=== PATIENT | female | born 1965 ===

== ENCOUNTER → 2020-04-28 13:29 | Outpatient (BNVA) | payer MEDICAID, SELFPAY | PROVIDERS: PCP Internal Medicine; Visit Provider Internal Medicine ==

== ENCOUNTER 2020-06-26 15:23 | Outpatient (REF) | payer OTHER, SELFPAY ==
--- NOTE | ~2020-06-26 | US_ITS ---
EXAMINATION: PELVIC ULTRASOUND CLINICAL INFORMATION: Pelvic and perineal pain. COMPARISON: None TECHNIQUE: Transabdominal and transvaginal pelvic ultrasound performed. FINDINGS: Uterus: 9.2 x 3.3 x 4.3 cm. No masses. Right ovary 1.5 x 1 x 1.8 cm with a volume 1.3 mL. Left ovary 1.8 x 1.3 x 1.7 cm with a volume of 2 mL. Nabothian cysts noted in the cervix. Cul-de-sac Fluid: None. US/US pelvic and transvaginal IMPRESSION: Normal pelvic ultrasound.
== END 2020-06-26 15:24 | disposition home or self-care (01) ==
LOC: HO.US 15:23
PROVIDERS: PCP Internal Medicine; Visit Provider Internal Medicine
DX: R10.2 Pelvic and perineal pain (principal)
CPT/HCPCS: 76830; 76856

== ENCOUNTER → 2020-10-23 13:19 | Outpatient (BNVA) | payer OTHER, SELFPAY | PROVIDERS: PCP Internal Medicine; Visit Provider Internal Medicine | DX: J45.909 Unspecified asthma, uncomplicated (principal) | CPT/HCPCS: 99212 ==

== ENCOUNTER 2020-11-13 12:30 | Outpatient (REF) | payer OTHER, SELFPAY ==
--- NOTE | ~2020-11-13 | XR_ITS ---
EXAMINATION: XR KNEE, RIGHT CLINICAL INFORMATION: Pain COMPARISON: None TECHNIQUE: Four views of the right knee. FINDINGS: Bone alignment is normal. No fracture or dislocation is seen. There may be mild arthritis at the medial femoral tibial joint seen on the sunrise view. The joint spaces are otherwise normal. There is no joint effusion. XR/XR knee RT 3V IMPRESSION: Question mild arthritis at the medial femoral tibial joint otherwise unremarkable exam.
[2020-11-13 13:12] LABS: MANUAL DIFF FLAG NO
[2020-11-13 13:17] LABS: Basophils Absolute Auto 0.1 X10*3/uL (0.0-0.2); Basophils Percent Auto 0.6 % (0-2); Eosinophils Absolute Auto 0.2 X10*3/uL (0.0-0.4); Eosinophils Percent Auto 1.6 % (0-4); Hematocrit 36.1 % (37-47); Hemoglobin 11.1 g/dl (12.0-16.0); Imm Gran Abs Auto 0.04 X10*3/uL (0.00-0.03); Imm Gran Pct Auto 0.4 % (0.0-0.4); Lymphocytes Percent Auto 20.2 % (20-40); Mean Corpuscular HGB Conc 30.7 g/dl (31.0-35.0); Mean Corpuscular Volume 87.8 fL (80-98); Monocytes Absolute Auto 0.5 X10*3/uL (0.1-1.2); Monocytes Percent Auto 4.8 % (2-11); Neutrophils Absolute Auto 7.3 X10*3/uL (2.0-8.3); Neutrophils Percent Auto 72.4 % (45-73); Platelet Count 336 X10*3/uL (160-400); Red Blood Count 4.11 X10*6/uL (4.20-5.50); Red Cell Distribution Width 14.8 % (11.0-16.0); White Blood Count 10.1 X10*3/uL (4.8-10.8)
[2020-11-13 13:46] LABS: Alanine Aminotransferase 14 U/L (0-31); Albumin Level 3.9 g/dL (3.5-5.0); Alkaline Phosphatase 131 U/L (39-117); Anion Gap 12 (12-20); Aspartate Amino Transferase 18 U/L (5-31); Bilirubin Total 0.5 mg/dL (0.0-1.0); Blood Urea Nitrogen 9 mg/dL (9-16); Carbon Dioxide 27 mmol/L (22-29); Chloride 106 mmol/L (96-108); Cholesterol 210 mg/dL; Estimated Glomerular Filt Rate > 60; Glucose Fasting 101 mg/dL (60-99); HDL Cholesterol 41 mg/dL; Iron 47 mcg/dL (30-160); LDL Cholesterol Calculated 137 mg/dl; Percent Iron Saturation 14 % (15-50); Potassium 3.6 mmol/L (3.3-5.1); Sodium 141 mmol/L (135-145); Total Iron Binding Capacity 341 mcg/dL (228-428); Total Protein 7.5 g/dL (6.5-8.0); Triglycerides 162 mg/dL; Unsaturated Iron Binding 294 ug/dL
[2020-11-13 14:06] LABS: TSH reflex Free T4 0.67 uIU/mL (0.32-4.0)
[2020-11-13 14:18] LABS: Folate 15.7 ng/mL (> or = 4.0); Vitamin B12 188 pg/mL (200-900)
[2020-11-19 12:16] LABS: Vitamin D 25-OH, D2 <4 ng/mL; Vitamin D 25-OH, D3 18 ng/mL; Vitamin D 25-OH, Total 18 ng/mL (30-100)
== END 2020-11-13 12:31 | disposition home or self-care (01) ==
LOC: HO.LAB 12:30
PROVIDERS: PCP Internal Medicine; Visit Provider Internal Medicine
DX: Z01.419 Encounter for gynecological examination (general) (routine) without abnormal findings (principal); N89.8 Other specified noninflammatory disorders of vagina; N95.2 Postmenopausal atrophic vaginitis; E55.9 Vitamin D deficiency, unspecified; M25.561 Pain in right knee; E78.5 Hyperlipidemia, unspecified; K21.9 Gastro-esophageal reflux disease without esophagitis; D64.9 Anemia, unspecified; D50.9 Iron deficiency anemia, unspecified; E66.3 Overweight
CPT/HCPCS: 36415; 73562; 80053; 80061; 82306; 82607; 82746; 83540; 84443; 85025

== ENCOUNTER 2020-12-10 15:53 | Outpatient (REF) | payer OTHER, SELFPAY ==
[2020-12-10 16:42] LABS: MANUAL DIFF FLAG NO
[2020-12-10 16:48] LABS: Basophils Absolute Auto 0.1 X10*3/uL (0.0-0.2); Basophils Percent Auto 0.6 % (0-2); Eosinophils Absolute Auto 0.2 X10*3/uL (0.0-0.4); Eosinophils Percent Auto 2.1 % (0-4); Hematocrit 35.9 % (37-47); Hemoglobin 11.2 g/dl (12.0-16.0); Imm Gran Abs Auto 0.05 X10*3/uL (0.00-0.03); Imm Gran Pct Auto 0.4 % (0.0-0.4); Lymphocytes Absolute Auto 4.3 X10*3/uL (1.2-4.9); Lymphocytes Percent Auto 36.9 % (20-40); Mean Corpuscular HGB Conc 31.2 g/dl (31.0-35.0); Mean Corpuscular Hemoglobin 27.5 pg (27.0-33.0); Mean Platelet Volume 10.6 fL (9.4-12.3); Monocytes Absolute Auto 0.4 X10*3/uL (0.1-1.2); Monocytes Percent Auto 3.5 % (2-11); Neutrophils Absolute Auto 6.5 X10*3/uL (2.0-8.3); Neutrophils Percent Auto 56.5 % (45-73); Platelet Count 348 X10*3/uL (160-400); Red Blood Count 4.08 X10*6/uL (4.20-5.50); Red Cell Distribution Width 14.4 % (11.0-16.0); White Blood Count 11.5 X10*3/uL (4.8-10.8)
[2020-12-10 17:05] LABS: Alanine Aminotransferase 18 U/L (0-31); Albumin Level 3.8 g/dL (3.5-5.0); Alkaline Phosphatase 108 U/L (39-117); Anion Gap 12 (12-20); Aspartate Amino Transferase 17 U/L (5-31); Bilirubin Total < 0.2 mg/dL (0.0-1.0); Blood Urea Nitrogen 8 mg/dL (9-16); Calcium 8.8 mg/dL (8.4-10.2); Carbon Dioxide 27 mmol/L (22-29); Chloride 104 mmol/L (96-108); Cholesterol 211 mg/dL; Estimated Glomerular Filt Rate > 60; Glucose Fasting 99 mg/dL (60-99); HDL Cholesterol 37 mg/dL; LDL Cholesterol Calculated 131 mg/dl; Potassium 3.5 mmol/L (3.3-5.1); Sodium 139 mmol/L (135-145); Total Protein 7.2 g/dL (6.5-8.0); Triglycerides 218 mg/dL
[2020-12-16 00:22] LABS: Intrinsic Factor Antibodies Negative (Negative)
[2020-12-16 11:51] LABS: Parietal Cell Antibody <=20.0 Unit (<=20.0)
[2020-12-16 16:41] LABS: Vitamin D 25-OH, D2 <4 ng/mL; Vitamin D 25-OH, D3 13 ng/mL; Vitamin D 25-OH, Total 13 ng/mL (30-100)
== END 2020-12-10 15:54 | disposition home or self-care (01) ==
LOC: HO.LAB 15:53
PROVIDERS: PCP Internal Medicine; Visit Provider Internal Medicine
DX: E66.3 Overweight (principal); E53.8 Deficiency of other specified B group vitamins; E55.9 Vitamin D deficiency, unspecified; D64.9 Anemia, unspecified; E78.5 Hyperlipidemia, unspecified
CPT/HCPCS: 36415; 80053; 80061; 82306; 83516; 85025; 86340

== ENCOUNTER → 2021-06-01 13:26 | Outpatient (BNVA) | payer OTHER, SELFPAY | PROVIDERS: PCP Internal Medicine; Visit Provider Internal Medicine | DX: J45.909 Unspecified asthma, uncomplicated (principal) | CPT/HCPCS: 99212 ==

== ENCOUNTER 2021-07-30 15:33 | Outpatient (REF) | payer OTHER, SELFPAY ==
--- NOTE | 2021-07-30 15:38 | ECG_ITS ---
Test Reason : abn ekg Blood Pressure : / mmHG Vent. Rate : 092 BPM Atrial Rate : 092 BPM P-R Int : 160 ms QRS Dur : 078 ms QT Int : 382 ms P-R-T Axes : 063 065 062 degrees QTc Int : 472 ms Normal sinus rhythm Normal ECG When compared with ECG of 26-OCT-2005 07:32, No significant change was found Referred By: Susannah Manzo Electronically Signed By:PRATEEK VELASQUEZ MD
[2021-07-30 15:49] LABS: MANUAL DIFF FLAG NO
[2021-07-30 16:04] LABS: Basophils Absolute Auto 0.1 X10*3/uL (0.0-0.2); Basophils Percent Auto 0.9 % (0-2); Eosinophils Absolute Auto 0.3 X10*3/uL (0.0-0.4); Eosinophils Percent Auto 3.2 % (0-4); Hematocrit 30.5 % (37.0-47.0); Hemoglobin 9.2 g/dl (12.0-16.0); Imm Gran Abs Auto 0.04 X10*3/uL (0.00-0.03); Imm Gran Pct Auto 0.4 % (0.0-0.4); Immature Retic Fraction 15.2 % (3.0-15.9); Lymphocytes Absolute Auto 2.6 X10*3/uL (1.2-4.9); Lymphocytes Percent Auto 26.2 % (20-40); Mean Corpuscular HGB Conc 30.2 g/dl (31.0-35.0); Mean Corpuscular Hemoglobin 26.4 pg (27.0-33.0); Mean Corpuscular Volume 87.4 fL (80.0-98.0); Mean Platelet Volume 9.7 fL (9.4-12.3); Monocytes Absolute Auto 0.5 X10*3/uL (0.1-1.2); Monocytes Percent Auto 4.8 % (2-11); Neutrophils Absolute Auto 6.3 x10*3/uL (2.0-8.3); Neutrophils Percent Auto 64.5 % (45-73); Platelet Count 684 X10*3/uL (160-400); Red Blood Count 3.49 X10*6/uL (4.20-5.50); Red Cell Distribution Width 14.7 % (11.0-16.0); Retic HGB Equivalent 26.6 pg (30.0-35.0); Reticulocyte Percent 2.2 % (0.5-1.8); Reticulocytes Absolute 0.076 X10*6/uL (0.026-0.095); White Blood Count 9.8 X10*3/uL (4.8-10.8)
[2021-07-30 16:32] LABS: Glucose Random 93 mg/dL (60-115)
[2021-07-30 16:33] LABS: Alanine Aminotransferase 10 U/L (0-31); Albumin Level 3.8 g/dL (3.5-5.0); Alkaline Phosphatase 119 U/L (39-117); Anion Gap 13 (12-20); Aspartate Amino Transferase 17 U/L (5-31); Bilirubin Total < 0.2 mg/dL (0.0-1.0); Blood Urea Nitrogen 13 mg/dL (9-16); Calcium 8.9 mg/dL (8.4-10.2); Carbon Dioxide 23 mmol/L (22-29); Chloride 106 mmol/L (96-108); Estimated Glomerular Filt Rate 54; Iron 32 mcg/dL (30-160); Percent Iron Saturation 9 % (15-50); Potassium 4.2 mmol/L (3.3-5.1); Sodium 138 mmol/L (135-145); Total Iron Binding Capacity 367 mcg/dL (228-428); Total Protein 7.8 g/dL (6.5-8.0); Unsaturated Iron Binding 335 ug/dL
[2021-07-30 16:55] LABS: Ferritin 51 ng/mL (10-250); TSH reflex Free T4 0.56 uIU/mL (0.32-4.0); Vitamin D 25-OH Total 38.4 ng/mL (>30)
[2021-07-30 17:09] LABS: Folate > 20.0 ng/mL (> or = 4.0); Vitamin B12 234 pg/mL (200-900)
== END 2021-07-30 15:34 | disposition home or self-care (01) ==
LOC: HO.LAB 15:33
PROVIDERS: Absent Provider Internal Medicine; PCP Internal Medicine; Visit Provider Nurse Practitioner Family
DX: Z13.29 Encounter for screening for other suspected endocrine disorder (principal); D50.9 Iron deficiency anemia, unspecified; E53.8 Deficiency of other specified B group vitamins; R94.31 Abnormal electrocardiogram [ECG] [EKG]; Z96.641 Presence of right artificial hip joint
CPT/HCPCS: 36415; 80053; 82306; 82607; 82728; 82746; 83540; 84443; 85025; 85045; 93005

== ENCOUNTER 2021-08-20 16:07 | Outpatient (REF) | payer OTHER, SELFPAY ==
[2021-08-20 16:28] LABS: MANUAL DIFF FLAG NO
[2021-08-20 16:35] LABS: Basophils Absolute Auto 0.1 X10*3/uL (0.0-0.2); Eosinophils Absolute Auto 0.2 X10*3/uL (0.0-0.4); Eosinophils Percent Auto 2.4 % (0-4); Hemoglobin 8.9 g/dl (12.0-16.0); Imm Gran Abs Auto 0.02 X10*3/uL (0.00-0.03); Imm Gran Pct Auto 0.2 % (0.0-0.4); Lymphocytes Absolute Auto 2.9 X10*3/uL (1.2-4.9); Lymphocytes Percent Auto 30.4 % (20-40); Mean Corpuscular HGB Conc 30.7 g/dl (31.0-35.0); Mean Corpuscular Volume 87.9 fL (80.0-98.0); Mean Platelet Volume 10.4 fL (9.4-12.3); Monocytes Absolute Auto 0.5 X10*3/uL (0.1-1.2); Neutrophils Absolute Auto 5.8 x10*3/uL (2.0-8.3); Platelet Count 334 X10*3/uL (160-400); Red Cell Distribution Width 14.5 % (11.0-16.0); White Blood Count 9.6 X10*3/uL (4.8-10.8)
[2021-08-20 16:57] LABS: Alanine Aminotransferase 12 U/L (0-31); Albumin Level 3.8 g/dL (3.5-5.0); Alkaline Phosphatase 109 U/L (39-117); Anion Gap 12 (12-20); Aspartate Amino Transferase 18 U/L (5-31); Bilirubin Total 0.2 mg/dL (0.0-1.0); Blood Urea Nitrogen 12 mg/dL (9-16); C Reactive Protein 0.59 mg/dL (< or = 0.50); Calcium 8.8 mg/dL (8.4-10.2); Carbon Dioxide 27 mmol/L (22-29); Chloride 103 mmol/L (96-108); Cholesterol 190 mg/dL; Estimated Glomerular Filt Rate 54; Glucose Fasting 93 mg/dL (60-99); HDL Cholesterol 44 mg/dL; Iron 23 mcg/dL (30-160); LDL Cholesterol Calculated 125 mg/dl; Percent Iron Saturation 7 % (15-50); Potassium 3.7 mmol/L (3.3-5.1); Sodium 138 mmol/L (135-145); Total Iron Binding Capacity 352 mcg/dL (228-428); Total Protein 7.3 g/dL (6.5-8.0); Triglycerides 109 mg/dL; Unsaturated Iron Binding 329 ug/dL
[2021-08-20 17:18] LABS: Thyroid Stimulating Hormone 0.74 uIU/mL (0.32-4.0)
[2021-08-20 17:32] LABS: Erythrocyte Sedimentation Rate 33 MM/HR (0-20)
[2021-08-20 17:37] LABS: Folate > 20.0 ng/mL (> or = 4.0); Vitamin B12 214 pg/mL (200-900)
[2021-08-25 14:32] LABS: Vitamin D 25-OH, D2 62 ng/mL; Vitamin D 25-OH, D3 6 ng/mL; Vitamin D 25-OH, Total 68 ng/mL (30-100)
== END 2021-08-20 16:08 | disposition home or self-care (01) ==
LOC: HO.LAB 16:07
PROVIDERS: PCP Internal Medicine; Visit Provider Nurse Practitioner Family
DX: D50.9 Iron deficiency anemia, unspecified (principal); E55.9 Vitamin D deficiency, unspecified; M79.7 Fibromyalgia; D64.9 Anemia, unspecified; E53.8 Deficiency of other specified B group vitamins; E78.00 Pure hypercholesterolemia, unspecified; E66.3 Overweight; E78.5 Hyperlipidemia, unspecified; Z96.641 Presence of right artificial hip joint
CPT/HCPCS: 36415; 80053; 80061; 82306; 82607; 82746; 83540; 84443; 85025; 85027; 85652; 86140

== ENCOUNTER → 2021-10-16 10:10 | Outpatient (BNVA) | payer OTHER, SELFPAY | PROVIDERS: PCP Internal Medicine; Visit Provider Nurse Practitioner Family | DX: Z12.11 Encounter for screening for malignant neoplasm of colon (principal); K21.9 Gastro-esophageal reflux disease without esophagitis | CPT/HCPCS: 99202; 99212 ==

== ENCOUNTER 2021-10-30 10:50 | Outpatient (REF) | payer OTHER, SELFPAY ==
--- NOTE | ~2021-10-30 | US_ITS ---
EXAMINATION: MM DIAGNOSTIC DIGITAL BREAST TOMOSYNTHESIS, BILATERAL US DIAGNOSTIC ULTRASOUND BREAST, LEFT CLINICAL INFORMATION: Due for yearly. Palpable concern noted by patient outer left breast for approximately 6 months. The lifetime risk of breast cancer based on the Tyrer-Cuzick Model is 11%. COMPARISON: Outside mammography: 01/16/2021, 12/07/2019, 07/08/2016 ([facility]). TECHNIQUE: Digital breast tomosynthesis is performed in both the craniocaudal and mediolateral oblique views along with computer-aided detection (CAD). Synthesized 2D images are generated from the tomosynthesis. Ultrasound left breast is targeted to the outer quadrant using grayscale imaging and color Doppler without and with harmonics. Patient is able to directly point to area of concern at time of imaging. FINDINGS: There are scattered areas of fibroglandular density (ACR BI-RADS breast composition Category b). There are no significant masses, abnormal calcifications, or other abnormalities. Parenchymal pattern is similar to prior outside studies. There is no developing density or architectural abnormality. The axilla and skin contours are unremarkable. No significant changes. Ultrasound demonstrates no cystic or solid mass or architectural abnormality. No focal duct ectasia. No skin thickening or edema tracking in soft tissue planes. Results are discussed with the patient at time of visit. US/US breast LT limited IMPRESSION: -No mammographic evidence of malignancy. No significant changes from prior outside studies. -Unremarkable left ultrasound. ASSESSMENT: BI-RADS 1: Negative RECOMMENDATION: Routine annual mammography screening. This patient's information was entered into a reminder system with a target due date for their next mammogram.
== END 2021-10-30 10:51 | disposition home or self-care (01) ==
LOC: HO.MAMMO 10:50
PROVIDERS: PCP Internal Medicine; Visit Provider Internal Medicine
DX: N63.25 Unspecified lump in the left breast, overlapping quadrants (principal)
CPT/HCPCS: 76642; 77062; 77066

== ENCOUNTER → 2021-11-30 13:15 | Outpatient (BNVA) | payer OTHER, SELFPAY | PROVIDERS: PCP Internal Medicine; Visit Provider Internal Medicine | DX: J45.909 Unspecified asthma, uncomplicated (principal) | CPT/HCPCS: 99212 ==

== ENCOUNTER 2022-01-07 15:35 | Outpatient (REF) | payer OTHER, SELFPAY ==
[2022-01-07 15:50] LABS: MANUAL DIFF FLAG NO
[2022-01-07 16:26] LABS: Basophils Absolute Auto 0.1 X10*3/uL (0.0-0.2); Basophils Percent Auto 0.9 % (0-2); Eosinophils Absolute Auto 0.3 X10*3/uL (0.0-0.4); Eosinophils Percent Auto 2.6 % (0-4); Hematocrit 38.7 % (37.0-47.0); Hemoglobin 12.1 g/dl (12.0-16.0); Imm Gran Abs Auto 0.04 X10*3/uL (0.00-0.03); Imm Gran Pct Auto 0.4 % (0.0-0.4); Lymphocytes Percent Auto 29.1 % (20-40); Mean Corpuscular HGB Conc 31.3 g/dl (31.0-35.0); Mean Corpuscular Hemoglobin 28.7 pg (27.0-33.0); Mean Corpuscular Volume 91.9 fL (80.0-98.0); Mean Platelet Volume 11.1 fL (9.4-12.3); Monocytes Absolute Auto 0.5 X10*3/uL (0.1-1.2); Monocytes Percent Auto 4.5 % (2-11); Neutrophils Absolute Auto 6.4 x10*3/uL (2.0-8.3); Neutrophils Percent Auto 62.5 % (45-73); Platelet Count 304 X10*3/uL (160-400); Red Blood Count 4.21 X10*6/uL (4.20-5.50); White Blood Count 10.2 X10*3/uL (4.8-10.8)
[2022-01-07 16:39] LABS: Iron 111 mcg/dL (30-160); Percent Iron Saturation 35 % (15-50); Total Iron Binding Capacity 320 mcg/dL (228-428); Unsaturated Iron Binding 209 ug/dL
[2022-01-07 17:00] LABS: Vitamin D 25-OH Total 23.3 ng/mL (>30)
[2022-01-07 17:25] LABS: Folate > 20.0 ng/mL (> or = 4.0); Vitamin B12 1388 pg/mL (200-900)
== END 2022-01-07 15:36 | disposition home or self-care (01) ==
LOC: HO.LAB 15:35
PROVIDERS: Internal Medicine; PCP Internal Medicine; Visit Provider Internal Medicine
DX: D50.9 Iron deficiency anemia, unspecified (principal); D64.9 Anemia, unspecified; E53.8 Deficiency of other specified B group vitamins; E55.9 Vitamin D deficiency, unspecified
CPT/HCPCS: 36415; 82306; 82607; 82746; 83540; 85025

== ENCOUNTER → 2022-05-27 13:19 | Outpatient (BNVA) | payer OTHER, SELFPAY | PROVIDERS: PCP Internal Medicine; Visit Provider Internal Medicine | DX: J45.909 Unspecified asthma, uncomplicated (principal) | CPT/HCPCS: 94010; 99212 ==

== ENCOUNTER 2022-06-11 10:55 | Day surgery (SDC) | payer OTHER, SELFPAY ==
[2022-06-04 20:03] VITALS: BMI 26.2
--- NOTE | 2022-06-10 12:52 | HO.ANESPROP2 ---
HPI - Anesthesia Eval Consult details Narrative: 57yo F for Upper Endoscopy and Colonoscopy [facility] Active Problems Active Problems: All Active Problems (Updated 05/27/22 @ 15:41 by Susannah Manzo MD) Encounter for annual routine gynecological examination (Acute) Atrophic vaginitis (Acute) Upper respiratory tract infection (Acute) Status post total hip replacement, right (Acute) Screening for hypothyroidism (Acute) Hypotension (Acute) Left breast mass (Acute) Lumbar pain (Acute) Dysphagia (Acute) Physical exam (Acute) Skin lesion (Acute) Normocytic anemia (Acute) Asthma (Acute) Mild recurrent major depression (Acute) Insomnia (Acute) Pure hypercholesterolemia (Acute) Hypovitaminosis D (Acute) Osteoarthritis of right knee (Acute) B12 deficiency (Acute) Allergic rhinitis (Acute) Right knee pain (Acute) Lumbar pain (Acute) Pelvic pain (Acute) Overweight (Acute) Microcytic anemia (Acute) Depression with anxiety (Acute) Fibromyalgia (Acute) GERD (gastroesophageal reflux disease) (Acute) Asthma (Acute) Past Medical History Medical History Allergic rhinitis Asthma Asthma B12 deficiency Depression with anxiety Fibromyalgia GERD (gastroesophageal reflux disease) Hypovitaminosis D Insomnia Lumbar pain Microcytic anemia Mild recurrent major depression Normocytic anemia Osteoarthritis of right knee Overweight Pelvic pain Pure hypercholesterolemia Right knee pain Family History Family History Mother Hypertension Breast cancer, Onset Age: 73 Father No problems noted. Surgical History Surgical History History of esophagogastroduodenoscopy (EGD) History of total right hip replacement Hx laparoscopic cholecystectomy Hx of colonoscopy Previous section Social History Social History Household Members: Spouse and Children Housing: House Alcohol intake: never Patient Tobacco Use Status: Never used Tobacco e-Cigarette/Vaping Use: Never Used Second Hand Smoke Exposure: No service: No Current occupational status: disabled Sexual orientation: Straight/Heterosexual Gender identity: Female Cognitive needs: No Hearing needs: No Vision needs: Yes (reading glasses) Meds Allergies Allergy/AdvReac Type Severity Reaction Status Date / Time No Known Allergies Allergy Verified 06/25/22 14:35 Home Medications Medication Instructions Recorded Confirmed Last Taken Type clonazepam 0.5 mg tablet 0.5 mg PO TID 04/28/20 06/04/22 06/11/22 History gabapentin 300 mg capsule 300 mg PO TID PRN Pain 04/28/20 06/04/22 06/11/22 History Exam Exam Date and Time: June 10, 2022 1253 Height,Weight and Vital Signs: Height 5 ft 1 in Weight 63.049 kg Narrative Narrative: 05/2022 SPIROMETRY : FVC 79%,? FEV1 76%,? FEF 25-75 ? ? 65% THESE NUMBERS ARE SLIGHTLY DECREASED COMPARED TO THE PFT IN 2019. INDICATED OF OF MILD OBSTRUCTIVE DISORDER. Assessment and Plan Assessment Anesthesia Assessment: Chart Reviewed
[2022-06-11 11:10] VITALS: BP 137/90; PULSE 89; RESP 18; TEMP 36.1; O2SAT 97
[2022-06-11] MEDS: Lactated Ringers 1,000 ML 100 ML IVCONT (11:28)
--- NOTE | 2022-06-11 13:24 | MHC.SHP ---
Pre-Procedural Eval Section A Date of Service: 06/11/22 The patient is an INPATIENT: No The History & Physical has been completed within 30 days and I have reviewed it.: No Section B Chief Complaint: screening,reflux Relevant Family History (Specify if Yes): No Relevant Social History: None Present Medications: see Short Stay Collaborative assessment Medical History: Significant History (Asthma B12 deficiency Depression with anxiety Fibromyalgia GERD (gastroesophageal reflux disease) Hypovitaminosis D Insomnia Lumbar pain Microcytic anemia Mild recurrent major depression Normocytic anemia Osteoarthritis of right knee Overweight Pelvic pain Pure hypercholesterolemia) History of Previous Operations: Relevant previous surgery/procedure and date(s) (History of total right hip replacement Hx laparoscopic cholecystectomy Previous section) Allergies: Allergies Allergy/AdvReac Type Severity Reaction Status Date / Time No Known Allergies Allergy Verified 05/27/22 15:21 Review of Systems Sugical H&P ROS: Negative: Constitution, Cardiovascular and Respiratory Exam Surgical H&P Exam: Normal: Heart, Normal: Lungs, Normal: Extremities and Normal: Abdomen Plan Diagnosis/Plan: Unchanged I have reviewed the history and physical and performed a pertinent physical examination on my patient. No changes have occurred unless specified. Time Spent With Patient Time: Total time managing care of this patient today ____ minutes.
--- NOTE | 2022-06-11 14:36 | P.BOP_ITS ---
Brief Operative Note Date of Service: 06/11/22 Pre-op diagnosis: GERD, LONG, dysphagia Post-op diagnosis: other (GERD, dysphagia, gastritis) Procedure: FLEXIBLE TRANSORAL UPPER GASTROINTESTINAL ENDOSCOPY WITH BIOPSIES AND ESOPHAGEAL BALLOON DILATION Surgeon: Anand Torres MD Anesthesia: MAC Was an Senior Marketing Coordinator used for this Procedure?: No Senior Marketing Coordinator: Lucía Malloy Estimated blood loss (mL): 0 Pathology: other (A. small bowel bxs, R/O celiac B. gastric antrum bxs, R/O H. pylori C. gastric body bxs D. proximal esophagus bxs, R/O EoE) Condition: stable Disposition: PACU
--- NOTE | 2022-06-11 14:39 | P.OP_ITS ---
Operative Note Operative Note Date of Service: 06/11/22 Narrative: Pre-op diagnosis: GERD, LONG, dysphagia Post-op diagnosis:?other (GERD, dysphagia, gastritis) Surgeon: Anand Torres MD Anesthesia:?MAC FLEXIBLE TRANSORAL UPPER GASTROINTESTINAL ENDOSCOPY WITH ESOPHAGEAL BRUSHINGS, BIOPSIES AND ESOPHAGEAL BALLOON DILATION Consent: Indications for the procedure and potential complications of bleeding, perforation, reaction to medications and missed diagnosis were discussed with the patient and informed consent was obtained. Instrument: Olympus GIF H 190 mid size upper endoscope Monitoring: Vital signs and clinical assessment, continuous EKG monitoring, Pulse oximetry, Carbon Dioxide monitoring and blood pressure monitoring were done throughout the procedure. Procedure: The patient was placed in the left lateral decubitis position and pre-procedure medications were administered and a bite block was placed. The endoscope was inserted into the mouth and advanced under direct vision to the third part of duodenum. A careful inspection was made as the upper endoscope was withdrawn including a retroflexed examination of the proximal stomach; Findings and interventions are described below. Findings: Larynx: Normal Esophagus: Tortuous esophagus with increased tertiary contractions without stricture or ring - Biopsies obtained from proximal esophagus to check for EOE. Scattered yellow/white exudate throughout the esophagus - brushings obtained to check for Jayna. GE junction at 36 cms. No esophagitis or Katz's. Empiric balloon dilation was performed with a 20 mm (60 F) CRE balloon x 60 seconds Stomach: Moderate diffuse gastric erythema with scattered submucosal hemorrhages in the gastric body. Biopsies were obtained from the antrum and body of the stomach. Grade 2 flap valve on retroflexed examination of the cardia. Duodenum: Normal bulb and descending duodenum. Biopsies were obtained from 3rd part of the duodenum to check for celiac sprue Intervention: Biopsies as noted above Impression and Post Procedure Diagnosis: Endoscopy Findings: ESOPHAGUS: Tortuous esophagus with increased tertiary contractions without stricture or ring - Biopsies obtained from proximal esophagus to check for EOE. Scattered yellow/white exudate throughout the esophagus - brushings obtained to check for Jayna. GE junction at 36 cms. No esophagitis or Katz's. Empiric balloon dilation was performed with a 20 mm (60 F) CRE balloon x 60 seconds STOMACH: Diffuse gastritis with submucosal hemorrhages in the gastrc body DUODENUM: Normal - biopsied to check for celiac sprue Plan: Await pathology results Patient has an appointment on 06/25/22 in the GI Clinic with Jessica Ruffin FNP- [facility] . If pt continues to have dysphagia, consider further evaluation with a barium swallow. Above findings were reviewed with the patient and GERD and Esophageal Dilation handouts were given in the discharge area
[2022-06-11 14:40] VITALS: BP 120/88; PULSE 97; RESP 18; TEMP 36.5; O2SAT 99
[2022-06-11 14:55] VITALS: BP 136/90; PULSE 100; RESP 18; O2SAT 97
[2022-06-11 15:10] VITALS: BP 138/96; PULSE 96; RESP 16; TEMP 36.4; O2SAT 96
== END 2022-06-11 15:47 | disposition home or self-care (01) ==
PROVIDERS: PCP Internal Medicine; Visit Provider Internal Medicine Gastroenterology
PROC: 0DJ08ZZ Inspection of Upper Intestinal Tract, Via Natural or Artificial Opening Endoscopic (ICD-10-PCS; CPT 43235; principal; 2022-06-11 12:00)
DX: K21.9 Gastro-esophageal reflux disease without esophagitis (principal); D50.9 Iron deficiency anemia, unspecified; K22.89 Other specified disease of esophagus; K29.51 Unspecified chronic gastritis with bleeding; A04.8 Other specified bacterial intestinal infections; R13.10 Dysphagia, unspecified; E53.8 Deficiency of other specified B group vitamins; J45.909 Unspecified asthma, uncomplicated; F41.8 Other specified anxiety disorders; M79.7 Fibromyalgia; E55.9 Vitamin D deficiency, unspecified; G47.00 Insomnia, unspecified; E66.9 Obesity, unspecified; Z68.26 Body mass index [BMI] 26.0-26.9, adult; Z79.899 Other long term (current) drug therapy
CPT/HCPCS: 43249; 43239; 87102; 87106; 88305; 88342; C1726

== ENCOUNTER 2022-06-22 12:22 | Outpatient (REF) | payer OTHER, SELFPAY ==
[2022-06-22 12:35] LABS: MANUAL DIFF FLAG NO
[2022-06-22 13:17] LABS: Basophils Absolute Auto 0.1 X10*3/uL (0.0-0.2); Basophils Percent Auto 0.9 % (0-2); Eosinophils Absolute Auto 0.2 X10*3/uL (0.0-0.4); Eosinophils Percent Auto 1.6 % (0-4); Hematocrit 37.2 % (37.0-47.0); Hemoglobin 11.7 g/dl (12.0-16.0); Imm Gran Abs Auto 0.03 X10*3/uL (0.00-0.03); Imm Gran Pct Auto 0.3 % (0.0-0.4); Lymphocytes Absolute Auto 2.2 X10*3/uL (1.2-4.9); Lymphocytes Percent Auto 24.5 % (20-40); Mean Corpuscular HGB Conc 31.5 g/dl (31.0-35.0); Mean Corpuscular Hemoglobin 28.8 pg (27.0-33.0); Mean Corpuscular Volume 91.6 fL (80.0-98.0); Mean Platelet Volume 11.1 fL (9.4-12.3); Monocytes Absolute Auto 0.5 X10*3/uL (0.1-1.2); Monocytes Percent Auto 4.9 % (2-11); Neutrophils Absolute Auto 6.2 x10*3/uL (2.0-8.3); Neutrophils Percent Auto 67.8 % (45-73); Platelet Count 317 X10*3/uL (160-400); Red Blood Count 4.06 X10*6/uL (4.20-5.50); Red Cell Distribution Width 13.8 % (11.0-16.0); White Blood Count 9.1 X10*3/uL (4.8-10.8)
[2022-06-22 13:49] LABS: Alanine Aminotransferase 14 U/L (0-31); Albumin Level 4.1 g/dL (3.5-5.0); Alkaline Phosphatase 112 U/L (39-117); Anion Gap 14 (12-20); Aspartate Amino Transferase 22 U/L (5-31); Bilirubin Total 0.4 mg/dL (0.0-1.0); Blood Urea Nitrogen 8 mg/dL (9-16); Calcium 9.1 mg/dL (8.4-10.2); Carbon Dioxide 28 mmol/L (22-29); Chloride 101 mmol/L (96-108); Cholesterol 221 mg/dL; Estimated Glomerular Filt Rate 56; Glucose Fasting 92 mg/dL (60-99); HDL Cholesterol 44 mg/dL; Iron 69 mcg/dL (30-160); LDL Cholesterol Calculated 146 mg/dl; Percent Iron Saturation 24 % (15-50); Potassium 3.8 mmol/L (3.3-5.1); Sodium 139 mmol/L (135-145); Total Iron Binding Capacity 289 mcg/dL (228-428); Total Protein 7.6 g/dL (6.5-8.0); Triglycerides 157 mg/dL; Unsaturated Iron Binding 220 ug/dL
[2022-06-22 14:25] LABS: Folate 16.7 ng/mL (> or = 4.0); Vitamin B12 > 2000 pg/mL (200-900); Vitamin D 25-OH Total 36.9 ng/mL (>30)
== END 2022-06-22 12:23 | disposition home or self-care (01) ==
LOC: HO.LAB 12:22
PROVIDERS: PCP Internal Medicine; Visit Provider Internal Medicine
DX: Z01.419 Encounter for gynecological examination (general) (routine) without abnormal findings (principal); D64.9 Anemia, unspecified; Z87.39 Personal history of other diseases of the musculoskeletal system and connective tissue; E55.9 Vitamin D deficiency, unspecified; E53.8 Deficiency of other specified B group vitamins
CPT/HCPCS: 36415; 80053; 80061; 82306; 82607; 82746; 83540; 85025

== ENCOUNTER → 2022-06-25 13:51 | Outpatient (BNVA) | payer OTHER, SELFPAY | PROVIDERS: PCP Internal Medicine; Visit Provider Nurse Practitioner Family | DX: A04.8 Other specified bacterial intestinal infections (principal) | CPT/HCPCS: 99212 ==

== ENCOUNTER → 2022-07-30 14:07 | Outpatient (BNVA) | payer OTHER, SELFPAY | PROVIDERS: PCP Internal Medicine; Visit Provider Nurse Practitioner Family | DX: K21.9 Gastro-esophageal reflux disease without esophagitis (principal); Z30.09 Encounter for other general counseling and advice on contraception; A04.8 Other specified bacterial intestinal infections | CPT/HCPCS: 99212 ==

== ENCOUNTER 2022-09-24 12:09 | Day surgery (SDC) | payer OTHER, SELFPAY ==
--- NOTE | 2022-09-23 10:10 | HO.ANESPROP2 ---
HPI - Anesthesia Eval Consult details Narrative: 57yo F for Colonoscopy [facility] Active Problems Active Problems: All Active Problems (Updated 06/16/22 @ 13:37 by Anand Torres MD) Esophageal candidiasis (Acute) Encounter for annual routine gynecological examination (Acute) Atrophic vaginitis (Acute) Upper respiratory tract infection (Acute) Status post total hip replacement, right (Acute) Screening for hypothyroidism (Acute) Hypotension (Acute) Left breast mass (Acute) Lumbar pain (Acute) Dysphagia (Acute) Physical exam (Acute) Skin lesion (Acute) Normocytic anemia (Acute) Asthma (Acute) Mild recurrent major depression (Acute) Insomnia (Acute) Pure hypercholesterolemia (Acute) Hypovitaminosis D (Acute) Osteoarthritis of right knee (Acute) B12 deficiency (Acute) Allergic rhinitis (Acute) Right knee pain (Acute) Lumbar pain (Acute) Pelvic pain (Acute) Overweight (Acute) Microcytic anemia (Acute) Depression with anxiety (Acute) Fibromyalgia (Acute) GERD (gastroesophageal reflux disease) (Acute) Asthma (Acute) Past Medical History Medical History Allergic rhinitis Asthma Asthma B12 deficiency Depression with anxiety Fibromyalgia GERD (gastroesophageal reflux disease) Hypovitaminosis D Insomnia Lumbar pain Microcytic anemia Mild recurrent major depression Normocytic anemia Osteoarthritis of right knee Overweight Pelvic pain Pure hypercholesterolemia Right knee pain Family History Family History Mother Hypertension Breast cancer, Onset Age: 73 Father No problems noted. Surgical History Surgical History History of esophagogastroduodenoscopy (EGD) History of total right hip replacement Hx laparoscopic cholecystectomy Hx of colonoscopy Previous section Social History Social History Household Members: Spouse and Children Housing: House Alcohol intake: never Patient Tobacco Use Status: Never used Tobacco e-Cigarette/Vaping Use: Never Used Second Hand Smoke Exposure: No service: No Current occupational status: disabled Sexual orientation: Straight/Heterosexual Gender identity: Female Cognitive needs: No Hearing needs: No Vision needs: Yes (reading glasses) Meds Allergies Allergy/AdvReac Type Severity Reaction Status Date / Time No Known Allergies Allergy Verified 07/30/22 14:14 Home Medications Medication Instructions Recorded Confirmed Last Taken Type clonazepam 0.5 mg tablet 0.5 mg PO TID 04/28/20 09/22/22 06/11/22 History gabapentin 300 mg capsule 300 mg PO TID PRN Pain 04/28/20 09/22/22 06/11/22 History trazodone 150 mg tablet 150 mg PO BEDTIME insomnia 09/22/22 09/22/22 Unknown History Exam Exam Date and Time: September 23, 2022 1010 Pertinent Lab Results Pertinent Lab Results: Laboratory Tests 06/22/22 06/22/22 12:33 12:33 WBC 9.1 Hgb 11.7 L Hct 37.2 Plt Count 317 Sodium 139 Potassium 3.8 Chloride 101 Carbon Dioxide 28 BUN 8 L Creatinine 1.02
[2022-09-24 12:24] VITALS: BMI 26.4
[2022-09-24 12:27] VITALS: BP 134/86; PULSE 95; RESP 18; TEMP 36.1; O2SAT 99
--- NOTE | 2022-09-24 12:37 | MHC.SHP ---
Pre-Procedural Eval Section A Date of Service: 09/24/22 The patient is an INPATIENT: No The History & Physical has been completed within 30 days and I have reviewed it.: No Section B Chief Complaint: Screening Relevant Family History (Specify if Yes): No Relevant Social History: None Present Medications: see Short Stay Collaborative assessment Medical History: Significant History (Asthma B12 deficiency Depression with anxiety Fibromyalgia GERD (gastroesophageal reflux disease) Hypovitaminosis D Insomnia Lumbar pain Microcytic anemia Mild recurrent major depression Normocytic anemia Osteoarthritis of right knee Overweight Pelvic pain Pure hypercholesterolemia Right knee pain) History of Previous Operations: Relevant previous surgery/procedure and date(s) (History of esophagogastroduodenoscopy (EGD) History of total right hip replacement Hx laparoscopic cholecystectomy Hx of colonoscopy Previous section) Allergies: Allergies Allergy/AdvReac Type Severity Reaction Status Date / Time No Known Allergies Allergy Verified 07/30/22 14:14 Review of Systems Sugical H&P ROS: Negative: Constitution, Cardiovascular, Respiratory and Gastrointestinal Exam Surgical H&P Exam: Normal: Heart, Normal: Lungs, Normal: Extremities and Normal: Abdomen Plan Diagnosis/Plan: Unchanged I have reviewed the history and physical and performed a pertinent physical examination on my patient. No changes have occurred unless specified. Time Spent With Patient Time: Total time managing care of this patient today ____ minutes.
--- NOTE | 2022-09-24 12:41 | HO.ANESPROP2 ---
[facility] Active Problems Active Problems: All Active Problems (Updated 06/16/22 @ 13:37 by Anand Torres MD) Esophageal candidiasis (Acute) Encounter for annual routine gynecological examination (Acute) Atrophic vaginitis (Acute) Upper respiratory tract infection (Acute) Status post total hip replacement, right (Acute) Screening for hypothyroidism (Acute) Hypotension (Acute) Left breast mass (Acute) Lumbar pain (Acute) Dysphagia (Acute) Physical exam (Acute) Skin lesion (Acute) Normocytic anemia (Acute) Asthma (Acute) Mild recurrent major depression (Acute) Insomnia (Acute) Pure hypercholesterolemia (Acute) Hypovitaminosis D (Acute) Osteoarthritis of right knee (Acute) B12 deficiency (Acute) Allergic rhinitis (Acute) Right knee pain (Acute) Lumbar pain (Acute) Pelvic pain (Acute) Overweight (Acute) Microcytic anemia (Acute) Depression with anxiety (Acute) Fibromyalgia (Acute) GERD (gastroesophageal reflux disease) (Acute) Asthma (Acute) Past Medical History Medical History Allergic rhinitis Asthma Asthma B12 deficiency Depression with anxiety Fibromyalgia GERD (gastroesophageal reflux disease) Hypovitaminosis D Insomnia Lumbar pain Microcytic anemia Mild recurrent major depression Normocytic anemia Osteoarthritis of right knee Overweight Pelvic pain Pure hypercholesterolemia Right knee pain Family History Family History Mother Hypertension Breast cancer, Onset Age: 73 Father No problems noted. Family history of problems with anesthesia: No Surgical History Surgical History History of esophagogastroduodenoscopy (EGD) History of total right hip replacement Hx laparoscopic cholecystectomy Hx of colonoscopy Previous section History of Problems with Anesthesia: No Social History Social History Household Members: Spouse and Children Housing: House Alcohol intake: never Patient Tobacco Use Status: Never used Tobacco e-Cigarette/Vaping Use: Never Used Second Hand Smoke Exposure: No Use of substances other than those prescribed or required for medical reasons: No Are you DNR?: No Advance Directives: No Advance Directives Information Provided: Yes service: No Current occupational status: disabled Sexual orientation: Straight/Heterosexual Gender identity: Female Cognitive needs: No Hearing needs: No Vision needs: Yes (reading glasses) Meds Allergies Allergy/AdvReac Type Severity Reaction Status Date / Time No Known Allergies Allergy Verified 07/30/22 14:14 Active Medications: Current Medications Albuterol Sulfate (Albuterol Sulfate (0.083%) 2.5 Mg/3 Ml Vial.Neb) 2.5 mg INHALE ONCE PRN PRN Reason: Shortness of Breath/Wheezing Lactated Ringer's (Lr) 1,000 mls @ 100 mls/hr IVCONT .Q10H [facility] Home Medications Medication Instructions Recorded Confirmed Last Taken Type clonazepam 0.5 mg tablet 0.5 mg PO TID 04/28/20 09/22/22 06/11/22 History gabapentin 300 mg capsule 300 mg PO TID PRN Pain 04/28/20 09/22/22 06/11/22 History trazodone 150 mg tablet 150 mg PO BEDTIME insomnia 09/22/22 09/22/22 Unknown History Exam Exam Date and Time: September 24, 2022 1241 Height,Weight and Vital Signs: Height 5 ft 1 in Weight 63.503 kg Last Vital Signs Temp 97.0 F 09/24/22 12:27 Pulse 95 09/24/22 12:27 Resp 18 09/24/22 12:27 BP 134/86 09/24/22 12:27 Pulse Ox 99 09/24/22 12:27 O2 Del Method Room Air 09/24/22 12:27 Airway Mallampati Class: I TM Dist: >3cm Neck ROM: Full Denture: Upper and Lower Heart: rrr Lungs: clear Assessment and Plan Final Anesthetic Review Family History of Problems with Anesthesia: No History of Problems with Anesthesia: No NPO: Yes ASA Class: III Final Preanesthetic Review: No Changes in Pt Med Stat, Meds/Allgs Chart Reviewed, Consent Obtained/Reviewed and Anes Risks/Benef Reviewed Patient Risk: Intermediate Procedure Risk: Low Anesthetic Plan Anesthetic Plan: MAC: Disposition: Standard PACU
--- NOTE | 2022-09-24 12:43 | W.PM.OPN ---
Operative Note Operative Note Date of Service: 09/24/22 Narrative: COLONOSCOPY TILL CECUM WITH SNARE POLYPECTOMY AND HEMOCLIP PLACEMENT Pre-op diagnosis: colon cancer screening, positive cologuard test Post-op diagnosis:? colon polyps, diverticulosis, hemorrhoids Endoscopist:? Anand Torres MD Anesthesia:?MAC Consent: Indications for the procedure and potential complications of bleeding, perforation, reaction to medications and missed diagnosis were discussed with the patient and informed consent was obtained. Instrument: Olympus PCF H 190 L variable stiffness pediatric colonoscope Monitoring: Vital signs and clinical assessment, intermittent blood pressure monitoring, continuous EKG monitoring, Pulse oximetry and Carbon Dioxide monitoring were done throughout the procedure. Please see anesthesia flowsheet. Colon withdrawl time was 36 minutes. Procedure: The patient was placed in the left lateral decubitis position and pre-procedure medications were administered. After a digital rectal examination of the ano-rectum, the video colonoscope was inserted into the rectum and advanced through the colon to the cecum. The colonoscope was slowly withdrawn in a retrograde panoramic fashion and the colon mucosa was carefully examined including a retroflexed view of the rectum. Findings and interventions are described below. Procedure Difficulty: Without difficulty Findings: Terminal Ileum: Not evaluated Cecum: A 10-12 mm sessile polyp - removed with a hot snare Ascending Colon: A 2 cms sessile polyp removed with a hot snare and polypectomy site was closed with a hemoclip. Polyp was retrieved with a Hernandez Net. A 2nd 10-12 mm sessile polyp removed with a hot snare Transverse Colon: Two 12 - 15 mm sessile polyps - removed with a hot snare Descending Colon: Normal Sigmoid Colon: Two 12- 15 mm sessile polyp - removed with a hot snare. A 2 cms sessile polyp - removed with hot snare and retrieved with a Hernandez Net Moderate diverticulosis Rectum: Normal Ano-rectum: Moderate internal hemorrhoids Colon preparation: Good after some irrigation Impression and Post Procedure Diagnosis: Colonoscopy Findings: Eight medium to large sized polyps removed Moderate diverticulosis seen in the sigmoid colon Moderate hemorrhoids on retroflexed exam. Plan: Await pathology results Patient has an appointment on 10/08/22 in the GI Clinic with Jessica Ruffin FNP-BC. Repeat Colonoscopy interval based on path results - in 1 year if polyps are adenomatous and 10 years if polyps are hyperplastic. Above findings were reviewed with the patient and colon polyps and diverticulosis handouts were given in the discharge area
[2022-09-24 13:53] VITALS: BP 132/83; PULSE 94; RESP 16; TEMP 36.2; O2SAT 97
[2022-09-24 14:08] VITALS: BP 131/87; PULSE 92; RESP 20; TEMP 36.3; O2SAT 97
== END 2022-09-24 14:50 | disposition home or self-care (01) ==
PROVIDERS: PCP Internal Medicine; Visit Provider Internal Medicine Gastroenterology
PROC: 0DJD8ZZ Inspection of Lower Intestinal Tract, Via Natural or Artificial Opening Endoscopic (ICD-10-PCS; CPT 45378; principal; 2022-09-24 13:40)
DX: R19.5 Other fecal abnormalities (principal); D12.0 Benign neoplasm of cecum; D12.2 Benign neoplasm of ascending colon; D12.3 Benign neoplasm of transverse colon; D12.5 Benign neoplasm of sigmoid colon; K64.8 Other hemorrhoids; K57.30 Diverticulosis of large intestine without perforation or abscess without bleeding; I95.9 Hypotension, unspecified; R13.10 Dysphagia, unspecified; D50.9 Iron deficiency anemia, unspecified; J45.909 Unspecified asthma, uncomplicated; E78.00 Pure hypercholesterolemia, unspecified; E55.9 Vitamin D deficiency, unspecified; E53.8 Deficiency of other specified B group vitamins; F33.9 Major depressive disorder, recurrent, unspecified; K21.9 Gastro-esophageal reflux disease without esophagitis; M79.7 Fibromyalgia; Z90.49 Acquired absence of other specified parts of digestive tract; Z79.899 Other long term (current) drug therapy
CPT/HCPCS: 45385; 88305

== ENCOUNTER 2022-10-05 13:17 | Outpatient (AMB) | payer OTHER, SELFPAY ==
[2022-10-05 13:19] VITALS: BP 132/80; BMI 27.4
--- NOTE | 2022-10-05 13:19 | A.OFFPC_ITS ---
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: No Accompanied by: Self / Same As Patient Allergies No Known Allergies Allergy (Verified 10/05/22 13:30) Medication List - Last Reconciled 10/05/22 by Susannah Manzo MD albuterol sulfate 90 mcg/actuation (Ventolin HFA) 2 puffs PO Q4-6H PRN amitriptyline 150 mg (1.5 x 100 mg) PO BEDTIME 90 days blood pressure monitor As directed cholecalciferol (vitamin D3) 25 mcg PO DAILY 90 days clonazepam 0.5 mg PO TID cyanocobalamin (vitamin B-12) (Vitamin B-12) 1,000 mcg PO DAILY folic acid 1 mg PO DAILY 90 days gabapentin 300 mg PO TID PRN omeprazole 20 mg PO DAILY 90 days trazodone 150 mg PO BEDTIME Tobacco use date assessed: 05/27/22 Dental Screening Dental Screen Date: 10/05/22 Did you have a dental visit in the last 12 months?: No Did you have a dental problem in the last 6 months where you did not have access to dental care?: No Was dental information given to patient?: No (patient has dentures) HPI HPI Comments History of Present Illness Details This is a 57-year-old female with mild recurrent major depression, GERD, asthma and fibromyalgia that comes today complaining of palpitations that started few weeks ago and happens at rest or on exertion. I will order Holter monitor. Depression stable with amitriptyline. GERD stable with PPIs. She has rescue inhaler once a month. Fibromyalgia well controlled with gabapentin. Had colonoscopy this month showing few tubular adenoma and tubulovillous adenoma and colonoscopy will be repeated in a year. [facility] Medical History (Updated 10/05/22 @ 13:39 by Susannah Manzo MD) Allergic rhinitis Asthma Asthma B12 deficiency Depression with anxiety Fibromyalgia GERD (gastroesophageal reflux disease) Hypovitaminosis D Insomnia Lumbar pain Microcytic anemia Mild recurrent major depression Normocytic anemia Osteoarthritis of right knee Overweight Pelvic pain Pure hypercholesterolemia Right knee pain Surgical History History of esophagogastroduodenoscopy (EGD) History of total right hip replacement Hx laparoscopic cholecystectomy Hx of colonoscopy Previous section Family History Mother Hypertension Breast cancer, Onset Age: 73 Father No problems noted. Social History Household Members: Spouse and Children Housing: House Alcohol intake: never Patient Tobacco Use Status: Never used Tobacco e-Cigarette/Vaping Use: Never Used Second Hand Smoke Exposure: No service: No Current occupational status: disabled Sexual orientation: Straight/Heterosexual Gender identity: Female Cognitive needs: No Hearing needs: No Vision needs: Yes (reading glasses) Female Reproductive History Menstrual Age of Menarche: 15 Questionnaire Thrive Questionnaire Date Thrive assessed: 05/27/22 JOSE-7 AMB Questionnaire JOSE-7 Date JOSE - 7 assessed: 05/27/22 Source: Developed by Drs. Abiodun Yates, Adri Schmitt, Ethan Medina and colleagues, with an educational javier from [employer]. Review of Systems Const All systems reviewed & are unremarkable except as noted in HPI and below Eyes Reports no additional complaints, Denies change in vision and Denies other visual disturbances Card Denies chest pain at rest, Denies chest pain with activity, Reports rapid heart rate, Denies edema, Denies irregular heart rhythm, Denies claudication, Denies dyspnea, Denies dyspnea on exertion, Denies orthopnea, Denies paroxysmal noctu rnal dyspnea and Denies slow heart rate Resp Denies cough, Denies dyspnea and Denies dyspnea on exertion GI Denies abdominal pain, Denies change in bowel habits, Denies excessive flatus, Denies nausea and Denies vomiting Denies urinary incontinence, Denies urinary hesitancy and Denies urinary urgency Musc Denies abnormal gait, Reports back pain, Denies atrophy, Denies deformity, Reports arthralgias and Denies limited range of motion Skin/Breast Denies bleeding lesions, Denies changing lesions and Denies rash Neuro Denies abnormal gait and Denies lack of coordination Physical exam (Primary Care) Vital Signs: Last Vital Signs BP 132/80 10/05/22 13:19 BMI result Body Mass Index 27.4 Tobacco/Smoking Status: Tobacco use Status Tobacco use date assessed 05/27/22 10/05/22 13:26 Patient Tobacco Use Status Never used Tobacco 10/05/22 13:26 e-Cigarette/Vaping Use Never Used 10/05/22 13:26 Thrive Assessment: Date of Thrive Assessment Date Thrive assessed 05/27/22 10/05/22 13:26 Eyes General: appearance normal, both eyes and all related structures Eyelids: Yes eyelids normal Conjunctivae: conjunctivae normal Neck Neck: Yes normal visual inspection and Yes supple Resp Effort & Inspection: normal respiratory effort Auscultation: clear to auscultation bilaterally Cardio Jugular venous distension: no JVD Rate: regular rate Rhythm: regular rhythm Heart sounds: S1 normal heart sound present and S2 normal heart sound present Extrem General: Yes full ROM Assessment and Plan Assessment & Plan (1) Mild recurrent major depression: Code(s): F33.0 - Major depressive disorder, recurrent, mild Plan: Continue amitriptyline. (2) GERD (gastroesophageal reflux disease): Code(s): K21.9 - Gastro-esophageal reflux disease without esophagitis Qualifiers: Esophagitis presence: esophagitis presence not specified Qualified Code(s): K21.9 - Gastro-esophageal reflux disease without esophagitis Plan: Continue PPIs. (3) Fibromyalgia: Code(s): M79.7 - Fibromyalgia Plan: Continue gabapentin. (4) Asthma: Comment: BRONCHIAL ASTHMA, MILD, INTERMITTENT. CONTROLLED WITH CURRENT REGIMEN. Code(s): J45.909 - Unspecified asthma, uncomplicated Plan: Use rescue inhaler as needed (5) Palpitation: Code(s): R00.2 - Palpitations Plan: Holter monitor ordered Orders: Orders Vitamin B12 and Folate 5 Months E53.8 - Deficiency of other specified B group vitamins Comprehensive [place]. Panel Fast 5 Months M54.50 - Low back pain, unspecified IRON PROFILE 5 Months D64.9 - Anemia, unspecified Lipid Panel 5 Months E78.5 - Hyperlipidemia, unspecified Vitamin D 25-OH Total 5 Months E55.9 - Vitamin D deficiency, unspecified Complete Blood Count Auto Diff 5 Months D64.9 - Anemia, unspecified ECG holter monitor 48 hour Today R00.2 - Palpitations Coding Level of Care Code Est Pt Level 4 (69585) Diagnoses Mild recurrent major depression F33.0 GERD (gastroesophageal reflux disease) K21.9 Esophagitis presence: esophagitis presence not specified Fibromyalgia M79.7 Asthma J45.909 Palpitation R00.2 Time Spent (min) 22
== END 2022-10-05 13:40 | disposition home or self-care (01) ==
PROVIDERS: PCP Internal Medicine; Visit Provider Internal Medicine
DX: F33.0 Major depressive disorder, recurrent, mild (principal); K21.9 Gastro-esophageal reflux disease without esophagitis; M79.7 Fibromyalgia; J45.909 Unspecified asthma, uncomplicated; R00.2 Palpitations
CPT/HCPCS: 99214

== ENCOUNTER 2022-10-08 13:49 | Outpatient (AMB) | payer OTHER, SELFPAY ==
--- NOTE | 2022-10-08 13:55 | A.OFFVIS_ITS ---
Intake Vital Signs 10/08/22 13:57 Height 5 ft 1 in Weight 146 lb BMI 27.6 BP 124/74 Blood Pressure Location Lt brachial Position Sitting Pulse 72 Intake Visit Reasons: S/p colon-venessa Intake Note: Patient follow up for Colonoscopy results. Patient cc: acid reflex and some dysphagia. Denies any other GI issues. 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 Discussed with patient avoiding dietary triggers in late night snacking. Staying upright for minimal 3 hours after meals discussed with patient Helicobacter pylori (H. pylori) Will repeat H pylori testing. Screening and evaluation for female sterilization Discussed with patient what to expect before during and after the procedure. Patient just had upper endoscopy done and did well with anesthesia. Clear liquid diet and bowel prep discussed with patient. Patient will call the office if she will have any questions. I will see her after the procedure. Patient is agreeable to this plan and verbalizes understanding of instructions. She was given the opportunity to ask questions all questions answered. ? Thank you for allowing me to participate in her care Plan Orders Orders H pylori Ag Stool 07/30/22 K21.9 Medications New bisacodyl (Dulcolax (bisacodyl)) take 2 tabs at noon the day before your colonoscopy 10 mg (2 x 5 mg) PO ONCE 2 tabs 0RF 1 day Z12.11 polyethylene glycol 3350 (Miralax) As directed by gastroenterology department at [facility] 238 grams PO ONCE 238 grams 0RF Z12.11 bisacodyl (Dulcolax (bisacodyl)) take 2 tabs at noon the day before your colonoscopy 10 mg (2 x 5 mg) PO ONCE 2 tabs 0RF 1 day Z12.11 polyethylene glycol 3350 (Miralax) As directed by gastroenterology department at [facility] 238 grams PO ONCE 238 grams 0RF Z12.11 Changed From omeprazole 20 mg PO BID 90 days 180 caps 3RF To omeprazole 20 mg PO DAILY 90 caps 3RF 90 days Discontinued bismuth subsalicylate Discontinued Reason: Patient Completed Course 2 tabs PO QID 14 days 112 tabs 0RF A04.8 COLONOSCY Findings: Terminal Ileum: Not evaluated Cecum:? A 10-12 mm sessile polyp - removed with a hot snare Ascending Colon:? A 2 cms sessile polyp removed with a hot snare and polypectomy site was closed with a hemoclip.? Polyp was? retrieved with a Hernandez Net. ?A 2nd 10-12 mm sessile polyp removed with a hot snare Transverse Colon:? Two 12 - 15 mm sessile polyps -? removed with a hot snare Descending Colon:? Normal Sigmoid Colon:? Two 12- 15 mm sessile polyp - removed with a hot snare. A 2 cms sessile polyp -? removed with hot snare and retrieved with a Hernandez Net Moderate diverticulosis Rectum:? Normal Ano-rectum:? Moderate internal hemorrhoids Colon preparation:? Good? after some irrigation Impression and Post Procedure Diagnosis: Colonoscopy Findings: Eight medium to large sized polyps removed Moderate diverticulosis seen in the sigmoid colon Moderate hemorrhoids on retroflexed exam. Plan: Repeat Colonoscopy interval based on path results - in 1 year if polyps are adenomatous and 10 years if polyps are hyperplastic. PATOLOGY RESULTS: Diagnosis A.? Colon, ascending, polyps:? Tubular adenoma (one), completely excised; negative for high-grade dysplasia and carcinoma (endoscopic correlation necessary). B.? Colon, cecal polyp:? Tubular adenoma; negative for high-grade dysplasia and carcinoma.? C.? Colon, transverse, polyp:? Tubular adenoma (multiple pieces involved); negative for high-grade dysplasia and carcinoma.? D.? Colon, sigmoid, polyp:? Tubulovillous adenoma (one), completely excised, and tubular adenoma (one); negative for high-grade dysplasia and carcinoma (endoscopic correlation necessary). TODAY'S VISIT Patient is here today for follow-up and discussed colonoscopy results. Patient denies any ill effects from the prep, anesthesia or procedure itself. Above findings discussed with patient in detail. Patient is aware that she will need to repeat colonoscopy in 1 year, sooner if clinically necessary. Patient reports to have occasional reflux and some times trouble swallowing solid food without dyspepsia or odynophagia. Patient is able to swallow liquids. Patient had esophageal Jayna and was treated in May [facility] Medical History (Updated 10/28/22 @ 21:21 by Jessica Ruffin, [facility]) Allergic rhinitis Asthma Asthma B12 deficiency Depression with anxiety Diverticulosis Fibromyalgia GERD (gastroesophageal reflux disease) Hypovitaminosis D Insomnia Lumbar pain Microcytic anemia Mild recurrent major depression Normocytic anemia Osteoarthritis of right knee Overweight Pelvic pain Pure hypercholesterolemia Right knee pain Tubular adenoma Tubulovillous adenoma Surgical History History of esophagogastroduodenoscopy (EGD) History of total right hip replacement Hx laparoscopic cholecystectomy Hx of colonoscopy Previous section Family History Mother Hypertension Breast cancer, Onset Age: 73 Father No problems noted. Social History Household Members: Spouse and Children Housing: House Alcohol intake: never Patient Tobacco Use Status: Never used Tobacco e-Cigarette/Vaping Use: Never Used Second Hand Smoke Exposure: No service: No Current occupational status: disabled Sexual orientation: Straight/Heterosexual Gender identity: Female Cognitive needs: No Hearing needs: No Vision needs: Yes (reading glasses) Female Reproductive History Menstrual Age of Menarche: 15 Review of Systems Const Denies weight gain and Denies weight loss ENT Reports no additional complaints, Reports dysphagia (Occasional) and Denies odynophagia Card Reports no additional complaints Resp Reports no additional complaints GI Denies abdominal pain, Denies belching, Denies melena, Denies bloating, Denies change in bowel habits, Reports dysphagia (Occasional), Denies excessive flatus, Denies dyspepsia, Reports heartburn, Denies diarrhea, Denies loose stools, Denies nausea, Denies odynophagia and Denies vomiting Reports no additional complaints Musc Reports no additional complaints Neuro Reports no additional complaints Psych Reports no additional complaints Endo Reports no additional complaints Physical Exam Vital Signs: Last Vital Signs Pulse 72 10/08/22 13:57 BP 124/74 10/08/22 13:57 BMI result Body Mass Index 27.6 Const General: healthy appearing, no acute distress and well developed Nutritional Appearance: well nourished Orientation/consciousness: patient oriented x3 HEENT Head: Yes normal to inspection, Yes normocephalic and Yes atraumatic Face and sinus: Yes normal facial exam Mouth: Normal oral and palatal mucosa present Throat: Yes posterior oropharynx normal, Yes tonsils normal and Yes uvula midline Eyes General: appearance normal, both eyes and all related structures Neck Neck: Yes normal visual inspection, Yes full ROM and Yes trachea midline Thyroid: Thyroid normal Resp Effort & Inspection: normal respiratory effort, able to speak in complete sentences, no tracheal deviation and symmetric chest movement Auscultation: clear to auscultation bilaterally Cardio Rate: regular rate Heart sounds: S1 normal heart sound present and S2 normal heart sound present GI Inspection: Yes normal to inspection and No distended Palpation (GI): Soft to palpation, not firm, nontender and No hepatosplenomegaly present Auscultation: normal bowel sounds General: Yes no CVA tenderness Back/Spine/Pelvis Back: no CVA tenderness Skin General skin exam: elasticity normal, turgor normal and dry skin Neuro General: patient oriented x3 Psych Appearance: grossly normal Mental Status: mental status grossly normal Speech and movement: Normal speech and movement present Affect: normal affect Assessment & Plan Assessment & Plan (1) GERD (gastroesophageal reflux disease): Code(s): K21.9 - Gastro-esophageal reflux disease without esophagitis Qualifiers: Esophagitis presence: esophagitis presence not specified Qualified Code(s): K21.9 - Gastro-esophageal reflux disease without esophagitis Plan: Patient continued to have acid reflux and occasional dysphagia. Patient was encouraged to avoid dietary triggers. Continue taking omeprazole every morning. Will evaluate treatment and next time patient will return to the office if she continues to have dysphagia she will go for barium swallow. (2) Diverticulosis: Code(s): K57.90 - Diverticulosis of intestine, part unspecified, without perforation or abscess without bleeding Plan: High-fiber diet discussed with patient list of food high in fiber given to patient. (3) Tubular adenoma: Code(s): D36.9 - Benign neoplasm, unspecified site (4) Tubulovillous adenoma: Code(s): D36.9 - Benign neoplasm, unspecified site Plan: Tubulovillous and tubular adenoma found on colonoscopy without high-grade dysplasia or carcinoma. Patient will return for colorectal screening in 1 year, sooner if clinically necessary. Patient will follow-up with us in 4 months, rosales ner on as needed basis. She is agreeable to this plan and verbalizes understanding of instructions. She was given the opportunity to ask questions and all questions answered Coding Level of Care Code Est Pt Level 4 (10216) Diagnoses GERD (gastroesophageal reflux disease) K21.9 Esophagitis presence: esophagitis presence not specified Diverticulosis K57.90 Tubular adenoma D36.9 Tubulovillous adenoma D36.9 Time Spent (min) 35 Comment 20 minutes spent with patient and additional 15 minutes spent reviewing her records
[2022-10-08 13:57] VITALS: BP 124/74; PULSE 72; BMI 27.6
== END 2022-10-08 14:40 | disposition home or self-care (01) ==
PROVIDERS: PCP Internal Medicine; Visit Provider Nurse Practitioner Family
DX: K21.9 Gastro-esophageal reflux disease without esophagitis (principal); K57.90 Diverticulosis of intestine, part unspecified, without perforation or abscess without bleeding; D36.9 Benign neoplasm, unspecified site
CPT/HCPCS: 99214

== ENCOUNTER → 2022-10-08 13:49 | Outpatient (BNVA) | payer OTHER, SELFPAY | PROVIDERS: PCP Internal Medicine; Visit Provider Nurse Practitioner Family | DX: K21.9 Gastro-esophageal reflux disease without esophagitis (principal); K57.90 Diverticulosis of intestine, part unspecified, without perforation or abscess without bleeding; Z86.010 Personal history of colon polyps; Z79.899 Other long term (current) drug therapy | CPT/HCPCS: 99212 ==

== ENCOUNTER → 2022-11-01 13:25 | Outpatient (REF) | payer OTHER, SELFPAY ==
--- NOTE | 2022-11-01 13:29 | HM_ITS ---
Conclusion: 1. Patient was monitored for total period of 1 day and 23 hours 2. Baseline was normal sinus rhythm with average heart of 90 beats per minute 3. No significant pauses noted 4. Occasional PVCs noted 5. No patient reported events MTDD
== END ==
LOC: HO.CARD 13:25
PROVIDERS: PCP Internal Medicine; Visit Provider Internal Medicine
DX: R00.2 Palpitations (principal)
CPT/HCPCS: 93225

== ENCOUNTER → 2022-11-01 13:29 | Outpatient (BNV) | payer OTHER, SELFPAY | PROVIDERS: PCP Internal Medicine; Visit Provider Internal Medicine Cardiovascular Disease | DX: I49.3 Ventricular premature depolarization (principal) | CPT/HCPCS: 93227 ==

== ENCOUNTER 2022-12-03 15:12 | Outpatient (REF) | payer OTHER, SELFPAY | END 2022-12-03 15:13 | disposition home or self-care (01) | LOC: HO.MAMMO 15:12 | PROVIDERS: PCP Internal Medicine; Visit Provider Internal Medicine | DX: Z12.31 Encounter for screening mammogram for malignant neoplasm of breast (principal) | CPT/HCPCS: 77063; 77067 ==

== ENCOUNTER → 2022-12-03 16:30 | Outpatient (BNV) | payer OTHER, SELFPAY | PROVIDERS: PCP Internal Medicine; Visit Provider Radiology Diagnostic Radiology | DX: Z12.31 Encounter for screening mammogram for malignant neoplasm of breast (principal) | CPT/HCPCS: 77063; 77067 ==

== ENCOUNTER 2022-12-23 13:26 | Outpatient (AMB) | payer OTHER, SELFPAY ==
--- NOTE | 2022-12-23 13:28 | MHC.OFFVIS ---
Intake Vital Signs 12/23/22 13:29 Height 5 ft 1 in Weight 147 lb BMI 27.8 BP 110/72 Blood Pressure Location Lt brachial Position Sitting Pulse 95 Pulse Source Pulse Oximeter Pulse Oximetry (%) 97 Oxygen Delivery Method Room Air Intake Visit Reasons: Asthma Intake Note: pt is here for follow up and states she feels good. Detonator Maker Required: No Allergies No Known Allergies Allergy (Verified 12/23/22 13:44) Medication List - Last Reconciled 12/23/22 by Ender Bae MD albuterol sulfate 90 mcg/actuation (Ventolin HFA) 2 puffs PO Q4-6H PRN amitriptyline 150 mg (1.5 x 100 mg) PO BEDTIME 90 days blood pressure monitor As directed cholecalciferol (vitamin D3) 25 mcg PO DAILY 90 days clonazepam 0.5 mg PO TID cyanocobalamin (vitamin B-12) (Vitamin B-12) 1,000 mcg PO DAILY famotidine (Pepcid) 20 mg PO BEDTIME PRN folic acid 1 mg PO DAILY 90 days gabapentin 300 mg PO TID PRN omeprazole 20 mg PO DAILY 90 days trazodone 150 mg PO BEDTIME 90 days Do you need a note to return to daycare/school/sports/work: No HPI Asthma HPI Details Stephanie comes after 6 months for follow-up for bronchial asthma. She has been doing well except for some cough and congestion in the morning hours. She uses albuterol 1 or 2 puffs in the morning and then for rest of the day her lungs are okay. Has stop using QVAR because each time she used it it was causing more cough. She can go around at. her normal pace without getting short of breath She has not had any serious respiratory infections. She already got flu vaccine and COVID vaccine this morning. She is nonsmoker. [facility] Medical History Tubulovillous adenoma Tubular adenoma Diverticulosis Normocytic anemia Asthma Mild recurrent major depression Insomnia Pure hypercholesterolemia Hypovitaminosis D Osteoarthritis of right knee B12 deficiency Allergic rhinitis Right knee pain Lumbar pain Pelvic pain Overweight Microcytic anemia Depression with anxiety Fibromyalgia GERD (gastroesophageal reflux disease) Asthma Surgical History History of esophagogastroduodenoscopy (EGD) Hx of colonoscopy History of total right hip replacement Hx laparoscopic cholecystectomy Previous section Family History Mother Hypertension Breast cancer, Onset Age: 73 Father No problems noted. Social History Household Members: Spouse and Children Housing: House Alcohol intake: never Patient Tobacco Use Status: Never used Tobacco e-Cigarette/Vaping Use: Never Used Second Hand Smoke Exposure: No service: No Current occupational status: disabled Sexual orientation: Straight/Heterosexual Gender identity: Female Cognitive needs: No Hearing needs: No Vision needs: Yes (reading glasses) Female Reproductive History Menstrual Age of Menarche: 15 Review of Systems Const All systems reviewed & are unremarkable except as noted in HPI and below Reports headache(s) (MILD OCCASIONAL ) Eyes Reports no additional complaints ENT Reports headache(s) (MILD OCCASIONAL ) and Reports nasal congestion (MILD OFF AND ON ) Card Denies chest pain, Denies irregular heart rhythm and Denies leg edema Resp Reports as per HPI GI Denies abdominal pain and Reports heartburn (CONTROLLED WITH MED ) Musc Reports back pain and Reports arthralgias (FIBROMYALGIA ) Skin/Breast Reports system reviewed and no additional complaints, except as documented Neuro Reports headache(s) (MILD OCCASIONAL ) Psych Reports depression (CONTROLLED ) Physical Exam Vital Signs: Last Vital Signs Pulse 95 12/23/22 13:29 BP 110/72 12/23/22 13:29 Pulse Ox 97 12/23/22 13:29 Oxygen Delivery Method Room Air 12/23/22 13:29 BMI result Body Mass Index 27.8 Const General: healthy appearing, comfortable, no acute distress, alert and awake Orientation/consciousness: patient oriented x3 HEENT Head: Yes normal to inspection General nose exam: No nasal polyps present and No nasal discharge present Face and sinus: Yes sinuses nontender Mouth: oropharynx normal Throat: Yes posterior oropharynx normal Eyes General: appearance normal, both eyes and all related structures Neck Neck: Yes normal visual inspection, Yes no lymphadenopathy, Yes trachea midline and Yes no JVD Thyroid: Thyroid normal Chest Chest palpation & inspection: normal inspection of the chest, normal palpation of entire chest wall and no tenderness Resp Other: Percussion note resonant, both lungs are very clear, no wheezes rhonchi or crepitations are heard. Cardio Palpation: normal PMI Rate: regular rate Rhythm: regular rhythm Heart sounds: no gallops and no murmurs Peripheral pulses: Peripheral pulses 2+ throughout GI Palpation (GI): Soft to palpation, nontender, No hepatosplenomegaly present and no masses Auscultation: normal bowel sounds Back/Spine/Pelvis Thoracic/Lumbar Spine: thoracic and lumbar spine normal to inspection Skin General skin exam: no rashes or lesions noted Neuro General: patient oriented x3 and no focal motor deficits Cranial nerves: Yes CN's II-XII intact bilaterally Extrem General: Yes normal to inspection, Yes no clubbing, cyanosis or edema and Yes no calf tenderness Psych Appearance: grossly normal and well kempt Speech and movement: Normal speech and movement present Assessment & Plan Assessment & Plan (1) Asthma: Comment: Chronic bronchial asthma, remains well controlled. [place] : Use ProAir 2 puffs Q 4-6 hours only p.r.n. No need to use QVAR. REVISIT ONCE A YEAR AND NEEDED Code(s): J45.909 - Unspecified asthma, uncomplicated (2) Allergic rhinitis: Comment: She has chronic allergic rhinitis, it is mild, Advised to use Flonase 2 spray in each nostril but only p.r.n. Code(s): J30.9 - Allergic rhinitis, unspecified Coding Level of Care Code Est Pt Level 3 (02948) Diagnoses Asthma J45.909 Allergic rhinitis J30.9
[2022-12-23 13:29] VITALS: BP 110/72; PULSE 95; O2SAT 97; BMI 27.8
== END 2022-12-23 13:44 | disposition home or self-care (01) ==
PROVIDERS: PCP Internal Medicine; Visit Provider Internal Medicine
DX: J45.909 Unspecified asthma, uncomplicated (principal); J30.9 Allergic rhinitis, unspecified
CPT/HCPCS: 99213

== ENCOUNTER → 2022-12-23 13:26 | Outpatient (BNVA) | payer OTHER, SELFPAY | PROVIDERS: PCP Internal Medicine; Visit Provider Internal Medicine | DX: J45.909 Unspecified asthma, uncomplicated (principal) | CPT/HCPCS: 99212 ==

== ENCOUNTER 2023-05-25 13:05 | Outpatient (REF) | payer OTHER, SELFPAY ==
--- NOTE | ~2023-05-25 | XR_ITS ---
EXAMINATION: XR SOFT TISSUE NECK CLINICAL INDICATION: Enlarged lymph nodes, unspecified COMPARISON: None available. TECHNIQUE: 2 views of the soft tissue neck were obtained. FINDINGS: The patient is edentulous. Soft tissue films of the neck demonstrate a normal larynx, pharynx and upper trachea. No soft tissue swelling or opaque foreign body is demonstrated. There is straightening of the usual cervical lordosis which can be seen with muscle spasm or be due to patient positioning. XR/XR soft tissue neck IMPRESSION: Straightening of the usual cervical lordosis which can be seen with muscle spasm or be due to patient positioning. If there is clinical concern regarding enlarged lymph nodes, CT scan of the neck should be considered for further evaluation.
== END 2023-05-25 13:06 | disposition home or self-care (01) ==
LOC: HO.XRAY 13:05
PROVIDERS: PCP Internal Medicine; Visit Provider Nurse Practitioner Family
DX: R59.9 Enlarged lymph nodes, unspecified (principal); K21.9 Gastro-esophageal reflux disease without esophagitis; K57.90 Diverticulosis of intestine, part unspecified, without perforation or abscess without bleeding; R13.12 Dysphagia, oropharyngeal phase
CPT/HCPCS: 70360; 99212

== ENCOUNTER 2023-05-25 13:05 | Outpatient (AMB) | payer OTHER, SELFPAY ==
--- NOTE | 2023-05-25 13:25 | A.OFFVIS_ITS ---
Intake Vital Signs 05/25/23 13:27 Height 5 ft 1 in Weight 148 lb 9.465 oz BMI 28.1 BP 140/79 H Blood Pressure Location Lt brachial Position Sitting Pulse 87 Intake Visit Reasons: follow up r/s from 02/14 Intake Note: Patient presents in follow up of epigastric pain. CC: Pt c/o epigastric pain, and mild heartburn but states medications helps with symptoms. Denies other GI symptom today. Allergies No Known Allergies Allergy (Verified 05/25/23 13:30) HPI follow up r/s from 02/14 HPI Details LAST VISIT GERD (gastroesophageal reflux disease) Patient continued to have acid reflux and occasional dysphagia. Patient was encouraged to avoid dietary triggers. Continue taking omeprazole every morning. Will evaluate treatment and next time patient will return to the office if she continues to have dysphagia she will go for barium swallow. Diverticulosis High-fiber diet discussed with patient list of food high in fiber given to patient. Tubular adenoma Tubulovillous adenoma Tubulovillous and tubular adenoma found on colonoscopy without high-grade dysplasia or carcinoma. Patient will return for colorectal screening in 1 year, sooner if clinically necessary. Patient will follow-up with us in 4 months, sooner on as needed basis. She is agreeable to this plan and verbalizes understanding of instructions. She was given the opportunity to ask questions and all questions answered TODAY'S VISIT: Patient is here today for follow-up. Patient reports that she has been feeling ill in the last few days. Patient reports postnasal drip sore throat. Patient states that her was sick with flu. Patient tested herself and she was negative for both flu and COVID. Patient reports right sided lymph node swelling and pain when she touches. Patient also reports trouble swallowing due to sore throat. Patient however reports that she takes omeprazole in the morning and famotidine at bedtime and for the most part she has been feeling well. Patient denies any nausea or vomiting. Reports occasional cramping in the left lower abdomen. Patient reports that she is moving her bowels without any issues. Occasional epigastric discomfort depending on what she eats. Patient denies melena, hematochezia, unintentional weight loss or ribbon like stools. Patient denies any fever or chills. Denies any other GI concerning symptoms [facility] Medical History Tubulovillous adenoma Tubular adenoma Diverticulosis Normocytic anemia Asthma Mild recurrent major depression Insomnia Pure hypercholesterolemia Hypovitaminosis D Osteoarthritis of right knee B12 deficiency Allergic rhinitis Right knee pain Lumbar pain Pelvic pain Overweight Microcytic anemia Depression with anxiety Fibromyalgia GERD (gastroesophageal reflux disease) Asthma Surgical History History of esophagogastroduodenoscopy (EGD) Hx of colonoscopy History of total right hip replacement Hx laparoscopic cholecystectomy Previous section Family History Mother Hypertension Breast cancer, Onset Age: 73 Father No problems noted. Social History Household Members: Spouse and Children Housing: House Alcohol intake: never Patient Tobacco Use Status: Never used Tobacco e-Cigarette/Vaping Use: Never Used Second Hand Smoke Exposure: No service: No Current occupational status: disabled Sexual orientation: Straight/Heterosexual Gender identity: Female Cognitive needs: No Hearing needs: No Vision needs: Yes (reading glasses) Female Reproductive History Menstrual Age of Menarche: 15 Review of Systems Const Denies weight gain and Denies weight loss ENT Reports no additional complaints, Reports dysphagia (occasional) and Denies odynophagia Card Reports no additional complaints Resp Reports no additional complaints GI Denies abdominal pain, Denies belching, Denies melena, Denies bloating, Denies change in bowel habits, Reports dysphagia (occasional), Denies excessive flatus, Denies dyspepsia, Denies heartburn, Denies diarrhea, Denies loose stools, Denies nausea, Denies odynophagia and Denies vomiting Reports no additional complaints Musc Reports no additional complaints Neuro Reports no additional complaints Psych Reports no additional complaints Endo Reports no additional complaints Physical Exam Vital Signs: Last Vital Signs Pulse 87 05/25/23 13:27 BP 140/79 H 05/25/23 13:27 BMI result Body Mass Index 28.1 Const General: healthy appearing, no acute distress and well developed Nutritional Appearance: well nourished Orientation/consciousness: patient oriented x3 HEENT Head: Yes normal to inspection Throat: Yes uvula midline, Yes abnormal tonsil, Yes postnasal drainage and No cobblestoning Neck Neck: Yes no lymphadenopathy (Right cervical) and No tracheal deviation Resp Effort & Inspection: normal respiratory effort, able to speak in complete sentences, no tracheal deviation and symmetric chest movement Auscultation: clear to auscultation bilaterally Cardio Rate: regular rate GI Inspection: Yes normal to inspection and No distended Palpation (GI): Soft to palpation, not firm, nontender and No hepatosplenomegaly present Auscultation: normal bowel sounds General: Yes no CVA tenderness Back/Spine/Pelvis Back: no CVA tenderness Skin General skin exam: elasticity normal, turgor normal and dry skin Neuro General: patient oriented x3 Psych Appearance: grossly normal Mental Status: mental status grossly normal Assessment & Plan Assessment & Plan (1) Lymph node enlargement: Code(s): R59.9 - Enlarged lymph nodes, unspecified (2) GERD (gastroesophageal reflux disease): Code(s): K21.9 - Gastro-esophageal reflux disease without esophagitis Qualifiers: Esophagitis presence: esophagitis presence not specified Qualified Code(s): K21.9 - Gastro-esophageal reflux disease without esophagitis (3) Diverticulosis: Code(s): K57.90 - Diverticulosis of intestine, part unspecified, without perforation or abscess without bleeding (4) Dysphagia: Code(s): R13.10 - Dysphagia, unspecified Qualifiers: Dysphagia type: oropharyngeal phase Qualified Code(s): R13.12 - Dysphagia, oropharyngeal phase Plan Right cervical lymph node enlargement. Patient will be sent for x-ray of her neck. Patient was encouraged to follow-up with PCP regarding strep test. Normal pharynx except for slightly in large tonsils. Patient was encouraged to eat small meals and more often. Patient will stay up for minimum 3 hours after meals. Avoid dietary triggers. Continue omeprazole in the morning and famotidine at bedtime. Patient will call the office if she will continue to have symptoms. Patient will return in 3 months we can discuss her going for colonoscopy. I will send patient for upper endoscopy as well. Patient is agreeable to this plan and verbalizes understanding of instructions. She was given the opportunity to ask questions and all questions answered thank you for allowing me to participate in her care Orders: Orders XR soft tissue neck 05/25/23 R59.9 - Enlarged lymph nodes, unspecified Medications: Refilled famotidine (Pepcid) 20 mg PO BEDTIME PRN 30 tabs 3RF acid reflux K21.9 - Gastro-esophageal reflux disease without esophagitis omeprazole 20 mg PO DAILY 90 days 90 caps 3RF Coding Level of Care Code Est Pt Level 3 (18072) Diagnoses Lymph node enlargement R59.9 Gastroesophageal reflux disease, unspecified whether esophagitis present K21.9 Esophagitis presence: esophagitis presence not specified Diverticulosis K57.90 Oropharyngeal dysphagia R13.12 Dysphagia type: oropharyngeal phase Time Spent (min) 30 Comment 20 minutes spent with patient and additional 10 minutes spent reviewing her records
[2023-05-25 13:27] VITALS: BP 140/79; PULSE 87; BMI 28.1
== END 2023-05-25 13:48 | disposition home or self-care (01) ==
PROVIDERS: PCP Internal Medicine; Visit Provider Nurse Practitioner Family
DX: R59.9 Enlarged lymph nodes, unspecified (principal); K21.9 Gastro-esophageal reflux disease without esophagitis; K57.90 Diverticulosis of intestine, part unspecified, without perforation or abscess without bleeding; R13.12 Dysphagia, oropharyngeal phase
CPT/HCPCS: 99213

== ENCOUNTER 2023-05-30 12:30 | Outpatient (AMB) | payer OTHER, SELFPAY ==
--- NOTE | 2023-05-30 12:40 | A.OFFPC_ITS ---
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 Accompanied by: Self / Same As Patient Allergies No Known Allergies Allergy (Verified 05/30/23 12:57) Medication List - Last Reconciled 05/30/23 by Susannah Manzo MD albuterol sulfate 90 mcg/actuation (Ventolin HFA) 2 puffs PO Q4-6H PRN amitriptyline 150 mg (1.5 x 100 mg) PO BEDTIME 90 days blood pressure monitor As directed clonazepam 0.5 mg PO TID famotidine (Pepcid) 20 mg PO BEDTIME PRN gabapentin 300 mg PO TID PRN omeprazole 20 mg PO DAILY 90 days trazodone 150 mg PO BEDTIME 90 days Tobacco use date assessed: 05/30/23 Dental Screening Dental Screen Date: 05/30/23 Did you have a dental visit in the last 12 months?: Yes Did you have a dental problem in the last 6 months where you did not have access to dental care?: No Was dental information given to patient?: Patient has dentist HPI HPI Comments History of Present Illness Details This is a 58-year-old female with moderate major depression that comes for her physical exam. Has no suicidal thoughts and depression has worsened to family issues. Will work on it with same meds. Mammogram done 2022. Colonoscopy done 2022 showing tubulovillous adenoma. Pap smear done 2019 and has an appointment next month with OBGYN. No chest pain or shortness of breath.. [facility] Medical History (Updated 05/30/23 @ 13:14 by Susannah Manzo MD) Esophageal candidiasis Tubulovillous adenoma Tubular adenoma Diverticulosis Normocytic anemia Asthma Mild recurrent major depression Insomnia Pure hypercholesterolemia Hypovitaminosis D Osteoarthritis of right knee B12 deficiency Allergic rhinitis Right knee pain Lumbar pain Pelvic pain Overweight Microcytic anemia Depression with anxiety Fibromyalgia GERD (gastroesophageal reflux disease) Asthma Surgical History History of esophagogastroduodenoscopy (EGD) Hx of colonoscopy History of total right hip replacement Hx laparoscopic cholecystectomy Previous section Family History Mother Hypertension Breast cancer, Onset Age: 73 Father No problems noted. Social History Household Members: Spouse and Children Housing: House Alcohol intake: never Patient Tobacco Use Status: Never used Tobacco e-Cigarette/Vaping Use: Never Used Second Hand Smoke Exposure: No service: No Current occupational status: disabled Sexual orientation: Straight/Heterosexual Gender identity: Female Cognitive needs: No Hearing needs: No Vision needs: Yes (reading glasses) Female Reproductive History Menstrual Age of Menarche: 15 Questionnaire PHQ-9 Over the last 2 weeks, how often have you been bothered by any of the following problems? 1. Little interest or pleasure in doing things: nearly every day 2. Feeling down, depressed, or hopeless: more than half the days 3. Trouble falling or staying asleep, or sleeping too much: more than half the days 4. Feeling tired or having little energy: nearly every day 5. Poor appetite or overeating: more than half the days 6. Feeling bad about yourself - or that you are a failure or have let yourself or your family down: more than half the days 7. Trouble concentrating on things, such as reading the newspaper or watching television: several days 8. Moving or speaking so slowly that other people could have noticed. Or the opposite - being so fidgety or restless that you have been moving around a lot more than usual: not at all 9. Thoughts that you would be better off or of hurting yourself in some way: not at all Total score: 15 Depression Screening Interpretation: Positive (no suicidal thoughts) Depression Screening Follow-up: Existing condition and In treatment Depression Screening Done: Yes 32534 - PHQ-9 Billing: Yes Source: Developed by Drs. Abiodun Yates, Adri Schmitt, Ethan Medina and colleagues, with an educational javier from [employer]. Thrive Questionnaire Date Thrive assessed: 05/30/23 I am a: Patient What is your living situation today?: I have a steady place to live Within the past 12 months, did the food you bought not last and you didn't have the money to get more?: Never true Within the past 12 months, did you worry whether your food would run out before you got money to buy more?: Never true Do you have trouble paying for medicines?: No Do you have trouble getting transportation to medical appointments?: No Do you have trouble paying your heating and electricity bill?: No Do you have trouble taking care of your child, family member or friend?: No Do you have trouble with day-to-day activities such as bathing, preparing meals, shopping, managing finances, etc.?: No Are you currently unemployed and looking for a job?: No Are you interested in more education?: No Please select the resources that you would like help with: None Currently or been in a relationship where the following occur: no concerns reported THRIVE Score: 0 AUDIT C Alcohol Use Questionnaire (AUDIT-C) 1. How often do you have a drink containing alcohol?: Never Total Score: 0 JOSE-7 AMB Questionnaire JOSE-7 Date JOSE - 7 assessed: 05/30/23 Feeling nervous, anxious, or on edge: 2 = More than half the days Not being able to stop or control worryin = Several days Worrying too much about different things: 2 = More than half the days Trouble relaxin = More than half the days Being so restless that it is hard to sit still: 0 = Not at all Becoming easily annoyed or irritable: 1 = Several days Feeling afraid as if something awful might happen: 0 = Not at all Total JOSE-7 score (0-4 normal; 5-9 mild; 10-14 moderate; 15-21 severe): 8 Source: Developed by Drs. Abiodun Yates, Adri Schmitt, Ethan Medina and colleagues, with an educational javier from [employer]. JOSE-7 Assessment Billing JOSE-7 Assessment Tool: JOSE-7 Assessment 98027 Review of Systems Const All systems reviewed & are unremarkable except as noted in HPI and below Eyes Reports no additional complaints, Denies change in vision and Denies other visual disturbances Card Denies chest pain at rest, Denies chest pain with activity, Denies edema, Denies irregular heart rhythm, Denies claudication, Denies dyspnea, Denies dyspnea on exertion, Denies orthopnea, Denies paroxysmal nocturnal dyspnea and Denies slow heart rate Resp Denies cough, Denies dyspnea and Denies dyspnea on exertion GI Denies abdominal pain, Denies change in bowel habits, Denies excessive flatus, Denies nausea and Denies vomiting Denies urinary incontinence, Denies urinary hesitancy and Denies urinary urgency Musc Denies abnormal gait, Denies atrophy, Denies deformity and Denies limited range of motion Skin/Breast Denies bleeding lesions, Denies changing lesions and Denies rash Neuro Denies abnormal gait, Denies behavioral changes, Denies confusion and Denies lack of coordination Psych Denies behavioral changes and Denies confusion Physical exam (Primary Care) Vital Signs: Last Vital Signs BP 130/80 05/30/23 12:41 BMI result Body Mass Index 28.5 Tobacco/Smoking Status: Tobacco use Status Tobacco use date assessed 05/30/23 05/30/23 12:50 Patient Tobacco Use Status Never used Tobacco 05/30/23 12:50 e-Cigarette/Vaping Use Never Used 05/30/23 12:50 PHQ-9: PHQ-9 Score PHQ-9: Total score 15 05/30/23 12:50 Depression Screening Interpretation: Positive (no suicidal thoughts) Depression Screening Follow-up: Existing condition and In treatment Thrive Assessment: Date of Thrive Assessment Date Thrive assessed 05/30/23 05/30/23 12:50 Currently or been in a relationship where the following occur: no concerns reported Const General: No confusion Orientation/consciousness: patient oriented x3 and No confusion HENMT Head: Yes normal to inspection, Yes normocephalic and Yes atraumatic Ears: external ears normal Eyes General: appearance normal, both eyes and all related structures Eyelids: Yes eyelids normal Conjunctivae: conjunctivae normal Neck Neck: Yes normal visual inspection and Yes supple Resp Effort & Inspection: normal respiratory effort Auscultation: clear to auscultation bilaterally Cardio Jugular venous distension: no JVD Rate: regular rate Rhythm: regular rhythm Heart sounds: S1 normal heart sound present and S2 normal heart sound present GI Inspection: Yes normal to inspection Palpation (GI): Soft to palpation and nontender Auscultation: normal bowel sounds Skin General skin exam: no rashes or lesions noted Neuro General: patient oriented x3, no focal motor deficits and No confusion Extrem General: Yes full ROM Psych Appearance: grossly normal Assessment and Plan Assessment & Plan (1) Physical exam: Code(s): Z00.00 - Encounter for general adult medical examination without abnormal findings Plan: Repeat in a year. (2) Moderate major depression: Code(s): F32.1 - Major depressive disorder, single episode, moderate Plan: Continue amitriptyline. Orders: Orders Vitamin B12 and Folate Today E53.8 - Deficiency of other specified B group vitamins Complete Blood Count Auto Diff Today D64.9 - Anemia, unspecified Vitamin D 25-OH Total Today E55.9 - Vitamin D deficiency, unspecified IRON PROFILE Today D64.9 - Anemia, unspecified Lipid Panel Today Z00.00 - Encounter for general adult medical examination without abnormal findings Comprehensive [place]. Panel Fast Today Z00.00 - Encounter for general adult medical examination without abnormal findings ECG 12 lead EKG Today R00.2 - Palpitations Medications: New cephalexin 500 mg PO Q12H 14 tabs 0RF 7 days Coding Level of Care Code Est Pt Prev Care 40-64y(76480) Diagnoses Physical exam Z00.00 Moderate major depression F32.1 Additional Codes JOSE-7 Assessment Billing - JOSE-7 Assessment Tool: JOSE-7 Assessment 04652 ([id number]) Time Spent (min) 33
[2023-05-30 12:41] VITALS: BP 130/80; BMI 28.5
== END 2023-05-30 13:14 | disposition home or self-care (01) ==
PROVIDERS: PCP Internal Medicine; Visit Provider Internal Medicine
DX: Z00.00 Encounter for general adult medical examination without abnormal findings (principal); F32.1 Major depressive disorder, single episode, moderate
CPT/HCPCS: 99396

== ENCOUNTER 2023-07-08 08:33 | Outpatient (REF) | payer OTHER, SELFPAY ==
--- NOTE | 2023-07-08 08:38 | ECG_ITS ---
Test Reason : R00.2 PALPS Blood Pressure : / mmHG Vent. Rate : 085 BPM Atrial Rate : 085 BPM P-R Int : 166 ms QRS Dur : 090 ms QT Int : 386 ms P-R-T Axes : 074 043 063 degrees QTc Int : 459 ms Normal sinus rhythm Normal ECG When compared with ECG of 30-JUL-2021 15:38, No significant change was found Referred By: Susannah Manzo Electronically Signed By:LILI HULL
[2023-07-08 08:45] LABS: MANUAL DIFF FLAG NO
[2023-07-08 09:20] LABS: Basophils Absolute Auto 0.1 X10*3/uL (0.0-0.2); Basophils Percent Auto 0.8 % (0-2); Eosinophils Absolute Auto 0.2 X10*3/uL (0.0-0.4); Hemoglobin 11.8 g/dl (12.0-16.0); Imm Gran Abs Auto 0.03 X10*3/uL (0.00-0.03); Imm Gran Pct Auto 0.4 % (0.0-0.4); Lymphocytes Absolute Auto 2.7 X10*3/uL (1.2-4.9); Lymphocytes Percent Auto 32.1 % (20-40); Mean Corpuscular HGB Conc 31.1 g/dl (31.0-35.0); Mean Corpuscular Volume 90.3 fL (80.0-98.0); Mean Platelet Volume 10.6 fL (9.4-12.3); Monocytes Absolute Auto 0.6 X10*3/uL (0.1-1.2); Monocytes Percent Auto 6.4 % (2-11); Neutrophils Percent Auto 58.3 % (45-73); Platelet Count 326 X10*3/uL (160-400); Red Blood Count 4.21 X10*6/uL (4.20-5.50); Red Cell Distribution Width 14.5 % (11.0-16.0); White Blood Count 8.5 X10*3/uL (4.8-10.8)
[2023-07-08 10:10] LABS: Alanine Aminotransferase 16 U/L (0-31); Albumin Level 3.9 g/dL (3.5-5.0); Alkaline Phosphatase 124 U/L (39-117); Anion Gap 10 (12-20); Aspartate Amino Transferase 18 U/L (5-31); Bilirubin Total 0.3 mg/dL (0.0-1.0); Blood Urea Nitrogen 10 mg/dL (9-16); Carbon Dioxide 28 mmol/L (22-29); Chloride 106 mmol/L (96-108); Cholesterol 230 mg/dL (<200); Estimated Glomerular Filt Rate 55; Glucose Fasting 97 mg/dL (60-99); HDL Cholesterol 40 mg/dL (>40); Iron 48 mcg/dL (30-160); LDL Cholesterol Calculated 153 mg/dL (<100); Percent Iron Saturation 17 % (15-50); Potassium 3.4 mmol/L (3.3-5.1); Sodium 141 mmol/L (135-145); Total Iron Binding Capacity 290 mcg/dL (228-428); Total Protein 7.7 g/dL (6.5-8.0); Triglycerides 187 mg/dL (<150); Unsaturated Iron Binding 242 ug/dL
[2023-07-08 10:26] LABS: Vitamin D 25-OH Total 21.5 ng/mL (>30)
[2023-07-08 10:50] LABS: Folate 11.2 ng/mL (> or = 4.0); Vitamin B12 569 pg/mL (200-900)
== END 2023-07-08 08:34 | disposition home or self-care (01) ==
LOC: HO.LAB 08:33
PROVIDERS: PCP Internal Medicine; Visit Provider Internal Medicine
DX: Z00.00 Encounter for general adult medical examination without abnormal findings (principal); D64.9 Anemia, unspecified; E55.9 Vitamin D deficiency, unspecified; E53.8 Deficiency of other specified B group vitamins; M54.50 Low back pain, unspecified; R00.2 Palpitations; E78.5 Hyperlipidemia, unspecified
CPT/HCPCS: 36415; 80053; 80061; 82306; 82607; 82746; 83540; 85025; 93005

== ENCOUNTER → 2023-07-08 08:38 | Outpatient (BNV) | payer OTHER, SELFPAY | PROVIDERS: PCP Internal Medicine; Visit Provider Internal Medicine | DX: R00.2 Palpitations (principal) | CPT/HCPCS: 93010 ==

== ENCOUNTER 2023-08-30 11:32 | Outpatient (AMB) | payer OTHER, SELFPAY ==
--- NOTE | 2023-08-30 11:47 | A.OFFVIS_ITS ---
Vital Signs 08/30/23 11:54 Height 5 ft 1 in Weight 145 lb 8.081 oz BMI 27.5 BP 130/82 Blood Pressure Location Lt brachial Position Sitting Pulse 90 Pulse Source Pulse Oximeter Pulse Oximetry (%) 96 Oxygen Delivery Method Room Air Intake Visit Reasons: 6 month follow up Intake Note: Stephanie presents in office today for a scheduled 6 mos. FUV. CC; Pt reports that they are still experiencing the epigastic pain and GERD sx. Pt states that it has gotten slightly worse since their last visit. Pt is still taking all Rx'd medications as directed. Pt would also like to inquire regarding a possible egd s/p given their continued sx. 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 Patient will be sent for x-ray of her neck. Patient was encouraged to follow-up with PCP regarding strep test. Normal pharynx except for slightly in large tonsils. Patient was encouraged to eat small meals and more often. Patient will stay up for minimum 3 hours after meals. Avoid dietary triggers. Continue omeprazole in the morning and famotidine at bedtime. Patient will call the office if she will continue to have symptoms. Patient will return in 3 months we can discuss her going for colonoscopy. I will send patient for upper endoscopy as well. Patient is agreeable to this plan and verbalizes understanding of instructions. She was given the opportunity to ask questions and all questions answered ? thank you for allowing me to participate in her care Orders Orders XR soft tissue neck 05/25/23 R59.9 Medications Refilled famotidine (Pepcid) 20 mg PO BEDTIME PRN 30 tabs 3RF acid reflux K21.9 omeprazole 20 mg PO DAILY 90 days 90 caps 3RF TODAY'S VISIT: Patient is here today for follow-up. Patient has been taking famotidine at bedtime and omeprazole in the morning and she continues to have epigastric pain, acid reflux and dyspepsia. Patient denies any dysphagia or odynophagia, however patient does feel globus sensation like something is stuck in her throat. X-ray of soft tissue and neck done and no acute processes seen. Patient also reports that she has been going under lot of stress. Patient denies any nausea or vomiting. Denies any melena, hematochezia. Patient admits to postprandial ab dominal bloating. Patient is not following any particular diet, however she is avoiding lactose. [facility] Medical History Esophageal candidiasis Tubulovillous adenoma Tubular adenoma Diverticulosis Normocytic anemia Asthma Mild recurrent major depression Insomnia Pure hypercholesterolemia Hypovitaminosis D Osteoarthritis of right knee B12 deficiency Allergic rhinitis Right knee pain Lumbar pain Pelvic pain Overweight Microcytic anemia Depression with anxiety Fibromyalgia GERD (gastroesophageal reflux disease) Asthma Surgical History History of esophagogastroduodenoscopy (EGD) Hx of colonoscopy History of total right hip replacement Hx laparoscopic cholecystectomy Previous section Family History Mother Hypertension Breast cancer, Onset Age: 73 Father No problems noted. Social History Household Members: Spouse and Children Housing: House Alcohol intake: never Patient Tobacco Use Status: Never used Tobacco e-Cigarette/Vaping Use: Never Used Second Hand Smoke Exposure: No service: No Current occupational status: disabled Sexual orientation: Straight/Heterosexual Gender identity: Female Cognitive needs: No Hearing needs: No Vision needs: Yes (reading glasses) Female Reproductive History Menstrual Age of Menarche: 15 Review of Systems Const Denies weight gain and Denies weight loss ENT Reports no additional complaints, Denies dysphagia and Denies odynophagia Card Reports no additional complaints Resp Reports no additional complaints GI Reports abdominal pain, Denies belching, Denies melena, Reports bloating, Denies change in bowel habits, Reports constipation, Denies dysphagia, Denies excessive flatus, Reports dyspepsia, Reports heartburn, Denies diarrhea, Denies loose stools, Denies nausea, Denies odynophagia and Denies vomiting Reports no additional complaints Musc Reports no additional complaints Neuro Reports no additional complaints Psych Reports no additional complaints Endo Reports no additional complaints Physical Exam Vital Signs: Last Vital Signs Pulse 90 08/30/23 11:54 BP 130/82 08/30/23 11:54 Pulse Ox 96 08/30/23 11:54 Oxygen Delivery Method Room Air 08/30/23 11:54 BMI result Body Mass Index 27.5 Const General: healthy appearing, no acute distress and well developed Nutritional Appearance: well nourished Orientation/consciousness: patient oriented x3 Resp Effort & Inspection: normal respiratory effort, able to speak in complete sentences, no tracheal deviation and symmetric chest movement Auscultation: clear to auscultation bilaterally Cardio Rate: regular rate GI Inspection: Yes normal to inspection and No distended Palpation (GI): Soft to palpation, not firm, nontender and No hepatosplenomegaly present Auscultation: normal bowel sounds General: Yes no CVA tenderness Back/Spine/Pelvis Back: no CVA tenderness Skin General skin exam: elasticity normal, turgor normal and dry skin Neuro General: patient oriented x3 Psych Appearance: grossly normal Mental Status: mental status grossly normal Results Reviewed Results Reviewed: SOFT TISSUE AND NECK X-RAY FINDINGS: The patient is edentulous. Soft tissue films of the neck demonstrate a normal larynx, pharynx and upper trachea. No soft tissue swelling or opaque foreign body is demonstrated. There is straightening of the usual cervical lordosis which can be seen with muscle spasm or be due to patient positioning. XR/XR soft tissue neck IMPRESSION: Straightening of the usual cervical lordosis which can be seen with muscle spasm or be due to patient positioning. Assessment & Plan Assessment & Plan (1) Diverticulosis: Code(s): K57.90 - Diverticulosis of intestine, part unspecified, without perforation or abscess without bleeding Category: Medical (2) GERD (gastroesophageal reflux disease): Code(s): K21.9 - Gastro-esophageal reflux disease without esophagitis Category: Medical Qualifiers: Esophagitis presence: esophagitis presence not specified Qualified Code(s): K21.9 - Gastro-esophageal reflux disease without esophagitis (3) Dysphagia: Code(s): R13.10 - Dysphagia, unspecified Category: Medical Qualifiers: Dysphagia type: oropharyngeal phase Qualified Code(s): R13.12 - Dysphagia, oropharyngeal phase (4) Constipation: Code(s): K59.00 - Constipation, unspecified Qualifiers: Constipation type: slow transit constipation Qualified Code(s): K59.01 - Slow transit constipation Plan Patient continues to have epigastric pain postprandially some acid reflux and feeling like things are getting stuck in her throat. Patient feels like omeprazole or famotidine are not helpful. Will change to pantoprazole in the morning and sucralfate at bedtime. Patient was encouraged to avoid dietary triggers and late night snacking. Staying upright for minimum 3 hours after meals discussed with patient. Patient also admits to having trouble moving her bowels not always feeling like she is able to empty them completely. Patient will start taking senna daily. Increase fluid intake and activity to promote better bowel motility. Patient will return in 2-3 months, sooner on as needed basis. She is agreeable to this plan and verbalizes understanding of instructions. She was given the opportunity to ask questions and all questions answered. Thank you for allowing me to participate in her care Will discuss colonoscopy next visit. Patient will stop taking pantoprazole 2 weeks before next appointment so we can do H pylori breath test. Stop famotidine 24 hours before testing. NPO 1 hour before appointment Medications: New sennosides (Natural Senna Laxative) 17.2 mg (2 x 8.6 mg) PO BEDTIME 60 tabs 3RF constipation K59.00 - Constipation, unspecified sucralfate 1 g PO BEDTIME 30 tabs 4RF R19.7 - Diarrhea, unspecified pantoprazole take one tablet half an hour before breakfast 40 mg PO DAILY 30 tabs 2RF K21.9 - Gastro-esophageal reflux disease without esophagitis Discontinued famotidine Discontinued Reason: Doctor's Order 20 mg PO BEDTIME PRN 30 tabs 3RF acid reflux K21.9 - Gastro-esophageal reflux disease without esophagitis omeprazole Discontinued Reason: Doctor's Order 20 mg PO DAILY 90 days 90 caps 3RF Coding Level of Care Code Est Pt Level 4 (34247) Diagnoses Diverticulosis K57.90 Gastroesophageal reflux disease, unspecified whether esophagitis present K21.9 Esophagitis presence: esophagitis presence not specified Oropharyngeal dysphagia R13.12 Dysphagia type: oropharyngeal phase Slow transit constipation K59.01 Constipation type: slow transit constipation Time Spent (min) 35 Comment 20 minutes spent with patient and additional 15 minutes spent reviewing her records
[2023-08-30 11:54] VITALS: BP 130/82; PULSE 90; O2SAT 96; BMI 27.5
== END 2023-08-30 12:25 | disposition home or self-care (01) ==
PROVIDERS: PCP Internal Medicine; Visit Provider Nurse Practitioner Family
DX: K57.90 Diverticulosis of intestine, part unspecified, without perforation or abscess without bleeding (principal); K21.9 Gastro-esophageal reflux disease without esophagitis; R13.12 Dysphagia, oropharyngeal phase; K59.01 Slow transit constipation
CPT/HCPCS: 99214

== ENCOUNTER → 2023-08-30 11:32 | Outpatient (BNVA) | payer OTHER, SELFPAY | PROVIDERS: PCP Internal Medicine; Visit Provider Nurse Practitioner Family | DX: K57.90 Diverticulosis of intestine, part unspecified, without perforation or abscess without bleeding (principal); K21.9 Gastro-esophageal reflux disease without esophagitis; R13.12 Dysphagia, oropharyngeal phase; K59.01 Slow transit constipation | CPT/HCPCS: 99212 ==

== ENCOUNTER 2023-09-21 11:13 | Outpatient (AMB) | payer OTHER, SELFPAY ==
--- NOTE | 2023-09-21 11:18 | MHC.OFFWIV ---
Intake Vital Signs 09/21/23 11:19 Height 5 ft 1 in BP 118/72 Blood Pressure Location Rt brachial Position Sitting Pulse 67 Pulse Source Pulse Oximeter Temp 98.5 F Temp Source Oral Pulse Oximetry (%) 98 Intake Visit Reasons: EP chest congestion, mucus, headache Intake Note: pt is here for chest congestio, mucus and headache Patient Tobacco Use Status: Never used Tobacco Allergies No Known Allergies Allergy (Verified 09/21/23 11:19) Do you need a note to return to daycare/school/sports/work: No HPI HPI Comments History of Present Illness Details 58 y/o male patient who presents to walk in clinic with c/o URI symptoms ~ a week now. Denies fevers, chills, nausea or vomiting. [facility] Medical History Esophageal candidiasis Tubulovillous adenoma Tubular adenoma Diverticulosis Normocytic anemia Asthma Mild recurrent major depression Insomnia Pure hypercholesterolemia Hypovitaminosis D Osteoarthritis of right knee B12 deficiency Allergic rhinitis Right knee pain Lumbar pain Pelvic pain Overweight Microcytic anemia Depression with anxiety Fibromyalgia GERD (gastroesophageal reflux disease) Asthma Surgical History History of esophagogastroduodenoscopy (EGD) Hx of colonoscopy History of total right hip replacement Hx laparoscopic cholecystectomy Previous section Family History Mother Hypertension Breast cancer, Onset Age: 73 Father No problems noted. Social History Household Members: Spouse and Children Housing: House Alcohol intake: never Patient Tobacco Use Status: Never used Tobacco e-Cigarette/Vaping Use: Never Used Second Hand Smoke Exposure: No service: No Current occupational status: disabled Sexual orientation: Straight/Heterosexual Gender identity: Female Cognitive needs: No Hearing needs: No Vision needs: Yes (reading glasses) Female Reproductive History Menstrual Age of Menarche: 15 Review of Systems Const All systems reviewed & are unremarkable except as noted in HPI and below Physical Exam Vital Signs: Last Vital Signs Temp 98.5 F 09/21/23 11:19 Pulse 67 09/21/23 11:19 BP 118/72 09/21/23 11:19 Pulse Ox 98 09/21/23 11:19 Const General: comfortable and no acute distress Nutritional Appearance: obese Orientation/consciousness: patient oriented x3 HEENT Head: Yes normocephalic Ears: external ears normal and TM abnormal bulging, erythematous and with fluid behind the TM General nose exam: Abnormal mucous membranes and turbinates present boggy and erythematous Face and sinus: Yes sinus tenderness Mouth: moist mucous membranes Throat: Yes posterior oropharynx normal Resp Effort & Inspection: normal respiratory effort and able to speak in complete sentences Auscultation: clear to auscultation bilaterally, no crackles, no rales, no rhonchi and wheezes right lower and right upper Cardio Rate: regular rate Rhythm: regular rhythm Neuro General: patient oriented x3, gait normal and moves all extremities Psych Speech and movement: Normal speech and movement present Assessment & Plan Assessment & Plan (1) Acute rhinosinusitis: Code(s): J01.90 - Acute sinusitis, unspecified Plan: Take medicines as directed Take Zyrtec BID (AM & PM) Rest and hydrate well Acetaminophen for pain relief. Medications: New oxymetazoline 0.05% (Afrin (oxymetazoline)) 2 sprays intranasal Q12H 3 days PRN 22 mL 0RF nasal congestion J01.90 - Acute sinusitis, unspecified amoxicillin 500 mg PO BID 7 days 14 caps 0RF J01.90 - Acute sinusitis, unspecified cetirizine (Zyrtec) 10 mg PO DAILY PRN 30 tabs 0RF allergy symptoms J01.90 - Acute sinusitis, unspecified Coding Level of Care Code Est Pt Level 3 (65392) Diagnoses Acute rhinosinusitis J01.90 Time Spent (min) 15
[2023-09-21 11:19] VITALS: BP 118/72; PULSE 67; TEMP 36.9; O2SAT 98
== END 2023-09-21 11:39 | disposition home or self-care (01) ==
PROVIDERS: PCP Internal Medicine; Visit Provider Nurse Practitioner Family
DX: J01.90 Acute sinusitis, unspecified (principal)
CPT/HCPCS: 99213

== ENCOUNTER 2023-12-02 11:56 | Day surgery (SDC) | payer OTHER, SELFPAY ==
--- NOTE | 2023-11-30 15:28 | HO.ANESPROP2 ---
Documented by User: Dinah Hare NP 11/30/23 15:29 HPI - Anesthesia Eval Consult details Narrative: 58yo F for Upper Endoscopy and Colonoscopy PMFSH Active Problems Active Problems: All Active Problems Moderate major depression (Acute) Tubulovillous adenoma (Acute) Tubular adenoma (Acute) Diverticulosis (Acute) Palpitation (Acute) Encounter for annual routine gynecological examination (Acute) Atrophic vaginitis (Acute) Upper respiratory tract infection (Acute) Status post total hip replacement, right (Acute) Screening for hypothyroidism (Acute) Hypotension (Acute) Left breast mass (Acute) Lumbar pain (Acute) Dysphagia (Acute) Physical exam (Acute) Skin lesion (Acute) Normocytic anemia (Acute) Asthma (Acute) Mild recurrent major depression (Acute) Insomnia (Acute) Pure hypercholesterolemia (Acute) Hypovitaminosis D (Acute) Osteoarthritis of right knee (Acute) B12 deficiency (Acute) Allergic rhinitis (Acute) Right knee pain (Acute) Lumbar pain (Acute) Pelvic pain (Acute) Overweight (Acute) Microcytic anemia (Acute) Depression with anxiety (Acute) Fibromyalgia (Acute) GERD (gastroesophageal reflux disease) (Acute) Asthma (Acute) Past Medical History Medical History Esophageal candidiasis Tubulovillous adenoma Tubular adenoma Diverticulosis Normocytic anemia Asthma Mild recurrent major depression Insomnia Pure hypercholesterolemia Hypovitaminosis D Osteoarthritis of right knee B12 deficiency Allergic rhinitis Right knee pain Lumbar pain Pelvic pain Overweight Microcytic anemia Depression with anxiety Fibromyalgia GERD (gastroesophageal reflux disease) Asthma Family History Family History Mother Hypertension Breast cancer, Onset Age: 73 Father No problems noted. Family history of problems with anesthesia: No Surgical History Surgical History History of esophagogastroduodenoscopy (EGD) Hx of colonoscopy History of total right hip replacement Hx laparoscopic cholecystectomy Previous section History of Problems with Anesthesia: No Social History Social History Household Members: Spouse and Children Housing: House Alcohol intake: never Patient Tobacco Use Status: Never used Tobacco e-Cigarette/Vaping Use: Never Used Second Hand Smoke Exposure: No Use of substances other than those prescribed or required for medical reasons: No Are you DNR?: No Advance Directives: No Advance Directives Information Provided: Yes service: No Current occupational status: disabled Sexual orientation: Straight/Heterosexual Gender identity: Female Cognitive needs: No Hearing needs: No Vision needs: Yes (reading glasses) Meds Allergies Allergy/AdvReac Type Severity Reaction Status Date / Time No Known Allergies Allergy Verified 12/02/23 12:37 Home Medications ?Medication ?Instructions ?Recorded ?Confirmed ?Last Taken ?Type clonazepam 0.5 mg tablet 0.5 mg PO TID 04/28/20 05/30/23 06/11/22 History gabapentin 300 mg capsule 300 mg PO TID PRN Pain 04/28/20 05/30/23 06/11/22 History tretinoin 0.05 % topical cream appl topical 08/30/23 Unknown History Exam Pertinent Lab Results Pertinent Lab Results: Laboratory Tests 07/08/23 08:40 WBC 8.5 Hgb 11.8 L Hct 38.0 Plt Count 326 Sodium 141 Potassium 3.4 Chloride 106 Carbon Dioxide 28 BUN 10 Creatinine 1.03 Narrative Narrative: EKG 06/2023 Assessment and Plan Assessment Anesthesia Assessment: Chart Reviewed Final Anesthetic Review Family History of Problems with Anesthesia: No History of Problems with Anesthesia: No Documented by User: Cheyanne Starks MD 12/02/23 14:46 PMFSH Active Problems Active Problems: All Active Problems Moderate major depression (Acute) Tubulovillous adenoma (Acute) Tubular adenoma (Acute) Diverticulosis (Acute) H/o Palpitations - better Encounter for annual routine gynecological examination (Acute) Atrophic vaginitis (Acute) Status post total hip replacement, right (Acute) Screening for hypothyroidism (Acute) H/o Hypotension (Acute) Left breast mass (Acute) Lumbar pain (Acute) Dysphagia (Acute) Physical exam (Acute) Skin lesion (Acute) H/o anemia Asthma (Acute) Mild recurrent major depression (Acute) Insomnia (Acute) Pure hypercholesterolemia (Acute) Hypovitaminosis D (Acute) Osteoarthritis of right knee (Acute) B12 deficiency (Acute) Allergic rhinitis (Acute) Right knee pain (Acute) Pelvic pain (Acute) Overweight (Acute) Depression with anxiety (Acute) Fibromyalgia (Acute) GERD (gastroesophageal reflux disease) (Acute) Past Medical History Medical History Esophageal candidiasis Tubulovillous adenoma Tubular adenoma Diverticulosis Normocytic anemia Asthma Mild recurrent major depression Insomnia Pure hypercholesterolemia Hypovitaminosis D Osteoarthritis of right knee B12 deficiency Allergic rhinitis Right knee pain Lumbar pain Pelvic pain Overweight Microcytic anemia Depression with anxiety Fibromyalgia GERD (gastroesophageal reflux disease) Asthma Family History Family History Mother Hypertension Breast cancer, Onset Age: 73 Father No problems noted. Family history of problems with anesthesia: No Surgical History Surgical History History of esophagogastroduodenoscopy (EGD) Hx of colonoscopy History of total right hip replacement Hx laparoscopic cholecystectomy Previous section History of Problems with Anesthesia: No Social History Social History Household Members: Spouse and Children Housing: House Alcohol intake: never Patient Tobacco Use Status: Never used Tobacco e-Cigarette/Vaping Use: Never Used Second Hand Smoke Exposure: No Use of substances other than those prescribed or required for medical reasons: No Are you DNR?: No Advance Directives: No Advance Directives Information Provided: Yes service: No Current occupational status: disabled Sexual orientation: Straight/Heterosexual Gender identity: Female Cognitive needs: No Hearing needs: No Vision needs: Yes (reading glasses) Meds Allergies Allergy/AdvReac Type Severity Reaction Status Date / Time No Known Allergies Allergy Verified 12/02/23 12:37 Home Medications ?Medication ?Instructions ?Recorded ?Confirmed ?Last Taken ?Type clonazepam 0.5 mg tablet 0.5 mg PO TID 04/28/20 05/30/23 06/11/22 History gabapentin 300 mg capsule 300 mg PO TID PRN Pain 04/28/20 05/30/23 06/11/22 History tretinoin 0.05 % topical cream appl topical 08/30/23 Unknown History Exam Height,Weight and Vital Signs: Height 5 ft 1 in Weight 60.781 kg Vital Signs Temp Pulse Resp BP Pulse Ox O2 Del Method 12/02/23 12:46 97.1 F 89 15 133/80 96 Room Air Airway Mallampati Class: II TM Dist: >3cm Neck ROM: Full Loose/Missing/Broken Teeth: Yes (Edentulous. Top dentures out) Heart: RRR Lungs: CTAB Assessment and Plan Assessment Anesthesia Assessment: Anesthesia Plan Discussed and Chart Reviewed Final Anesthetic Review Family History of Problems with Anesthesia: No History of Problems with Anesthesia: No NPO: Yes ASA Class: II Final Preanesthetic Review: No Changes in Pt Med Stat, Meds/Allgs Chart Reviewed, Consent Obtained/Reviewed and Anes Risks/Benef Reviewed Patient Risk: Intermediate Procedure Risk: Low Assessment/Block/Sedation in SS: Assess/Block/Sedation-SS Anesthetic Plan Anesthetic Plan: TIVA Disposition: Standard PACU
[2023-12-02 12:40] VITALS: BMI 25.3
[2023-12-02 12:46] VITALS: BP 133/80; PULSE 89; RESP 15; TEMP 36.2; O2SAT 96
[2023-12-02] MEDS: Lactated Ringers 1,000 ML 100 ML IVCONT (13:05)
--- NOTE | 2023-12-02 13:48 | MHC.SHP ---
Pre-Procedural Eval Section A - 24 Hr Update-Section A only Date of Service: 12/02/23 The patient is an INPATIENT: No The patient has been examined within 24 hours of the surgical procedure. The History & Physical has been completed within 30 days and I have reviewed it.: No Section B - Complete if H&P > 30 days Chief Complaint: Surveillance for colon polyps, GERD, abd pain Relevant Family History (Specify if Yes): No Relevant Social History: None Present Medications: see Short Stay Collaborative assessment Medical History: Significant History (Tubulovillous adenoma Tubular adenoma Diverticulosis Normocytic anemia Asthma Mild recurrent major depression Insomnia Pure hypercholesterolemia Hypovitaminosis D Osteoarthritis of right knee B12 deficiency Allergic rhinitis Right knee pain Lumbar pain Pelvic pain Overweight Microcytic anemia Depres) History of Previous Operations: Relevant previous surgery/procedure and date(s) (History of esophagogastroduodenoscopy (EGD) Hx of colonoscopy History of total right hip replacement Hx laparoscopic cholecystectomy Previous section) Allergies: Allergies Allergy/AdvReac Type Severity Reaction Status Date / Time No Known Allergies Allergy Verified 12/02/23 12:37 Review of Systems Sugical H&P ROS: Negative: Constitution, Cardiovascular, Respiratory and Gastrointestinal Exam Surgical H&P Exam: Normal: Heart, Normal: Lungs and Normal: Abdomen Plan Diagnosis/Plan: Change (proceed with EGD and colon) I have reviewed the history and physical and performed a pertinent physical examination on my patient. No changes have occurred unless specified. Time Spent With Patient Time: Total time managing care of this patient today ____ minutes.
--- NOTE | 2023-12-02 14:39 | HO.OPN-COLON ---
Colonoscopy Operative Note Operative Note Date of Service: 12/02/23 Narrative: FLEXIBLE TRANSORAL UPPER GASTROINTESTINAL ENDOSCOPY WITH BIOPSIES AND ESOPHAGEAL BALLOON DILATION AND COLONOSCOPY TILL CECUM WITH BIOPSIES AND SNARE POLYPECTOMY Pre-op diagnosis: Surveillance for colon polyps, GERD, epigastric pain, dysphagia Post-op diagnosis: GERD, dysphagia, Gastritis, Colon Polyps, Diverticulosis, hemorrhoids Endoscopist:? Anand Torres MD Anesthesia:?MAC UPPER ENDOSCOPY Consent: Indications for the procedure and potential complications of bleeding, perforation, reaction to medications and missed diagnosis were discussed with the patient and informed consent was obtained. Instrument: Olympus GIF H 190 mid size upper endoscope Monitoring: Vital signs and clinical assessment, continuous EKG monitoring, Pulse oximetry, Carbon Dioxide monitoring and blood pressure monitoring were done throughout the procedure. Procedure: The patient was placed in the left lateral decubitis position and pre-procedure medications were administered and a bite block was placed. The endoscope was inserted into the mouth and advanced under direct vision to the third part of duodenum. A careful inspection was made as the upper endoscope was withdrawn including a retroflexed examination of the proximal stomach; Findings and interventions are described below. Findings: Larynx: Normal Esophagus: Tortuous esophagus with increased tertiary contractions without stricture or ring. Biopsies obtained from proximal esophagus during past EGD were negative for EOE. GE junction at 36 cms. No esophagitis or Katz's. Empiric balloon dilation of distal esophagus was performed with a 20 mm (60 F) CRE balloon x 60 seconds Stomach: Moderate diffuse gastric erythema in the gastric body. Biopsies were obtained from the antrum and body of the stomach. Grade 2 flap valve on retroflexed examination of the cardia. Duodenum: Normal bulb and descending duodenum. Biopsies obtained from 3rd part of the duodenum during past EGD were negative for celiac sprue COLONOSCOPY PROCEDURE NOTE Instrument: Olympus PCF H 190 L variable stiffness pediatric colonoscope Monitoring: Vital signs and clinical assessment, intermittent blood pressure monitoring, continuous EKG monitoring, Pulse oximetry and Carbon Dioxide monitoring were done throughout the procedure. Please see anesthesia flowsheet. Colon withdrawl time was 17 minutes. Procedure: The patient was placed in the left lateral decubitis position and pre-procedure medications were administered. After a digital rectal examination of the ano-rectum, the video colonoscope was inserted into the rectum and advanced through the colon to the cecum. The colonoscope was slowly withdrawn in a retrograde panoramic fashion and the colon mucosa was carefully examined including a retroflexed view of the rectum. Findings and interventions are described below. Procedure Difficulty: without difficulty Findings: Terminal Ileum: Not evaluated Cecum: A 3-4 mm sessile polyp removed with a cold bx Ascending Colon: A 3-4 mm sessile polyp in the proximal AC - removed with a cold biopsy. A hemoclip noted in the proximal AC (placed during previous colonoscopy) A 12-15 mm sessile polyp in the distal AC - removed with a stiff hot snare Transverse Colon: A 7-8 mm sessile polyp - removed with a cold snare and polyp was not retrieved Descending Colon: Moderate diverticulosis Sigmoid Colon: Moderate diverticulosis Rectum: Normal Ano-rectum: Moderate internal hemorrhoids Colon preparation: Good after copious irrigation. [place] Bowel Preparation Scale Right colon; 2 Transverse colon: 2 Left colon; 2 (0 = Unprepared colon segment with mucosa not seen due to solid stool that cannot be cleared. 1 = Portion of mucosa of the colon segment seen, but other areas of the colon segment not well seen due to staining, residual stool and/or opaque liquid. 2 = Minor amount of residual staining, small fragments of stool and/or opaque liquid, but mucosa of colon segment seen well. 3 = Entire mucosa of colon segment seen well with no residual staining, small fragments of stool or opaque liquid) Impression and Post Procedure Diagnosis: Endoscopy Findings: ESOPHAGUS: Dysphagia likely due to esophageal motility disorder. Empiric balloon dilation of distal esophagus was performed with a 20 mm (60 F) CRE balloon x 60 seconds STOMACH: Diffuse gastritis - mapping biopsies were obtained to FU on gastric intestinal metaplasia DUODENUM: Normal Colonoscopy Findings: Three small and one medium sized polyps were removed Moderate diverticulosis seen in the left colon Moderate hemorrhoids on retroflexed exam. Plan: Pt has a FU appointment on 12/16/23 with Sharon Ruffin NP Repeat Colonoscopy in 3 years if polyps are adenomatous and 5 years if polyps are hyperplastic. Above findings were reviewed with the patient and relevant handouts were given and the discharge area. BIOPSIES SHOWED: A. Gastric antrum, biopsy: Gastric antral mucosa with minimal chronic inactive gastritis, and focal gland atrophy with intestinal metaplasia; negative for dysplasia. B. Gastric body, greater curve, biopsy: Gastric body mucosa with mild chronic inactive gastritis; negative for intestinal and pyloric-type metaplasia and dysplasia. C. Gastric body, lesser curve, biopsy: Gastric body mucosa with mild chronic inactive gastritis; negative for intestinal and pyloric-type metaplasia and dysplasia. D. Gastric incisura, biopsy: Gastric antral mucosa with minimal chronic inactive gastritis; negative for intestinal metaplasia and dysplasia. E. Colon, ascending, polyp #1: Polypoid colonic mucosa with lymphoid aggregate; no adenomatous dysplasia seen on initial levels. F. Colon, cecal polyp: Polypoid colonic mucosa with lymphoid aggregate; no adenomatous dysplasia seen on initial levels. G. Colon, ascending, polyp #2: Tubular adenoma; negative for high-grade dysplasia and carcinoma. Letter sent advising repeat EGD (FU of gastric intestinal metaplasia) and colonoscopy (FU of colon polyps) in 3 years And patient was placed on EGD and colonoscopy recall list.
[2023-12-02 15:30] VITALS: BP 104/70; PULSE 80; RESP 12; TEMP 36.1; O2SAT 95
[2023-12-02 15:45] VITALS: BP 123/69; PULSE 84; RESP 16; TEMP 36.1; O2SAT 97
== END 2023-12-02 16:02 | disposition home or self-care (01) ==
PROVIDERS: PCP Internal Medicine; Visit Provider Internal Medicine Gastroenterology
PROC: (CPT 43239; principal; 2023-12-02 13:50)
DX: K31.A11 Gastric intestinal metaplasia without dysplasia, involving the antrum (principal); K29.50 Unspecified chronic gastritis without bleeding; K63.89 Other specified diseases of intestine; R13.10 Dysphagia, unspecified; K21.9 Gastro-esophageal reflux disease without esophagitis; K22.4 Dyskinesia of esophagus; Z12.11 Encounter for screening for malignant neoplasm of colon; D12.2 Benign neoplasm of ascending colon; D12.0 Benign neoplasm of cecum; K57.30 Diverticulosis of large intestine without perforation or abscess without bleeding; K64.8 Other hemorrhoids; Z86.010 Personal history of colon polyps; D64.9 Anemia, unspecified; E78.00 Pure hypercholesterolemia, unspecified; J45.909 Unspecified asthma, uncomplicated; Z79.899 Other long term (current) drug therapy
CPT/HCPCS: 43239; 43249; 45380; 45385; 88305; 88313; 88342; C1726; J2704

== ENCOUNTER → 2023-12-02 11:56 | Outpatient (BNV) | payer OTHER, SELFPAY | PROVIDERS: PCP Internal Medicine; Visit Provider Internal Medicine Gastroenterology | DX: R13.10 Dysphagia, unspecified (principal); Z12.11 Encounter for screening for malignant neoplasm of colon; D12.0 Benign neoplasm of cecum; D12.2 Benign neoplasm of ascending colon; D12.3 Benign neoplasm of transverse colon; K57.90 Diverticulosis of intestine, part unspecified, without perforation or abscess without bleeding | CPT/HCPCS: 43239; 43249; 45380; 45385 ==

== ENCOUNTER 2023-12-09 13:00 | Outpatient (REF) | payer OTHER, SELFPAY ==
--- NOTE | ~2023-12-09 | MM_ITS ---
EXAMINATION: MM SCREENING DIGITAL BREAST TOMOSYNTHESIS, BILATERAL CLINICAL INFORMATION: Screening. Asymptomatic. COMPARISON: Mammography: Comparison is made with available priors TECHNIQUE: Digital breast mammography with tomosynthesis is performed in both the craniocaudal and mediolateral oblique views along with computer-aided detection (CAD). FINDINGS: There are scattered areas of fibroglandular density (ACR BI-RADS breast composition Category b). There are no significant masses, abnormal calcifications, or other abnormalities. MM/MM tomosynthesis screening BI IMPRESSION: No mammographic evidence of malignancy. ASSESSMENT: BI-RADS BI-RADS 1 - Negative RECOMMENDATION: Routine annual mammography screening. 1 year F/U This examination should not preclude the clinical evaluation of a suspicious palpable abnormality. This patient's information was entered into a reminder system with a target due date for their next mammogram. Electronically signed by: Lurdes Lau DO 12/21/2023 03:39 PM EDT
== END 2023-12-09 13:01 | disposition home or self-care (01) ==
LOC: HO.MAMMO 13:00
PROVIDERS: PCP Internal Medicine; Visit Provider Internal Medicine
DX: Z12.31 Encounter for screening mammogram for malignant neoplasm of breast (principal)
CPT/HCPCS: 77063; 77067

== ENCOUNTER → 2023-12-09 13:15 | Outpatient (BNV) | payer OTHER, SELFPAY | PROVIDERS: PCP Internal Medicine; Visit Provider Internal Medicine | DX: Z12.31 Encounter for screening mammogram for malignant neoplasm of breast (principal) | CPT/HCPCS: 77063; 77067 ==

== ENCOUNTER 2023-12-16 11:12 | Outpatient (AMB) | payer OTHER, SELFPAY ==
[2023-12-16 11:16] VITALS: BP 134/78; PULSE 94; O2SAT 97; BMI 26.6
--- NOTE | 2023-12-16 11:16 | MHC.OFFVIS ---
Vital Signs 12/16/23 11:16 Height 5 ft 1 in Weight 140 lb 10.479 oz BMI 26.6 BP 134/78 Blood Pressure Location Rt brachial Position Sitting Pulse 94 Pulse Source Pulse Oximeter Pulse Oximetry (%) 97 Oxygen Delivery Method Room Air Intake Visit Reasons: s/p colonoscopy venessa Intake Note: Stephanie presents in office today for a scheduled s/p FUV. CC; Pt denies any complications post op. Pt does report having some concerns regarding her reflux. Pt reports having intermittent breakthrough sx that have become slightly more frequent. Pt does state that they take tums for breakthrough sx and that typically does help in the short term. Pt does want to have the omeprazole re'rx'd as they feel that this would be helpful given their current state. 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 Patient feels like omeprazole or famotidine are not helpful. Will change to pantoprazole in the morning and sucralfate at bedtime. Patient was encouraged to avoid dietary triggers and late night snacking. Staying upright for minimum 3 hours after meals discussed with patient. Patient also admits to having trouble moving her bowels not always feeling like she is able to empty them completely. Patient will start taking senna daily. Increase fluid intake and activity to promote better bowel motility. Patient will return in 2-3 months, sooner on as needed basis. She is agreeable to this plan and verbalizes understanding of instructions. She was given the opportunity to ask questions and all questions answered. ? Thank you for allowing me to participate in her care ? Will discuss colonoscopy next visit. Patient will stop taking pantoprazole 2 weeks before next appointment so we can do H pylori breath test. Stop famotidine 24 hours before testing. NPO 1 hour before appointment Medications New sennosides (Natural Senna Laxative) 17.2 mg (2 x 8.6 mg) PO BEDTIME 60 tabs 3RF constipation K59.00 sucralfate 1 g PO BEDTIME 30 tabs 4RF R19.7 pantoprazole take one tablet half an hour before breakfast 40 mg PO DAILY 30 tabs 2RF K21.9 Discontinued famotidine Discontinued Reason: Doctor's Order 20 mg PO BEDTIME PRN 30 tabs 3RF acid reflux K21.9 omeprazole Discontinued Reason: Doctor's Order 20 mg PO DAILY 90 days 90 caps 3RF UPPER ENDOSCOPY AND COLONOSCOPY Upper endoscopy Findings: Larynx: Normal Esophagus: Tortuous esophagus with increased tertiary contractions without stricture or ring. Biopsies obtained from proximal esophagus during past EGD were negative for EOE. GE junction at 36 cms. No esophagitis or Katz's. Empiric balloon dilation of distal esophagus was performed with a 20 mm (60 F) CRE balloon x 60 seconds Stomach: Moderate diffuse gastric erythema in the gastric body. Biopsies were obtained from the antrum and body of the stomach. Grade 2 flap valve on retroflexed examination of the cardia. Duodenum: Normal bulb and descending duodenum. Biopsies obtained from 3rd part of the duodenum during past EGD were negative for celiac sprue Colonoscopy Findings: Terminal Ileum: Not evaluated Cecum: A 3-4 mm sessile polyp removed with a cold bx Ascending Colon: A 3-4 mm sessile polyp in the proximal AC - removed with a cold biopsy. A hemoclip noted in the proximal AC (placed during previous colonoscopy) A 12-15 mm sessile polyp in the distal AC - removed with a stiff hot snare Transverse Colon: A 7-8 mm sessile polyp - removed with a cold snare and polyp was not retrieved Descending Colon: Moderate diverticulosis Sigmoid Colon: Moderate diverticulosis Rectum: Normal Ano-rectum: Moderate internal hemorrhoids Colon preparation: Good after copious irrigation. [place] Bowel Preparation Scale Right colon; 2 Transverse colon: 2 Left colon; 2 (0 = Unprepared colon segment with mucosa not seen due to solid stool that cannot be cleared. 1 = Portion of mucosa of the colon segment seen, but other areas of the colon segment not well seen due to staining, residual stool and/or opaque liquid. 2 = Minor amount of residual staining, small fragments of stool and/or opaque liquid, but mucosa of colon segment seen well. 3 = Entire mucosa of colon segment seen well with no residual staining, small fragments of stool or opaque liquid) Impression and Post Procedure Diagnosis: Endoscopy Findings: ESOPHAGUS: Dysphagia likely due to esophageal motility disorder. Empiric balloon dilation of distal esophagus was performed with a 20 mm (60 F) CRE balloon x 60 seconds STOMACH: Diffuse gastritis - mapping biopsies were obtained to FU on gastric intestinal metaplasia DUODENUM: Normal Colonoscopy Findings: Three small and one medium sized polyps were removed Moderate diverticulosis seen in the left colon Moderate hemorrhoids on retroflexed exam. Plan: Repeat Colonoscopy in 3 years if polyps are adenomatous and 5 years if polyps are hyperplastic. Above findings were reviewed with the patient and relevant handouts were given and the discharge area. BIOPSIES SHOWED: A. Gastric antrum, biopsy: Gastric antral mucosa with minimal chronic inactive gastritis, and focal gland atrophy with intestinal metaplasia; negative for dysplasia. B. Gastric body, greater curve, biopsy: Gastric body mucosa with mild chronic inactive gastritis; negative for intestinal and pyloric-type metaplasia and dysplasia. C. Gastric body, lesser curve, biopsy: Gastric body mucosa with mild chronic inactive gastritis; negative for intestinal and pyloric-type metaplasia and dysplasia. D. Gastric incisura, biopsy: Gastric antral mucosa with minimal chronic inactive gastritis; negative for intestinal metaplasia and dysplasia. E. Colon, ascending, polyp #1: Polypoid colonic mucosa with lymphoid aggregate; no adenomatous dysplasia seen on initial levels. F. Colon, cecal polyp: Polypoid colonic mucosa with lymphoid aggregate; no adenomatous dysplasia seen on initial levels. G. Colon, ascending, polyp #2: Tubular adenoma; negative for high-grade dysplasia and carcinoma. Letter sent advising repeat EGD (FU of gastric intestinal metaplasia) and colonoscopy (FU of colon polyps) in 3 years And patient was placed on EGD and colonoscopy recall list. Addendum #1 Immunostains for H. pylori on A, B, C and D are negative. AB/PAS on B, C and D are negative for intestinal metaplasia. Controls stain appropriately. E: Additional levels: No adenomatous dysplasia. F: Additional levels: Tubular adenoma; negative for high-grade dysplasia and carcinoma. TODAY'S VISIT: Patient is here today for follow-up and to discuss upper endoscopy and colonoscopy. Patient denies any ill effects from the prep, anesthesia or procedure itself. Patient denies dyspepsia, dysphagia or odynophagia. Patient reports occasional acid reflux. States that she takes omeprazole at 17:00 and famotidine at night time. Patient denies any nausea or vomiting. Reports that she is moving her bowels better now that she is taking senna. Only uses senna on as-needed basis. Upper endoscopy and colonoscopy discussed with patient. No H pylori or intestinal metaplasia found on upper endoscopy biopsies. Colonoscopy showed 1 tubular adenoma in ascending colon otherwise polypoid colonic mucosa without dysplasia or carcinoma. Patient denies melena, hematochezia, unintentional weight loss or ribbon like stools. [facility] Medical History Esophageal candidiasis Tubulovillous adenoma Tubular adenoma Diverticulosis Normocytic anemia Asthma Mild recurrent major depression Insomnia Pure hypercholesterolemia Hypovitaminosis D Osteoarthritis of right knee B12 deficiency Allergic rhinitis Right knee pain Lumbar pain Pelvic pain Overweight Microcytic anemia Depression with anxiety Fibromyalgia GERD (gastroesophageal reflux disease) Asthma Surgical History History of esophagogastroduodenoscopy (EGD) Hx of colonoscopy History of total right hip replacement Hx laparoscopic cholecystectomy Previous section Family History Mother Hypertension Breast cancer, Onset Age: 73 Father No problems noted. Social History Household Members: Spouse and Children Housing: House Alcohol intake: never Patient Tobacco Use Status: Never used Tobacco e-Cigarette/Vaping Use: Never Used Second Hand Smoke Exposure: No service: No Current occupational status: disabled Sexual orientation: Straight/Heterosexual Gender identity: Female Cognitive needs: No Hearing needs: No Vision needs: Yes (reading glasses) Female Reproductive History Menstrual Age of Menarche: 15 Review of Systems Const Denies weight gain and Denies weight loss ENT Reports no additional complaints, Denies dysphagia and Denies odynophagia Card Reports no additional complaints Resp Reports no additional complaints GI Reports abdominal pain (epigastric), Denies belching, Denies melena, Denies bloating, Denies change in bowel habits, Reports constipation (occasional, uses senna as needed), Denies dysphagia, Denies excessive flatus, Denies dyspepsia, Reports heartburn, Denies diarrhea, Denies loose stools, Denies nausea, Denies odynophagia and Denies vomiting Musc Reports no additional complaints Neuro Reports no additional complaints Psych Reports no additional complaints Endo Reports no additional complaints Physical Exam Vital Signs: BMI result Body Mass Index 26.6 Const General: healthy appearing, no acute distress and well developed Nutritional Appearance: well nourished Orientation/consciousness: patient oriented x3 Resp Effort & Inspection: normal respiratory effort, able to speak in complete sentences, no tracheal deviation and symmetric chest movement Auscultation: clear to auscultation bilaterally Cardio Rate: regular rate GI Inspection: Yes normal to inspection and No distended Palpation (GI): Soft to palpation, not firm, nontender and No hepatosplenomegaly present Auscultation: normal bowel sounds General: Yes no CVA tenderness Back/Spine/Pelvis Back: no CVA tenderness Skin General skin exam: elasticity normal, turgor normal and dry skin Neuro General: patient oriented x3 Psych Appearance: grossly normal Mental Status: mental status grossly normal Assessment & Plan Assessment & Plan (1) Tubular adenoma: Code(s): D36.9 - Benign neoplasm, unspecified site Category: Medical (2) Diverticulosis: Code(s): K57.90 - Diverticulosis of intestine, part unspecified, without perforation or abscess without bleeding Category: Medical (3) GERD (gastroesophageal reflux disease): Code(s): K21.9 - Gastro-esophageal reflux disease without esophagitis Category: Medical Qualifiers: Esophagitis presence: esophagitis presence not specified Qualified Code(s): K21.9 - Gastro-esophageal reflux disease without esophagitis (4) Status post colonoscopy: Code(s): Z98.890 - Other specified postprocedural states Plan Patient will return in 2 weeks for H pylori breath test. Off PPI for 2 weeks and off H2 leslee for 24-48 hours before the test. Patient will change the omeprazole to taking in the morning. Patient was encouraged to avoid dietary triggers and late night snacking. Staying upright for minimum 3 hours after meals discussed with patient. Continue taking Senokot on as needed basis. Increase fluid intake and activity to promote better bowel motility. Patient will follow-up in the office in 3 months, sooner on as needed basis. She is agreeable to this plan and verbalizes understanding of instructions. She was given the opportunity to ask questions and all questions answered. Thank you for allowing me to participate in her care Orders: Orders H Pylori Breath Test Today K21.9 - Gastro-esophageal reflux disease without esophagitis Medications: New omeprazole 20 mg PO DAILY 30 caps 3RF K21.9 - Gastro-esophageal reflux disease without esophagitis Refilled famotidine 40 mg PO BEDTIME 90 tabs 3RF K21.9 - Gastro-esophageal reflux disease without esophagitis Discontinued pantoprazole take one tablet half an hour before breakfast Discontinued Reason: Doctor's Order 40 mg PO DAILY 30 tabs 2RF K21.9 - Gastro-esophageal reflux disease without esophagitis sucralfate Discontinued Reason: Doctor's Order 1 g PO BEDTIME 30 tabs 4RF R19.7 - Diarrhea, unspecified Coding Level of Care Code Est Pt Level 4 (09188) Diagnoses Tubular adenoma D36.9 Diverticulosis K57.90 Gastroesophageal reflux disease, unspecified whether esophagitis present K21.9 Esophagitis presence: esophagitis presence not specified Status post colonoscopy Z98.890 Time Spent (min) 35 Comment 20 minutes spent with patient and additional 15 minutes spent reviewing her records
== END 2023-12-16 11:59 | disposition home or self-care (01) ==
PROVIDERS: PCP Internal Medicine; Visit Provider Nurse Practitioner Family
DX: D36.9 Benign neoplasm, unspecified site (principal); K57.90 Diverticulosis of intestine, part unspecified, without perforation or abscess without bleeding; K21.9 Gastro-esophageal reflux disease without esophagitis; Z98.890 Other specified postprocedural states
CPT/HCPCS: 99214

== ENCOUNTER → 2023-12-16 11:12 | Outpatient (BNVA) | payer OTHER, SELFPAY | PROVIDERS: PCP Internal Medicine; Visit Provider Nurse Practitioner Family | DX: K21.9 Gastro-esophageal reflux disease without esophagitis (principal); K57.90 Diverticulosis of intestine, part unspecified, without perforation or abscess without bleeding; D36.9 Benign neoplasm, unspecified site; Z98.890 Other specified postprocedural states | CPT/HCPCS: 99212 ==

== ENCOUNTER 2023-12-30 11:26 | Outpatient (REF) | payer OTHER, SELFPAY ==
[2023-12-31 13:48] LABS: H Pylori Breath Test Negative (Negative)
== END 2023-12-30 11:27 | disposition home or self-care (01) ==
LOC: HO.LNP 11:26
PROVIDERS: PCP Internal Medicine; Visit Provider Nurse Practitioner Family
DX: K21.9 Gastro-esophageal reflux disease without esophagitis (principal)
CPT/HCPCS: 83013; 99211

== ENCOUNTER 2023-12-30 11:26 | Outpatient (AMB) | payer OTHER, SELFPAY ==
--- NOTE | 2023-12-30 11:46 | AM.OFFVISNUR ---
Intake Visit Reasons: H Pylori, hold omeprazole + famotidine Allergies No Known Allergies Allergy (Verified 12/16/23 11:17) Nursing Note Patient presents for collection of H Pylori breath test. Patient has been fasting for 1 hour (nothing to eat, drink, no chewing gum or smoking) has not taken any antacid medication for at least 2 weeks and has no allergies to artificial sweeteners.?? Assessment & Plan Assessment & Plan (1) GERD (gastroesophageal reflux disease): Code(s): K21.9 - Gastro-esophageal reflux disease without esophagitis Category: Medical Qualifiers: Esophagitis presence: esophagitis presence not specified Qualified Code(s): K21.9 - Gastro-esophageal reflux disease without esophagitis Plan Patient presents for collection of H Pylori breath test. Patient has been fasting for 1 hour (nothing to eat, drink, no chewing gum or smoking) has not taken any antacid medication for at least 2 weeks and has no allergies to artificial sweeteners.???This test checks for an overgrowth of bacteria in your stomach. We all have bacteria but some may have more than others. It is treatable. if the test comes back negative there is nothing else to do. If the test result is positive we will treat you with 2 antibiotics and a medication to decrease the acid in your stomach (PPI) for 2 weeks. Two weeks after you have completed the treatment we will retest you to make sure the overgrowth has resolved. Patient Instructions: Process for specimen collection and reason for testing was explained to the patient. Specimen collection. Patient instructed to take a deep breath and then exhale into the blue bag, filling it up as much as possible. Patient instructed to drink a mixture of water and the artificial sweetener with a straw. A 15 minute wait period was observed. Patient instructed to take a deep breath and then exhale into the pink bag, filling it up as much as possible.??
== END 2023-12-30 11:55 | disposition home or self-care (01) ==
PROVIDERS: PCP Internal Medicine; Visit Provider Nurse Practitioner Family
DX: K21.9 Gastro-esophageal reflux disease without esophagitis (principal)

== ENCOUNTER 2024-01-23 11:17 | Outpatient (AMB) | payer OTHER, SELFPAY ==
[2024-01-23 11:32] VITALS: BP 130/72; PULSE 92; O2SAT 97; BMI 26.9
--- NOTE | 2024-01-23 11:32 | MHC.OFFVIS ---
Vital Signs 01/23/24 11:32 Height 5 ft 1 in Weight 142 lb 3.17 oz BMI 26.9 BP 130/72 Blood Pressure Location Lt brachial Position Sitting Pulse 92 Pulse Source Pulse Oximeter Pulse Oximetry (%) 97 Oxygen Delivery Method Room Air Intake Visit Reasons: asthma Intake Note: pt is here for follow up and states her asthma has been good. Online Facilitator Required: No Allergies No Known Allergies Allergy (Verified 01/23/24 11:43) Medication List - Last Reconciled 01/23/24 by Ender Bae MD albuterol sulfate 90 mcg/actuation (Ventolin HFA) 2 puffs PO Q4-6H PRN amitriptyline 150 mg (1.5 x 100 mg) PO BEDTIME 90 days blood pressure monitor As directed cetirizine 10 mg PO DAILY cholecalciferol (vitamin D3) 25 mcg PO DAILY 90 days clonazepam 0.5 mg PO TID famotidine 40 mg PO BEDTIME folic acid 1 mg PO DAILY 90 days gabapentin 300 mg PO TID PRN omeprazole 20 mg PO DAILY sennosides (Natural Senna Laxative) 17.2 mg (2 x 8.6 mg) PO BEDTIME trazodone 150 mg PO BEDTIME 90 days tretinoin 0.05% appl topical Do you need a note to return to daycare/school/sports/work: No HPI HPI asthma: Details: THIS 59 YEARS OLD VERY PLEASANT FEMALE COMES AFTER 1 YEAR FOR FOLLOW-UP FOR A MILD INTERMITTENT BRONCHIAL ASTHMA. ALL SHE NEEDS IS VENTOLIN INHALER THAT SHE USES 1 OR 2 PUFFS IN THE MORNING AND THEN ONLY NEEDED DURING REST OF THE DAY. SHE HAS INTERMITTENT COUGH WHICH IS MOSTLY RELATED TO GERD SYMPTOMS, AND IMPROVES WITH USE OF TUMS. SHE IS TAKING FAMOTIDINE 40 MG AT BEDTIME WHICH ALSO REDUCES HER GERD SYMPTOMS. LUCKILY SHE HAS HAD NO RESPIRATORY INFECTION. [facility] Medical History Esophageal candidiasis Tubulovillous adenoma Tubular adenoma Diverticulosis Normocytic anemia Asthma Mild recurrent major depression Insomnia Pure hypercholesterolemia Hypovitaminosis D Osteoarthritis of right knee B12 deficiency Allergic rhinitis Right knee pain Lumbar pain Pelvic pain Overweight Microcytic anemia Depression with anxiety Fibromyalgia GERD (gastroesophageal reflux disease) Asthma Surgical History History of esophagogastroduodenoscopy (EGD) Hx of colonoscopy History of total right hip replacement Hx laparoscopic cholecystectomy Previous section Family History Mother Hypertension Breast cancer, Onset Age: 73 Father No problems noted. Social History Household Members: Spouse and Children Housing: House Alcohol intake: never Patient Tobacco Use Status: Never used Tobacco e-Cigarette/Vaping Use: Never Used Second Hand Smoke Exposure: No service: No Current occupational status: disabled Sexual orientation: Straight/Heterosexual Gender identity: Female Cognitive needs: No Hearing needs: No Vision needs: Yes (reading glasses) Female Reproductive History Menstrual Age of Menarche: 15 Review of Systems Const All systems reviewed & are unremarkable except as noted in HPI and below Reports headache(s) (MILD OCCASIONAL ) Eyes Reports no additional complaints ENT Reports headache(s) (MILD OCCASIONAL ) and Reports nasal congestion (MILD OFF AND ON ) Card Denies chest pain, Denies irregular heart rhythm and Denies leg edema Resp Reports as per HPI GI Denies abdominal pain and Reports heartburn (CONTROLLED WITH MED ) Musc Reports back pain and Reports arthralgias (FIBROMYALGIA ) Skin/Breast Reports system reviewed and no additional complaints, except as documented Neuro Reports headache(s) (MILD OCCASIONAL ) Psych Reports depression (CONTROLLED ) Physical Exam Vital Signs: Last Vital Signs Pulse 92 01/23/24 11:32 BP 130/72 01/23/24 11:32 Pulse Ox 97 01/23/24 11:32 Oxygen Delivery Method Room Air 01/23/24 11:32 BMI result Body Mass Index 26.9 Const General: healthy appearing, comfortable, no acute distress, alert and awake Orientation/consciousness: patient oriented x3 HEENT Head: Yes normal to inspection General nose exam: No nasal polyps present and No nasal discharge present Face and sinus: Yes sinuses nontender Mouth: oropharynx normal Throat: Yes posterior oropharynx normal Eyes General: appearance normal, both eyes and all related structures Neck Neck: Yes normal visual inspection, Yes no lymphadenopathy, Yes trachea midline and Yes no JVD Thyroid: Thyroid normal Chest Chest palpation & inspection: normal inspection of the chest, normal palpation of entire chest wall and no tenderness Resp Other: Percussion note resonant, both lungs are very clear, no wheezes rhonchi or crepitations are heard. Cardio Palpation: normal PMI Rate: regular rate Rhythm: regular rhythm Heart sounds: no gallops and no murmurs Peripheral pulses: Peripheral pulses 2+ throughout GI Palpation (GI): Soft to palpation, nontender, No hepatosplenomegaly present and no masses Auscultation: normal bowel sounds Back/Spine/Pelvis Thoracic/Lumbar Spine: thoracic and lumbar spine normal to inspection Skin General skin exam: no rashes or lesions noted Neuro General: patient oriented x3 and no focal motor deficits Cranial nerves: Yes CN's II-XII intact bilaterally Extrem General: Yes normal to inspection, Yes no clubbing, cyanosis or edema and Yes no calf tenderness Psych Appearance: grossly normal and well kempt Speech and movement: Normal speech and movement present Assessment & Plan Assessment & Plan (1) Asthma: Comment: Chronic bronchial Asthma,mild intermittent , remains well controlled. Code(s): J45.909 - Unspecified asthma, uncomplicated Category: Medical Plan: TX : Use VENTOLIN 2 puffs Q 4-6 hours only p.r.n. I ADVISED HER THAT SHE SHOULD CONTINUE TO FOLLOW-UP WITH THE PRIMARY CARE PHYSICIAN AND REALLY DOES NOT NEED FOLLOW-UP IN THE PULMONARY OFFICE Medications: Changed From albuterol sulfate 90 mcg/actuation (Ventolin HFA) 2 puffs PO Q4-6H PRN 18 ea 1RF for wheezing To albuterol sulfate 90 mcg/actuation (Ventolin HFA) 2 puffs PO Q4-6H 30 days PRN 18 ea 4RF for wheezing Coding Level of Care Code Est Pt Level 3 (24979) Diagnoses Asthma J45.909
== END 2024-01-23 13:48 | disposition home or self-care (01) ==
LOC: HO.HPS 11:18
PROVIDERS: PCP Internal Medicine; Visit Provider Internal Medicine
DX: J45.909 Unspecified asthma, uncomplicated (principal)
CPT/HCPCS: 99213

== ENCOUNTER → 2024-01-23 11:17 | Outpatient (BNVA) | payer OTHER, SELFPAY | PROVIDERS: PCP Internal Medicine; Visit Provider Internal Medicine | DX: J45.909 Unspecified asthma, uncomplicated (principal) | CPT/HCPCS: 99212 ==

== ENCOUNTER 2024-03-16 13:45 | Outpatient (REF) | payer OTHER, SELFPAY | END 2024-03-16 13:46 | disposition home or self-care (01) | LOC: HO.LAB 13:45 | PROVIDERS: PCP Internal Medicine; Visit Provider Nurse Practitioner Family | DX: K21.9 Gastro-esophageal reflux disease without esophagitis (principal); R13.10 Dysphagia, unspecified; K20.90 Esophagitis, unspecified without bleeding | CPT/HCPCS: 36415; 86003; 99212 ==

== ENCOUNTER 2024-03-16 13:45 | Outpatient (AMB) | payer OTHER, SELFPAY ==
[2024-03-16 13:50] VITALS: BP 126/74; PULSE 88; O2SAT 96; BMI 27.1
--- NOTE | 2024-03-16 13:50 | MHC.OFFVIS ---
Vital Signs 03/16/24 13:50 Height 5 ft 1 in Weight 143 lb 4.807 oz BMI 27.1 BP 126/74 Blood Pressure Location Rt brachial Position Sitting Pulse 88 Pulse Source Pulse Oximeter Pulse Oximetry (%) 96 Oxygen Delivery Method Room Air Intake Visit Reasons: 3 mos FUV. Intake Note: ESTABLISHED PATIENT Stephanie presents in office today for a scheduled 3 mos FUV. Meds and Allergies reviewed? Y No recent or relevant surgeries? N Any significant concerns or new changes? Pt would like to discuss polyps in greater detail as well as H Pylori results. Pharmacy verified? [facility] [employer] Cataloging Technician Required: No Allergies No Known Allergies Allergy (Verified 03/16/24 13:50) HPI HPI 3 mos FUV.: Details: LAST VISIT: Tubular adenoma Diverticulosis GERD (gastroesophageal reflux disease) Status post colonoscopy Plan Patient will return in 2 weeks for H pylori breath test. Off PPI for 2 weeks and off H2 leslee for 24-48 hours before the test. Patient will change the omeprazole to taking in the morning. Patient was encouraged to avoid dietary triggers and late night snacking. Staying upright for minimum 3 hours after meals discussed with patient. Continue taking Senokot on as needed basis. Increase fluid intake and activity to promote better bowel motility. Patient will follow-up in the office in 3 months, sooner on as needed basis. She is agreeable to this plan and verbalizes understanding of instructions. She was given the opportunity to ask questions and all questions answered. ? Thank you for allowing me to participate in her care Orders Orders H Pylori Breath Test Today K21.9 Medications New omeprazole 20 mg PO DAILY 30 caps 3RF K21.9 Refilled famotidine 40 mg PO BEDTIME 90 tabs 3RF K21.9 Discontinued pantoprazole take one tablet half an hour before breakfast Discontinued Reason: Doctor's Order 40 mg PO DAILY 30 tabs 2RF K21.9 sucralfate Discontinued Reason: Doctor's Order 1 g PO BEDTIME 30 tabs 4RF R19.7 TODAY'S VISIT: Patient is here today for follow-up. Patient reports that she still has acid reflux and sometimes bad taste in her mouth. Patient reports that she feels like she has a yeast infection in her mouth. Patient has not noticed any white patches in her mouth or her throat. Patient reports occasional dysphagia without odynophagia. Currently patient is taking omeprazole 20 mg in the morning and famotidine at bedtime. H pylori test was negative we discussed that. Patient states that she is avoiding dietary triggers. Concerned that she might have some food allergies. Patient denies any nausea or vomiting. Patient denies melena, hematochezia, unintentional weight loss or ribbon like stools. Patient reports that she is moving her bowels well without any issues. [facility] Medical History Esophageal candidiasis Tubulovillous adenoma Tubular adenoma Diverticulosis Normocytic anemia Asthma Mild recurrent major depression Insomnia Pure hypercholesterolemia Hypovitaminosis D Osteoarthritis of right knee B12 deficiency Allergic rhinitis Right knee pain Lumbar pain Pelvic pain Overweight Microcytic anemia Depression with anxiety Fibromyalgia GERD (gastroesophageal reflux disease) Asthma Surgical History History of esophagogastroduodenoscopy (EGD) Hx of colonoscopy History of total right hip replacement Hx laparoscopic cholecystectomy Previous section Family History Mother Hypertension Breast cancer, Onset Age: 73 Father No problems noted. Social History Household Members: Spouse and Children Housing: House Alcohol intake: never Patient Tobacco Use Status: Never used Tobacco e-Cigarette/Vaping Use: Never Used Second Hand Smoke Exposure: No service: No Current occupational status: disabled Sexual orientation: Straight/Heterosexual Gender identity: Female Cognitive needs: No Hearing needs: No Vision needs: Yes (reading glasses) Female Reproductive History Menstrual Age of Menarche: 15 Physical Exam Vital Signs: Last Vital Signs Pulse 88 03/16/24 13:50 BP 126/74 03/16/24 13:50 Pulse Ox 96 03/16/24 13:50 Oxygen Delivery Method Room Air 03/16/24 13:50 BMI result Body Mass Index 27.1 Results Reviewed Results Reviewed: Laboratory Tests 12/30/23 11:56 H. pylori Breath Test Negative Assessment & Plan Assessment & Plan (1) Tubular adenoma: Code(s): D36.9 - Benign neoplasm, unspecified site Category: Medical (2) Diverticulosis: Code(s): K57.90 - Diverticulosis of intestine, part unspecified, without perforation or abscess without bleeding Category: Medical (3) GERD (gastroesophageal reflux disease): Code(s): K21.9 - Gastro-esophageal reflux disease without esophagitis Category: Medical Qualifiers: Esophagitis presence: esophagitis presence not specified Qualified Code(s): K21.9 - Gastro-esophageal reflux disease without esophagitis (4) Status post colonoscopy: Code(s): Z98.890 - Other specified postprocedural states (5) Dysphagia: Code(s): R13.10 - Dysphagia, unspecified Category: Medical Qualifiers: Dysphagia type: oropharyngeal phase Qualified Code(s): R13.12 - Dysphagia, oropharyngeal phase Plan Patient reports that she is not taking any corticosteroid inhalers. Will give her script for nystatin. Will send her to get RAST allergen test. Will increase omeprazole to 40 mg daily. Continue famotidine at bedtime. Avoid dietary triggers and late night snacking. Staying upright for minimum 3 hours after meals discussed with patient. Continue Senokot daily. Increase fluid intake and activity to promote better bowel motility. Patient will return in 2 months. Patient will call our office if she will have worsening symptoms or any other GI concerning symptoms. She is agreeable to this plan and verbalizes understanding of instructions. She was given the opportunity to ask questions and all questions answered. Thank you for allowing me to participate in her care Orders: Orders Rast Allergen 03/16/24 K21.9 - Gastro-esophageal reflux disease without esophagitis Medications: New nystatin swish and swallow 4 mL PO TID 120 mL 0RF 10 days omeprazole 40 mg PO DAILY 30 caps 3RF K21.9 - Gastro-esophageal reflux disease without esophagitis Discontinued omeprazole Discontinued Reason: Doctor's Order 20 mg PO DAILY 90 caps 1RF K21.9 - Gastro-esophageal reflux disease without esophagitis Coding Level of Care Code Est Pt Level 4 (53833) Diagnoses Tubular adenoma D36.9 Diverticulosis K57.90 Gastroesophageal reflux disease, unspecified whether esophagitis present K21.9 Esophagitis presence: esophagitis presence not specified Status post colonoscopy Z98.890 Oropharyngeal dysphagia R13.12 Dysphagia type: oropharyngeal phase Time Spent (min) 35 Comment 20 minutes spent with patient and additional 15 minutes spent reviewing her records
== END 2024-03-16 14:28 | disposition home or self-care (01) ==
PROVIDERS: PCP Internal Medicine; Visit Provider Nurse Practitioner Family
DX: D36.9 Benign neoplasm, unspecified site (principal); K57.90 Diverticulosis of intestine, part unspecified, without perforation or abscess without bleeding; K21.9 Gastro-esophageal reflux disease without esophagitis; Z98.890 Other specified postprocedural states; R13.12 Dysphagia, oropharyngeal phase
CPT/HCPCS: 99214

== ENCOUNTER 2024-04-05 13:21 | Outpatient (AMB) | payer OTHER, SELFPAY ==
[2024-04-05 13:24] VITALS: BP 112/70; BMI 26.4
--- NOTE | 2024-04-05 13:24 | A.OFFPC_ITS ---
Vital Signs 04/05/24 13:24 Height 5 ft 1 in Weight 140 lb BMI 26.4 BP 112/70 Blood Pressure Location Lt brachial Position Sitting Intake Visit Reasons: depression Intake Note: Patient here for a follow up Depression, admitted to [facility] 04/02/24 right side weakness, c/o possible sinus infection Certified Drug Counselor Required: No Accompanied by: Self / Same As Patient Allergies No Known Allergies Allergy (Verified 04/05/24 13:43) Medication List - Last Reconciled 04/05/24 by Susannah Manzo MD albuterol sulfate 90 mcg/actuation (Ventolin HFA) 2 puffs PO Q4-6H PRN 30 days amitriptyline 150 mg (1.5 x 100 mg) PO BEDTIME 90 days aspirin (Adult Low Dose Aspirin) 81 mg PO DAILY atorvastatin 80 mg PO BEDTIME blood pressure monitor As directed cetirizine 10 mg PO DAILY cholecalciferol (vitamin D3) 25 mcg PO DAILY 90 days clonazepam 0.5 mg PO TID famotidine 40 mg PO BEDTIME folic acid 1 mg PO DAILY 90 days gabapentin 300 mg PO TID PRN nystatin 4 mL PO TID 10 days omeprazole 40 mg PO DAILY sennosides (Natural Senna Laxative) 17.2 mg (2 x 8.6 mg) PO BEDTIME trazodone 150 mg PO BEDTIME 90 days tretinoin 0.05% appl topical Tobacco use date assessed: 04/05/24 Dental Screening Dental Screen Date: 04/05/24 Did you have a dental visit in the last 12 months?: No Did you have a dental problem in the last 6 months where you did not have access to dental care?: No Was dental information given to patient?: Patient has dentist HPI HPI Comments History of Present Illness Details The patient is a 59-year-old female presenting with transient right upper extremity weakness. She reports an acute episode that began on Tuesday morning when she was unable to properly hold a cup due to involuntary hand movements and weakness, although there was no numbness or complete loss of function (no drop occurred). She went to the hospital on the same day, where initial imaging via CT scan and blood work was conducted. The CT scan showed the presence of carotid atherosclerotic plaque, while labs indicated hypokalemia with a potassium level of 3.2 mmol/L. By Tuesday night, while still under ob servation in the hospital, she noted a partial return of strength in her right hand and was able to make a fist. No transient ischemic attack was detected, and the symptoms were categorized as transitional weakness. Other chronic conditions mentioned include depression, anxiety, neuropathy, gastroesophageal reflux disease, and constipation. Prior treatments and management include aspirin, folic acid, gabapentin, amitriptyline, trazodone, loratadine for allergies, vitamin D, clonazepam for anxiety, famotidine for heartburn, and nystatin, omeprazole, and CELESTINO for constipation. Follows with psychiatry for her depression with anxiety. [facility] Medical History (Updated 04/05/24 @ 15:40 by Suasnnah Manzo MD) Moderate major depression Esophageal candidiasis Tubulovillous adenoma Tubular adenoma Diverticulosis Normocytic anemia Asthma Mild recurrent major depression Insomnia Pure hypercholesterolemia Hypovitaminosis D Osteoarthritis of right knee B12 deficiency Allergic rhinitis Right knee pain Lumbar pain Pelvic pain Overweight Microcytic anemia Depression with anxiety Fibromyalgia GERD (gastroesophageal reflux disease) Asthma Surgical History History of esophagogastroduodenoscopy (EGD) Hx of colonoscopy History of total right hip replacement Hx laparoscopic cholecystectomy Previous section Family History Mother Hypertension Breast cancer, Onset Age: 73 Father No problems noted. Social History Household Members: Spouse and Children Housing: House Alcohol intake: never Patient Tobacco Use Status: Never used Tobacco e-Cigarette/Vaping Use: Never Used Second Hand Smoke Exposure: No service: No Current occupational status: disabled Sexual orientation: Straight/Heterosexual Gender identity: Female Cognitive needs: No Hearing needs: No Vision needs: Yes (reading glasses) Female Reproductive History Menstrual Age of Menarche: 15 Questionnaire PHQ-9 Over the last 2 weeks, how often have you been bothered by any of the following problems? 1. Little interest or pleasure in doing things: nearly every day 2. Feeling down, depressed, or hopeless: more than half the days 3. Trouble falling or staying asleep, or sleeping too much: more than half the days 4. Feeling tired or having little energy: nearly every day 5. Poor appetite or overeating: more than half the days 6. Feeling bad about yourself - or that you are a failure or have let yourself or your family down: more than half the days 7. Trouble concentrating on things, such as reading the newspaper or watching television: several days 8. Moving or speaking so slowly that other people could have noticed. Or the opposite - being so fidgety or restless that you have been moving around a lot more than usual: not at all 9. Thoughts that you would be better off or of hurting yourself in some way: not at all Total score: 15 Depression Screening Interpretation: Positive (no suicidal thoughts) Depression Screening Follow-up: Existing condition, In treatment and Follow-up Visit Requested Depression Screening Done: Yes 96672 - PHQ-9 Billing: Yes Source: Developed by Drs. Abiodun Yates, Adri Schmitt, Ethan Medina and colleagues, with an educational javier from [employer]. Thrive Questionnaire Date Thrive assessed: 04/05/24 I am a: Patient What is your living situation today?: I have a steady place to live Within the past 12 months, did the food you bought not last and you didn't have the money to get more?: Never true Within the past 12 months, did you worry whether your food would run out before you got money to buy more?: Never true Do you have trouble paying for medicines?: No Do you have trouble getting transportation to medical appointments?: No Do you have trouble paying your heating and electricity bill?: No Do you have trouble taking care of your child, family member or friend?: No Do you have trouble with day-to-day activities such as bathing, preparing meals, shopping, managing finances, etc.?: No Are you currently unemployed and looking for a job?: No Are you interested in more education?: No Please select the resources that you would like help with: None THRIVE Score: 0 AUDIT C Alcohol Use Questionnaire (AUDIT-C) 1. How often do you have a drink containing alcohol?: Never Total Score: 0 Score Reviewed/Action Taken: No JOSE-7 AMB Questionnaire JOSE-7 Date JOSE - 7 assessed: 04/05/24 Feeling nervous, anxious, or on edge: 2 = More than half the days Not being able to stop or control worryin = Several days Worrying too much about different things: 2 = More than half the days Trouble relaxin = More than half the days Being so restless that it is hard to sit still: 0 = Not at all Becoming easily annoyed or irritable: 1 = Several days Feeling afraid as if something awful might happen: 0 = Not at all Total JOSE-7 score (0-4 normal; 5-9 mild; 10-14 moderate; 15-21 severe): 8 Source: Developed by Drs. Abiodun Yates, Adri Schmitt, Ethan Medina and colleagues, with an educational javier from [employer]. JOSE-7 Assessment Billing JOSE-7 Assessment Tool: JOSE-7 Assessment 27263 Review of Systems Const All systems reviewed & are unremarkable except as noted in HPI and below Card Denies chest pain at rest, Denies chest pain with activity, Denies edema, Denies irregular heart rhythm, Denies claudication, Denies dyspnea, Denies dyspnea on exertion, Denies orthopnea, Denies paroxysmal nocturnal dyspnea and Denies slow heart rate Resp Denies cough, Denies dyspnea and Denies dyspnea on exertion GI Denies abdominal pain, Denies change in bowel habits, Denies excessive flatus, Denies nausea and Denies vomiting Physical exam (Primary Care) Vital Signs: Last Vital Signs BP 112/70 04/05/24 13:24 BMI result Body Mass Index 26.4 Tobacco/Smoking Status: Tobacco use Status Tobacco use date assessed 04/05/24 04/05/24 13:30 Patient Tobacco Use Status Never used Tobacco 04/05/24 13:26 e-Cigarette/Vaping Use Never Used 04/05/24 13:26 PHQ-9: PHQ-9 Score PHQ-9: Total score 15 04/05/24 13:47 Depression Screening Interpretation: Positive (no suicidal thoughts) Depression Screening Follow-up: Existing condition, In treatment and Follow-up Visit Requested Thrive Assessment: Date of Thrive Assessment Date Thrive assessed 04/05/24 04/05/24 13:30 Resp Effort & Inspection: normal respiratory effort Auscultation: clear to auscultation bilaterally Cardio Jugular venous distension: no JVD Rate: regular rate Rhythm: regular rhythm Heart sounds: S1 normal heart sound present and S2 normal heart sound present Extrem General: Yes full ROM Coding Level of Care Code Est Pt Level 4 (43204) Complex EM visit Add On G2211 Diagnoses Mild recurrent major depression F33.0 Gastroesophageal reflux disease, unspecified whether esophagitis present K21.9 Esophagitis presence: esophagitis presence not specified Asthma J45.909 Allergic rhinitis J30.9 JOSE (generalized anxiety disorder) F41.1 Additional Codes JOSE-7 Assessment Billing - JOSE-7 Assessment Tool: JOSE-7 Assessment 58739 ([id number]) PHQ-9 - 58667 - PHQ-9 Billing: Yes ([id number]) Time Spent (min) 23 Assessment & Plan Assessment & Plan (1) Mild recurrent major depression: Code(s): F33.0 - Major depressive disorder, recurrent, mild Category: Medical (2) GERD (gastroesophageal reflux disease): Code(s): K21.9 - Gastro-esophageal reflux disease without esophagitis Category: Medical Qualifiers: Esophagitis presence: esophagitis presence not specified Qualified Code(s): K21.9 - Gastro-esophageal reflux disease without esophagitis (3) Asthma: Comment: BRONCHIAL ASTHMA, MILD, INTERMITTENT. CONTROLLED WITH CURRENT REGIMEN. Code(s): J45.909 - Unspecified asthma, uncomplicated Category: Medical (4) Allergic rhinitis: Comment: She has chronic allergic rhinitis, it is mild, Advised to use Flonase 2 spray in each nostril but only p.r.n. Code(s): J30.9 - Allergic rhinitis, unspecified Category: Medical (5) JOSE (generalized anxiety disorder): Code(s): F41.1 - Generalized anxiety disorder Category: Medical Plan - Continue aspirin therapy for cardiovascular protection. - Initiate atorvastatin 10 mg after completion of current 80 mg dosage to manage carotid atherosclerotic plaque. - Monitor potassium levels and consider potassium supplementation if hypokalemia persists. - Continue current medication regimen for depression, anxiety, neuropathy, GERD, and constipation with monitoring for efficacy and side effects. Patient was informed and verbally consented to the use of an ambient scribe for clinic note documentation during this visit. During today's visit, we discussed the management of her transient right upper extremity weakness, which did not qualify as a transient ischemic attack but was still concerning. I recommended starting atorvastatin 10 mg after completing the current dosage to address atherosclerotic changes, highlighting the importance of lipid management given her risk profile. We reviewed her current medications, adjusting as necessary, and discussed maintaining her on aspirin for cardiovascular risk reduction. The importance of monitoring potassium levels was emphasized due to her recent hypokalemia. She consented to continue her treatment regimen and to follow up as scheduled for further evaluations. Medications: New atorvastatin 10 mg PO BEDTIME 90 tabs 1RF 90 days Refilled cetirizine 10 mg PO DAILY 90 tabs 1RF for allergies J01.90 - Acute sinusitis, unspecified Patient Instructions: - Take atorvastatin 80 mg as prescribed until completion; then reduce to 10 mg. - Continue aspirin daily for cardiovascular protection. - Monitor potassium intake through diet, or as guided by subsequent lab results. - Continue all current medications as discussed, noting any changes in symptoms. - Attend follow-up appointment in May for physical examination and further screenings. - Seek immediate medical care if recurrence of symptoms or new concerning symptoms arise.
== END 2024-04-05 13:54 | disposition home or self-care (01) ==
PROVIDERS: PCP Internal Medicine; Visit Provider Internal Medicine
DX: F33.0 Major depressive disorder, recurrent, mild (principal); K21.9 Gastro-esophageal reflux disease without esophagitis; J45.909 Unspecified asthma, uncomplicated; J30.9 Allergic rhinitis, unspecified; F41.1 Generalized anxiety disorder

== ENCOUNTER → 2024-04-05 13:21 | Outpatient (BNVA) | payer OTHER, SELFPAY | PROVIDERS: PCP Internal Medicine; Visit Provider Internal Medicine | DX: F33.0 Major depressive disorder, recurrent, mild (principal); K21.9 Gastro-esophageal reflux disease without esophagitis; J45.909 Unspecified asthma, uncomplicated; F41.1 Generalized anxiety disorder | CPT/HCPCS: 96127; 99212 ==

== ENCOUNTER 2024-04-20 11:44 | Outpatient (AMB) | payer OTHER, SELFPAY ==
--- NOTE | 2024-04-20 12:05 | AM.OFFWIN_ITS ---
Intake Vital Signs 04/20/24 12:11 Weight 141 lb 4 oz BP 118/72 Blood Pressure Location Rt brachial Position Sitting Pulse 97 Pulse Source Pulse Oximeter Temp 98.8 F Temp Source Oral Pulse Oximetry (%) 97 Oxygen Delivery Method Room Air Intake Visit Reasons: EP-sinus infection Intake Note: Patient here for sinus infection that has been present for about 2 months now. Patient Tobacco Use Status: Never used Tobacco Allergies No Known Allergies Allergy (Verified 04/20/24 12:12) Do you need a note to return to daycare/school/sports/work: No HPI HPI Comments History of Present Illness Details This is a 59-year-old female who presented to the walk-in clinic complaining of worsening sinus pain/pressure, sinus congestion, and headache x 1 week in the setting of persistent sinus pain/pressure x2 months. She states she first developed sinus pain, pressure, congestion, and headache about 2 months ago but these symptoms have worsened in the past 1 week to the point where she is unable to tolerate them anymore. She denies any fever/chills. She does report some mild rhinorrhea with clear nasal discharge. She also reports a mild sore throat and cough due to postnasal drip. Patient has been using nufe-gyp-mufrzgn sinus pain/pressure medication without significant relief. [facility] Medical History (Updated 04/05/24 @ 15:40 by Susannah Manzo MD) Moderate major depression Esophageal candidiasis Tubulovillous adenoma Tubular adenoma Diverticulosis Normocytic anemia Asthma Mild recurrent major depression Insomnia Pure hypercholesterolemia Hypovitaminosis D Osteoarthritis of right knee B12 deficiency Allergic rhinitis Right knee pain Lumbar pain Pelvic pain Overweight Microcytic anemia Depression with anxiety Fibromyalgia GERD (gastroesophageal reflux disease) Asthma Surgical History History of esophagogastroduodenoscopy (EGD) Hx of colonoscopy History of total right hip replacement Hx laparoscopic cholecystectomy Previous section Family History Mother Hypertension Breast cancer, Onset Age: 73 Father No problems noted. Social History Household Members: Spouse and Children Housing: House Alcohol intake: never Patient Tobacco Use Status: Never used Tobacco e-Cigarette/Vaping Use: Never Used Second Hand Smoke Exposure: No service: No Current occupational status: disabled Sexual orientation: Straight/Heterosexual Gender identity: Female Cognitive needs: No Hearing needs: No Vision needs: Yes (reading glasses) Female Reproductive History Menstrual Age of Menarche: 15 Review of Systems Const All systems reviewed & are unremarkable except as noted in HPI and below Reports no additional complaints Eyes Reports no additional complaints ENT Reports no additional complaints Card Reports no additional complaints Resp Reports no additional complaints GI Reports no additional complaints Reports no additional complaints Musc Reports no additional complaints Skin/Breast Reports system reviewed and no additional complaints, except as documented Neuro Reports no additional complaints Psych Reports no additional complaints Endo Reports no additional complaints Sg/Lymph Reports no additional complaints Aller/Immun Reports no additional complaints Physical Exam Vital Signs: Last Vital Signs Temp 98.8 F 04/20/24 12:11 Pulse 97 04/20/24 12:11 BP 118/72 04/20/24 12:11 Pulse Ox 97 04/20/24 12:11 Oxygen Delivery Method Room Air 04/20/24 12:11 Const Other: Vital signs reviewed. Constitutional: Non-toxic appearing. No acute distress. Well-developed and well-nourished. HEENT: Normocephalic and atraumatic. Tympanic membranes without erythema, edema, or bulging bilaterally. External auditory canals without erythema or edema bilaterally. Moist mucous membranes. Mild posterior pharyngeal erythema. Skin: Warm and dry. No rashes or lesions noted. Neck: Full and painless range of motion. No cervical lymphadenopathy. Cardio: Regular rate and rhythm. No murmurs, gallops, or rubs. No lower extremity edema. No JVD. Pulmonary: No respiratory distress. No accessory muscle usage. Clear to auscultation bilaterally without wheezing, crackles, or rhonchi. Gastrointestinal: Soft, nontender, and nondistended in all 4 quadrants. Musculoskeletal: Normal range of motion in joints throughout the body. No deformity or other signs of injury. Neuro: Alert and oriented x4. Cranial nerves 2-12 grossly intact. No focal deficits appreciated. Psych: Normal mood and affect. Assessment & Plan Assessment & Plan (1) Sinusitis, acute: Code(s): J01.90 - Acute sinusitis, unspecified Qualifiers: Sinusitis location: frontal Recurrence: not specified as recurrent Qualified Code(s): J01.10 - Acute frontal sinusitis, unspecified Plan: This is a 59-year-old female who presented to the walk-in clinic complaining of worsening sinus pain/congestion/pressure, and headache x1 week and setting of persistent sinus pain/congestion x 2 months. Recommended symptomatic management including normal saline nasal spray, auda-ggb-pjftvco decongestants including guaifenesin, and humidification at nighttime. She was also given a prescription for p.o. azithromycin 500 mg today followed by 250 mg daily x4 days. Patient was advised to follow-up here for persistent or worsening symptoms. Patient verbalized understanding is in agreement with the plan. Medications: New azithromycin For 250 mg dose pack: take 500 mg today (day 1), then 250 mg for 4 days (days 2-5) PO 6 tabs 0RF Coding Level of Care Code Est Pt Level 3 (28853) Diagnoses Acute frontal sinusitis, recurrence not specified J01.10 Sinusitis location: frontal Recurrence: not specified as recurrent
[2024-04-20 12:11] VITALS: BP 118/72; PULSE 97; TEMP 37.1; O2SAT 97
--- OUTSIDE RECORDS SUMMARY | 2024-04-20 12:24 | XMS_ITS | Clinical Summary ---
Author Organization [facility] Address [address] [place] [address] Phone Care Team Providers Care Fire Alarm Technician Name Role Phone Unavailable Primary Care Provider Unavailabl e Social History Tobacco Use Types Packs/Day Years Used Date Smoking Tobacco: Never Assessed Comments Unknown Sex and Gender Information Value Date Recorded Sex Assigned at Not on file Legal Sex Female 3:57 PM EDT Gender Identity Not on file Sexual Orientation Not on file Plan of Treatment Health Maintenance Due Date Last Done Comments MMR Vaccines (1 of 1 - Stand paolo series) 01/07/1968 Varicella Vaccines (1 of 2 - 13+ 2-dose series) 01/07/1980 DTaP,Tdap,and Td Vaccines (1 - Tdap) 1985 Hepatitis B Vaccines (1 of 3 - 19+ 3-dose series) 1986 Influenza Vaccines (#1) 2023 COVID-19 Vaccine (2023-2 5 season) 2023 HIB Vaccines Aged Out No longer eligi ble based on patient's age to complete this topic HPV Vaccines Aged Out No longer eligi ble based on patient's age to complete this topic Hepatitis A Vaccines Aged Out No long er eligible based on patient's age to complete this topic IPV Vaccines Aged Out No longer eligi ble based on patient's age to complete this topic Men B Vaccine Aged Out No longer elig ible based on patient's age to complete this topic Meningococcal Vaccine Aged Out No mary stacy eligible based on patient's age to complete this topic Pneumococcal Vaccine Aged Out No long er eligible based on patient's age to complete this topic
--- OUTSIDE RECORDS SUMMARY | 2024-04-20 12:24 | XMS_ITS | Clinical Summary ---
Author Organization [facility] Address [address] [place] [address] Care Team Providers Care Laborer Laboratory Name Role Phone Unavailable Primary Care Provider Unavailabl e Source Comments PLEASE NOTE, if this patient is a minor, it may be UNLAWFUL to discuss sensitive information that is contained in these records (such as FAMILY PLANNING, MENTAL HEALTH or SUBSTANCE ABUSE) with the minor patient's parent or other person without the patient's specific authorization.[facility] Immunizations Name Administration Dates Next Due PFIZER COVID VACCINE, PURPLE CAP, 12+ 02/23/2021 Pfizer-BioNTech COVID-19 Vac cine Bivalent, (LÓPEZ PFIZER-BIONTECH COVID-19 VACCINE BIVALENT, (LÓPEZ CAP 12/09/2021 Social History Tobacco Use Types Packs/Day Years Used Date Smoking Tobacco: Never Assessed Social Connections Answer Date Recorded Social Connections and Isolation 0 08/28/2021 Financial Resource Strain Answer Date R ecorded Financial Resource Strain 0 2021 Stress Answer Date Recorded Stress 0 08/28/2021 Physical Activity Answer Date Recorded Physical Activity 0 08/28/2021 Food Insecurity Answer Date Recorded Food 0 08/28/2021 Transportation Needs Answer Date Record ed Transportation 0 08/28/2021 Housing Stability Answer Date Recorded Housing 0 08/28/2021 Safety and Environment Answer Date Hollis rded Safety 0 08/28/2021 Utilities Answer Date Recorded Utilities 0 08/28/2021 Employment Answer Date Recorded Employment 0 08/28/2021 Comments Unknown Sex and Gender Information Value Date Recorded Sex Assigned at Female 12/09/2021 7:45 AM PDT Legal Sex Female 8:29 AM PST Gender Identity Female 12/09/2021 7:45 AM PDT Sexual Orientation Straight 12/09/2021 7: 45 AM PDT Plan of Treatment Health Maintenance Due Date Last Done Comments Diabetes Screening 1967 HPV Screening 1967 Hepatitis C Screening 1967 Lipid Screening 1967 Pap + HPV 1967 Tobacco Screening 1967 HIV Screening 1982 Annual Preventive Care Visit 1985 Hypertension Screening (#1) 1985 Imm-DTaP/Tdap/Td (1 - Tdap) 1986 Imm-Hepatitis B (1 of 3 - 19 + 3-dose series) 1986 Cervical Cancer Screening 01/07/1988 Pap Smear 01/07/1988 Breast Cancer Screening (Mammogram) 2007 CT Colonography 01/07/2012 Colonoscopy 01/07/2012 Colorectal Cancer Screening 01/07/2012 FIT/gFOBT 01/07/2012 Fecal DNA 01/07/2012 Flexible Sigmoidoscopy 01/07/2012 Imm-Zoster, Recombinant (2 of 2) 10/24/2021 08/30/19 22 [id number] ( season) 2023 12/09/2021, 02/23/2021, 08/01/2020, Additional history exists Imm-Influenza (#1) 2023 12/26/2020, 0 11/23/2019, 12/25/2018, Additional history exists Alcohol and Drug Screen 03/21/2024 Depression Annual Screen 03/21/2024 Cervical Ablation/Cold-Knife Conization Discontinued Cervical Cryotherapy Discontinued Colposcopy Discontinued Endometrial Biopsy Discontinued Excision/Leep Discontinued HPV Genotyping Discontinued Vaginal Pap Discontinued Vulvoscopy Discontinued Insurance [facility] [employer] Member Subscriber Plan / Payer (Ef fective 2020-Present) Name:Stephanie Cornejo Relation to Subscriber:Self Name:Stephanie Cornejo Payer ID:[id number] Group ID:[id number] Type:Medicaid Address: [facility] [address] [place] [address]
== END 2024-04-20 12:55 | disposition home or self-care (01) ==
PROVIDERS: PCP Internal Medicine; Visit Provider Physician Assistant Medical
DX: J01.10 Acute frontal sinusitis, unspecified (principal)

== ENCOUNTER 2024-05-15 13:05 | Outpatient (AMB) | payer OTHER, SELFPAY ==
--- NOTE | 2024-05-15 13:05 | A.OFFVIS_ITS ---
Vital Signs 05/15/24 13:06 Height 5 ft 1 in Weight 138 lb 0.15 oz BMI 26.1 BP 150/84 H Blood Pressure Location Rt brachial Position Sitting Pulse 86 Pulse Source Pulse Oximeter Pulse Oximetry (%) 97 Oxygen Delivery Method Room Air Intake Visit Reasons: 2 mo f/u Intake Note: EST PATIENT for diverticulosis mgmt w/ constipation. Chief Complaint; C/O nocturnal GERD persistence. Pt states that GERD sx are controlled during the day but having to take tums at night. Only taking famotidine occasionally. Pt denies any additional concerns. Constipation well controlled with senna PRN. Operations Processor Required: No Accompanied by: Self / Same As Patient Allergies cat dander Allergy (Mild, Verified 06/05/24 13:34) unknown dog dander Allergy (Mild, Verified 06/05/24 13:34) unknown house dust mite Allergy (Mild, Verified 06/05/24 13:34) unknown peach Allergy (Mild, Verified 06/05/24 13:34) unknown shrimp Allergy (Mild, Verified 06/05/24 13:34) lip tingling scallops Allergy (Mild, Uncoded 06/05/24 13:34) unknown HPI HPI 2 mo f/u: Details: LAST VISIT: Tubular adenoma Diverticulosis GERD (gastroesophageal reflux disease) Status post colonoscopy Dysphagia Plan Patient reports that she is not taking any corticosteroid inhalers. Will give her script for nystatin. Will send her to get RAST allergen test. Will increase omeprazole to 40 mg daily. Continue famotidine at bedtime. Avoid dietary triggers and late night snacking. Staying upright for minimum 3 hours after meals discussed with patient. Continue Senokot daily. Increase fluid intake and activity to promote better bowel motility. Patient will return in 2 months. Patient will call our office if she will have worsening symptoms or any other GI concerning symptoms. She is agreeable to this plan and verbalizes understanding of instructions. She was given the opportunity to ask questions and all questions answered. ? Thank you for allowing me to participate in her care Orders Orders Rast Allergen 03/16/24 K21.9 Medications New nystatin swish and swallow 4 mL PO TID 120 mL 0RF 10 days omeprazole 40 mg PO DAILY 30 caps 3RF K21.9 Discontinued omeprazole Discontinued Reason: Doctor's Order 20 mg PO DAILY 90 caps 1RF K21.9 TODAY'S VISIT: Patient is here today for follow-up. Patient reports that she is taking omeprazole in the morning and her symptoms of acid reflux are suppressed throughout the day, however she occasionally will have acid reflux and epigastric pain during the night. Patient finished nystatin swish and swallow and no longer experiencing thrush in her mouth. Able to swallow without any difficulty. Patient is taking occasionally times during the night, not taking Pepcid. Patient reports that for the most part she is moving her bowels without any issues. Uses Senokot on as needed basis. Patient denies dyspepsia, dysphagia or odynophagia. Denies melena, hematochezia, unintentional weight her like stools. Patient reports that she is feeling significantly better than last appointment. [facility] Medical History Moderate major depression Esophageal candidiasis Tubulovillous adenoma Tubular adenoma Diverticulosis Normocytic anemia Asthma Mild recurrent major depression Insomnia Pure hypercholesterolemia Hypovitaminosis D Osteoarthritis of right knee B12 deficiency Allergic rhinitis Right knee pain Lumbar pain Pelvic pain Overweight Microcytic anemia Depression with anxiety Fibromyalgia GERD (gastroesophageal reflux disease) Asthma Surgical History (Updated 06/05/24 @ 13:08 by Susannah Manzo MD) History of esophagogastroduodenoscopy (EGD) Hx of colonoscopy History of total right hip replacement Hx laparoscopic cholecystectomy Previous section Family History Mother Hypertension Breast cancer, Onset Age: 73 Father No problems noted. Social History Household Members: Spouse and Children Housing: House Alcohol intake: never Patient Tobacco Use Status: Never used Tobacco Tobacco use type: Cigarette e-Cigarette/Vaping Use: Never Used Second Hand Smoke Exposure: No service: No Current occupational status: disabled Sexual orientation: Straight/Heterosexual Gender identity: Female Cognitive needs: No Hearing needs: No Vision needs: Yes (reading glasses) Female Reproductive History Menstrual Age of Menarche: 15 Review of Systems Const Denies weight gain and Denies weight loss ENT Reports no additional complaints, Denies dysphagia and Denies odynophagia Card Reports no additional complaints Resp Reports no additional complaints GI Reports abdominal pain (epigastric), Denies belching, Denies melena, Denies bloating, Denies change in bowel habits, Reports constipation (occasional, uses senna as needed), Denies dysphagia, Denies excessive flatus, Denies dyspepsia, Reports heartburn, Denies diarrhea, Denies loose stools, Denies nausea, Denies odynophagia and Denies vomiting Musc Reports no additional complaints Neuro Reports no additional complaints Psych Reports no additional complaints Endo Reports no additional complaints Physical Exam Vital Signs: Last Vital Signs Pulse 86 05/15/24 13:06 BP 150/84 H 05/15/24 13:06 Pulse Ox 97 05/15/24 13:06 Oxygen Delivery Method Room Air 05/15/24 13:06 BMI result Body Mass Index 26.1 Const General: healthy appearing, no acute distress and well developed Nutritional Appearance: well nourished Orientation/consciousness: patient oriented x3 Resp Effort & Inspection: normal respiratory effort, able to speak in complete sentences, no tracheal deviation and symmetric chest movement Auscultation: clear to auscultation bilaterally Cardio Rate: regular rate GI Inspection: Yes normal to inspection and No distended Palpation (GI): Soft to palpation, not firm, nontender and No hepatosplenomegaly present Auscultation: normal bowel sounds General: Yes no CVA tenderness Back/Spine/Pelvis Back: no CVA tenderness Skin General skin exam: elasticity normal, turgor normal and dry skin Neuro General: patient oriented x3 Psych Appearance: grossly normal Mental Status: mental status grossly normal Assessment & Plan Assessment & Plan (1) Tubular adenoma: Code(s): D36.9 - Benign neoplasm, unspecified site Category: Medical (2) Diverticulosis: Code(s): K57.90 - Diverticulosis of intestine, part unspecified, without perforation or abscess without bleeding Category: Medical (3) GERD (gastroesophageal reflux disease): Code(s): K21.9 - Gastro-esophageal reflux disease without esophagitis Category: Medical Qualifiers: Esophagitis presence: esophagitis presence not specified Qualified Code(s): K21.9 - Gastro-esophageal reflux disease without esophagitis (4) Dysphagia: Code(s): R13.10 - Dysphagia, unspecified Category: Medical Qualifiers: Dysphagia type: oropharyngeal phase Qualified Code(s): R13.12 - Dysphagia, oropharyngeal phase Plan Patient will continue taking omeprazole 40 mg in the morning. Avoid dietary triggers in late night snacking. Staying upright for minimal 3 hours after meals discussed with patient. Patient will take famotidine at bedtime. Patient was encouraged to take senna on more regular basis so she does not get constipated this might be the reason why she has acid reflux and epigastric pain. Discussed with patient the importance of feeling like she empty completely when she has a bowel movement. Patient will follow-up in 6 months. She will call our office if she will have any GI concerning symptoms. Patient is agreeable to current plan of care and verbalizes understanding of instructions. She was given the opportunity to ask questions and all questions answered. Thank you for allowing me to participate in her care Coding Level of Care Code Est Pt Level 4 (24680) Complex EM visit Add On G2211 Diagnoses Tubular adenoma D36.9 Diverticulosis K57.90 Gastroesophageal reflux disease, unspecified whether esophagitis present K21.9 Esophagitis presence: esophagitis presence not specified Oropharyngeal dysphagia R13.12 Dysphagia type: oropharyngeal phase Time Spent (min) 35 Comment 25 minutes spent with patient and additional 10 minutes spent reviewing her re cords
[2024-05-15 13:06] VITALS: BP 150/84; PULSE 86; O2SAT 97; BMI 26.1
--- OUTSIDE RECORDS SUMMARY | 2024-05-15 16:02 | XMS_ITS | Clinical Summary ---
Author Organization [facility] Address [address] [place] [address] Care Team Providers Care Loader Technician Name Role Phone Unavailable Primary Care [...] Recombinant (2 of 2) 10/24/2021 08/30/19 22 [id number] ( season) 2023 12/09/2021, 02/23/2021, 08/01/2020, Additional history exists Imm-Influenza (#1) 2023 12/26/2020, 0 11/23/2019, 12/25/2018, Additional history exists Alcohol and Drug Screen 03/21/2024 Depression Annual Screen 03/21/2024 Cervical Ablation/Cold-Knife Conization Discontinued Cervical Cryotherapy Discontinued Colposcopy Discontinued Endometrial Biopsy Discontinued Excision/Leep Discontinued HPV Genotyping Discontinued Vaginal Pap Discontinued Vulvoscopy Discontinued Insurance [facility] [employer] Member Subscriber Plan / Payer (Ef fective 2020-Present) Name:Stephanie Cornejo Relation to Subscriber:Self Name:Stephanie Cornejo Payer ID:[id number] Group ID:[id number] Type:Medicaid Address: [facility] [address] [place] [address]
--- OUTSIDE RECORDS SUMMARY | 2024-05-15 16:02 | XMS_ITS | Clinical Summary ---
Author Organization [facility] Address [address] [place] [address] Phone Care Team Providers Care Information Clerk Name Role Phone Unavailable Primary Care Provider [...]
== END 2024-05-15 13:30 | disposition home or self-care (01) ==
PROVIDERS: PCP Internal Medicine; Visit Provider Nurse Practitioner Family
DX: D36.9 Benign neoplasm, unspecified site (principal); K57.90 Diverticulosis of intestine, part unspecified, without perforation or abscess without bleeding; K21.9 Gastro-esophageal reflux disease without esophagitis; R13.12 Dysphagia, oropharyngeal phase
CPT/HCPCS: 99214; G2211

== ENCOUNTER → 2024-05-15 13:05 | Outpatient (BNVA) | payer OTHER, SELFPAY | PROVIDERS: PCP Internal Medicine; Visit Provider Nurse Practitioner Family | DX: K57.90 Diverticulosis of intestine, part unspecified, without perforation or abscess without bleeding (principal); K21.9 Gastro-esophageal reflux disease without esophagitis; D36.9 Benign neoplasm, unspecified site | CPT/HCPCS: 99212 ==

== ENCOUNTER 2024-06-05 12:44 | Outpatient (AMB) | payer OTHER, SELFPAY ==
[2024-06-05 12:53] VITALS: BP 138/80; PULSE 91; O2SAT 96; BMI 25.9
--- NOTE | 2024-06-05 12:53 | MHC.PC.OV ---
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 Required: No Accompanied by: Self / Same As Patient Allergies cat dander Allergy (Mild, Verified 06/05/24 13:34) unknown dog dander Allergy (Mild, Verified 06/05/24 13:34) unknown house dust mite Allergy (Mild, Verified 06/05/24 13:34) unknown peach Allergy (Mild, Verified 06/05/24 13:34) unknown shrimp Allergy (Mild, Verified 06/05/24 13:34) lip tingling scallops Allergy (Mild, Uncoded 06/05/24 13:34) unknown Medication List - Last Reconciled 06/05/24 by Susannah Manzo MD albuterol sulfate 90 mcg/actuation (Ventolin HFA) 2 puffs PO Q4-6H PRN 30 days amitriptyline 150 mg (1.5 x 100 mg) PO BEDTIME 90 days aspirin (Adult Low Dose Aspirin) 81 mg PO DAILY atorvastatin 10 mg PO BEDTIME 90 days blood pressure monitor As directed cetirizine 10 mg PO DAILY cholecalciferol (vitamin D3) 25 mcg PO DAILY 90 days clonazepam 0.5 mg PO TID famotidine 40 mg PO BEDTIME folic acid 1 mg PO DAILY 90 days gabapentin 300 mg PO TID PRN omeprazole 40 mg PO DAILY sennosides (Natural Senna Laxative) 17.2 mg (2 x 8.6 mg) PO BEDTIME trazodone 150 mg PO BEDTIME 90 days Tobacco use date assessed: 06/05/24 Dental Screening Dental Screen Date: 06/05/24 Did you have a dental visit in the last 12 months?: No Did you have a dental problem in the last 6 months where you did not have access to dental care?: No Was dental information given to patient?: No HPI HPI Comments History of Present Illness Details The patient is a 59-year-old female presenting for a routine physical examination. Her comprehensive medical history includes regular mammogram screenings and colonoscopies, indicative of standard preventive care protocols. She underwent right hip replacement surgery in 2021, a cystectomy owing to hematuria, as well as multiple sections. Her immunization history records a recent tetanus booster administered in alignment with her granddaughter's , scheduling the next vaccine for renewal in two years. The patient has essential hypertension, managed with a reduced atorvastatin dosage from 80 mg to 10 mg subsequent to medical evaluations for hyperlipidemia. Amitriptyline is used for her depression and anxiety, alongside an inhaler for respiratory issues. Omeprazole, dosed at 40 mg, is administered for gastroesophageal reflux disease, with additional medications including cetirizine, famotidine, gabapentin, and senna as needed for specific conditions. Family history notes maternal mortality from breast cancer and hypertension, with no major medical concerns reported for her father. The individual's psychosocial context involves stress related to her older daughter, albeit with noted refraining from initiating ADHD medication offered during a previous pediatric practice role. Recent imaging, inclusive of CT and MRI scans, sought to assess cerebrovascular anomalies, while allergy tests identified sensitivities to feline and canine allergens. Cardiologic evaluations, such as echocardiogram and EKG, displayed unremarkable outcomes. - Mammography performed in November of the previous year. - Colonoscopy in 2022, with another planned follow-up in approximately three years. - Tetanus booster administered, with the next due in two years. - Regular hip maintenance following right hip replacement surgery. - Compliance with hypertension management via atorvastatin. - Allergy testing completed, revealing allergies to cats and dogs. - Routine psychiatric and neurologic evaluations for depression and anxiety. - Echocardiogram and EKG with normal results. - Counseling on medication adherence for prescribed regimens, notably the cessation of aspirin. - Nutritional supplementation with vitamin D and folic acid to be resumed. - Management for GERD with increased omeprazole dosage. [facility] Medical History Moderate major depression Esophageal candidiasis Tubulovillous adenoma Tubular adenoma Diverticulosis Normocytic anemia Asthma Mild recurrent major depression Insomnia Pure hypercholesterolemia Hypovitaminosis D Osteoarthritis of right knee B12 deficiency Allergic rhinitis Right knee pain Lumbar pain Pelvic pain Overweight Microcytic anemia Depression with anxiety Fibromyalgia GERD (gastroesophageal reflux disease) Asthma Surgical History (Updated 06/05/24 @ 13:08 by Susannah Manzo MD) History of esophagogastroduodenoscopy (EGD) Hx of colonoscopy History of total right hip replacement Hx laparoscopic cholecystectomy Previous section Family History Mother Hypertension Breast cancer, Onset Age: 73 Father No problems noted. Social History Household Members: Spouse and Children Housing: House Alcohol intake: never Patient Tobacco Use Status: Never used Tobacco Tobacco use type: Cigarette e-Cigarette/Vaping Use: Never Used Second Hand Smoke Exposure: No service: No Current occupational status: disabled Sexual orientation: Straight/Heterosexual Gender identity: Female Cognitive needs: No Hearing needs: No Vision needs: Yes (reading glasses) Female Reproductive History Menstrual Age of Menarche: 15 Questionnaire PHQ-9 Over the last 2 weeks, how often have you been bothered by any of the following problems? 1. Little interest or pleasure in doing things: nearly every day 2. Feeling down, depressed, or hopeless: nearly every day 3. Trouble falling or staying asleep, or sleeping too much: not at all 4. Feeling tired or having little energy: more than half the days 5. Poor appetite or overeating: not at all 6. Feeling bad about yourself - or that you are a failure or have let yourself or your family down: nearly every day 7. Trouble concentrating on things, such as reading the newspaper or watching television: not at all 8. Moving or speaking so slowly that other people could have noticed. Or the opposite - being so fidgety or restless that you have been moving around a lot more than usual: not at all 9. Thoughts that you would be better off or of hurting yourself in some way: not at all Total score: 11 Depression Screening Interpretation: Positive Depression Screening Follow-up: Existing condition, In treatment and Follow-up Visit Requested Depression Screening Done: Yes 36712 - PHQ-9 Billing: Yes Source: Developed by Drs. Abiodun Yates, Adri Schmitt, Ethan Medina and colleagues, with an educational javier from [employer]. Thrive Questionnaire Date Thrive assessed: 05/30/24 I am a: Patient What is your living situation today?: I have a steady place to live Within the past 12 months, did the food you bought not last and you didn't have the money to get more?: Never true Within the past 12 months, did you worry whether your food would run out before you got money to buy more?: Never true Do you have trouble paying for medicines?: No Do you have trouble getting transportation to medical appointments?: No Do you have trouble paying your heating and electricity bill?: No Do you have trouble taking care of your child, family member or friend?: No Do you have trouble with day-to-day activities such as bathing, preparing meals, shopping, managing finances, etc.?: No Are you currently unemployed and looking for a job?: No Are you interested in more education?: No Please select the resources that you would like help with: Transportation Currently or been in a relationship where the following occur: No concerns reported THRIVE Score: 0 AUDIT C Alcohol Use Questionnaire (AUDIT-C) 1. How often do you have a drink containing alcohol?: Never 3. How often do you have six or more drinks on one occasion?: Never Total Score: 0 Score Reviewed/Action Taken: No JOSE-7 AMB Questionnaire JOSE-7 Date JOSE - 7 assessed: 06/05/24 Feeling nervous, anxious, or on edge: 0 = Not at all Not being able to stop or control worryin = Not at all Worrying too much about different things: 0 = Not at all Trouble relaxin = Not at all Being so restless that it is hard to sit still: 0 = Not at all Becoming easily annoyed or irritable: 0 = Not at all Feeling afraid as if something awful might happen: 0 = Not at all Total JOSE-7 score (0-4 normal; 5-9 mild; 10-14 moderate; 15-21 severe): 0 Source: Developed by Drs. Abiodun Yates, Adri Schmitt, Ethan Medina and colleagues, with an educational javier from [employer]. JOSE-7 Assessment Billing JOSE-7 Assessment Tool: JOSE-7 Assessment 42683 Review of Systems Const All systems reviewed & are unremarkable except as noted in HPI and below Card Denies chest pain at rest, Denies chest pain with activity, Denies edema, Denies irregular heart rhythm, Denies claudication, Denies dyspnea, Denies dyspnea on exertion, Denies orthopnea, Denies paroxysmal nocturnal dyspnea and Denies slow heart rate Resp Denies cough, Denies dyspnea and Denies dyspnea on exertion GI Denies abdominal pain, Denies change in bowel habits, Denies excessive flatus, Denies nausea and Denies vomiting Neuro Denies lack of coordination Physical exam (Primary Care) Vital Signs: Last Vital Signs Pulse 91 06/05/24 12:53 BP 138/80 06/05/24 12:53 Pulse Ox 96 06/05/24 12:53 Oxygen Delivery Method Room Air 06/05/24 12:53 BMI result Body Mass Index 25.9 Tobacco/Smoking Status: Tobacco use Status Tobacco use date assessed 06/05/24 06/05/24 12:54 Patient Tobacco Use Status Never used Tobacco 06/05/24 12:54 Tobacco use type Cigarette 06/05/24 12:54 e-Cigarette/Vaping Use Never Used 06/05/24 12:54 PHQ-9: PHQ-9 Score PHQ-9: Total score 11 06/05/24 13:09 Depression Screening Interpretation: Positive Depression Screening Follow-up: Existing condition, In treatment and Follow-up Visit Requested Thrive Assessment: Date of Thrive Assessment Date Thrive assessed 05/30/24 06/05/24 12:54 Currently or been in a relationship where the following occur: No concerns reported [facility] Head: Yes normal to inspection, Yes normocephalic and Yes atraumatic Ears: external ears normal Eyes General: appearance normal, both eyes and all related structures Eyelids: Yes eyelids normal Conjunctivae: conjunctivae normal Neck Neck: Yes normal visual inspection and Yes supple Resp Effort & Inspection: normal respiratory effort Auscultation: clear to auscultation bilaterally Cardio Jugular venous distension: no JVD Rate: regular rate Rhythm: regular rhythm Heart sounds: S1 normal heart sound present and S2 normal heart sound present GI Inspection: Yes normal to inspection Palpation (GI): Soft to palpation and nontender Auscultation: normal bowel sounds Skin General skin exam: no rashes or lesions noted Neuro General: no focal motor deficits Extrem General: Yes full ROM Psych Appearance: grossly normal Coding Level of Care Code Est Pt Prev Care 40-64y(23163) Diagnoses Physical exam Z00.00 Mild recurrent major depression F33.0 Additional Codes JOSE-7 Assessment Billing - JOSE-7 Assessment Tool: JOSE-7 Assessment 43408 ([id number]) PHQ-9 - 72593 - PHQ-9 Billing: Yes ([id number]) Time Spent (min) 33 Assessment & Plan Assessment & Plan (1) Physical exam: Code(s): Z00.00 - Encounter for general adult medical examination without abnormal findings Category: Medical (2) Mild recurrent major depression: Code(s): F33.0 - Major depressive disorder, recurrent, mild Category: Medical Plan The ongoing management of the patient's essential hypertension will involve the continuation of atorvastatin at the adjusted dosage. Behavioral health care will include the use of amitriptyline for depression and anxiety management, supported by neurologically prescribed clonazepam. Gastroesophageal reflux is managed with a heightened dose of omeprazole. The patient is advised to maintain avoidance of aspirin to manage cardiovascular risk factors. She will resume nutritional supplementation with vitamin D and folic acid. Scheduled screening colonoscopy planning aligns with preventive health protocols. Continued monitoring of allergies to pets is suggested, with an emphasis on any emerging symptoms due to proven sensitivities. A neurological follow-up remains crucial regarding the vascular knot identified, despite the neurology department's assessment requiring additional evaluations. Health maintenance also involves regular monitoring of vital indicators and fostered compliance with the prescribed medical and lifestyle directives. Patient was informed and verbally consented to the use of an ambient scribe for clinic note documentation during this visit. I outlined the importance of continuing atorvastatin at the current dosage due to concerns with past elevated levels for hyperlipidemia management. For depression and anxiety, the ongoing prescription of amitriptyline and clonazepam remains unchanged and explained. We discussed the benefits of resuming vitamin D and folic acid supplementation for her present medical needs. The risks and prevention steps were articulated, avoiding aspirin for cardiovascular reasons, and allergy management required adjustment concerning her pets. The necessity of a neurology follow-up concerning potential cerebrovascular issues was prioritized due to noted medical incidents leading to testing. Recommendations for a timely colonoscopy were reiterated per preventive agendas. Orders: Orders IRON PROFILE Today D64.9 - Anemia, unspecified Comprehensive Met. Panel Today Z00.00 - Encounter for general adult medical examination without abnormal findings Vitamin B12 and Folate Today E53.8 - Deficiency of other specified B group vitamins Vitamin D 25-OH Total Today E55.9 - Vitamin D deficiency, unspecified Complete Blood Count Auto Diff Today D64.9 - Anemia, unspecified Lipid Panel Today E78.5 - Hyperlipidemia, unspecified Saliva Cortisol Today R00.2 - Palpitations Medications: Refilled cetirizine 10 mg PO DAILY 90 tabs 1RF for allergies J01.90 - Acute sinusitis, unspecified Patient Instructions: - Continue taking atorvastatin 10 mg daily for hyperlipidemia management. - Maintain regular use of amitriptyline and clonazepam as instructed for mental health. - Use omeprazole 40 mg for GERD management at the prescribed times. - Avoid aspirin as previously advised. - Resume taking vitamin D and folic acid supplements. - Arrange a follow-up appointment with neurology regarding previous incidents. - Continue with preventive health screenings as scheduled. - Monitor and manage pet allergies diligently. - Ensure compliance with scheduled wellness checks and screenings.
--- OUTSIDE RECORDS SUMMARY | 2024-06-05 14:56 | XMS_ITS | Clinical Summary ---
Author Organization [facility] Address [address] [place] [address] Care Team Providers Care Technical Translator Name Role Phone Unavailable Primary Care Provider [...] Recombinant (2 of 2) 10/24/2021 08/30/19 22 [id number] ( season) 2023 12/09/2021, 02/23/2021, 08/01/2020, Additional history exists Imm-Influenza (#1) 2023 12/26/2020, 0 11/23/2019, 12/25/2018, Additional history exists Alcohol and Drug Screen 03/21/2024 Depression Annual Screen 03/21/2024 Cervical Ablation/Cold-Knife Conization Discontinued Cervical Cryotherapy Discontinued Colposcopy Discontinued Endometrial Biopsy Discontinued Excision/Leep Discontinued HPV Genotyping Discontinued Vaginal Pap Discontinued Vulvoscopy Discontinued Insurance [facility] [employer] PLAN Member Subscriber Plan / Payer (Ef fective 2020-Present) Name:Stephanie Cornejo Relation to Subscriber:Self Name:Stephanie Cornejo Payer ID:[id number] Group ID:[id number] Type:Medicaid Address: [facility] [address] [place] [address]
--- OUTSIDE RECORDS SUMMARY | 2024-06-05 14:56 | XMS_ITS | Clinical Summary ---
Author Organization [facility] Address [address] [place] [address] Phone Care Team Providers Care Dispatcher Electric Power Name Role Phone Unavailable Primary Care Provider [...]
== END 2024-06-05 13:29 | disposition home or self-care (01) ==
LOC: HO.HMCH 12:44
PROVIDERS: PCP Internal Medicine; Visit Provider Internal Medicine
DX: Z00.00 Encounter for general adult medical examination without abnormal findings (principal); F33.0 Major depressive disorder, recurrent, mild

== ENCOUNTER → 2024-06-05 12:44 | Outpatient (BNVA) | payer OTHER, SELFPAY | PROVIDERS: PCP Internal Medicine; Visit Provider Internal Medicine | DX: Z00.00 Encounter for general adult medical examination without abnormal findings (principal); F33.0 Major depressive disorder, recurrent, mild | CPT/HCPCS: 96127; 99396 ==

== ENCOUNTER 2024-06-13 13:15 | Outpatient (AMB) | payer OTHER, SELFPAY ==
--- NOTE | 2024-06-13 13:17 | MHC.OFFVIS ---
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 She is doing well with no insole cementer concerns. Currently not sexually active x 10 years. Had vaginal pain and dryness. Attempting to eat a healthy diet with calcium and vitamin D and stays active with exercise. Last pap smear; 2019. Last mammogram; 2023. Colonoscopy is UTD. Family history of breast, and ovarian cancer. No FH of colon cancer. [facility] Medical History Moderate major depression Esophageal candidiasis Tubulovillous adenoma Tubular adenoma Diverticulosis Normocytic anemia Asthma Mild recurrent major depression Insomnia Pure hypercholesterolemia Hypovitaminosis D Osteoarthritis of right knee B12 deficiency Allergic rhinitis Right knee pain Lumbar pain Pelvic pain Overweight Microcytic anemia Depression with anxiety Fibromyalgia GERD (gastroesophageal reflux disease) Asthma Surgical History History of esophagogastroduodenoscopy (EGD) Hx of colonoscopy History of total right hip replacement Hx laparoscopic cholecystectomy Previous section Family History Mother Hypertension Breast cancer, Onset Age: 73 Father No problems noted. Family/Other Ovarian cancer Social History Household Members: Spouse and Children Housing: House Alcohol intake: never Patient Tobacco Use Status: Never used Tobacco Tobacco use type: Cigarette e-Cigarette/Vaping Use: Never Used Second Hand Smoke Exposure: No service: No Current occupational status: disabled Sexual orientation: Straight/Heterosexual Gender identity: Female Cognitive needs: No Hearing needs: No Vision needs: Yes (reading glasses) Female Reproductive History Menstrual Age of Menarche: 15 Menopause type: natural Total pregnancies: 5 Full term: 4 Number of Living Children: 4 Ab spontaneous: 1 Date of last pap smear: 09/07/19 (neg pap and hpv) Date of Mammogram: 12/09/23 (Birad 1) Review of Systems Const All systems reviewed & are unremarkable except as noted in HPI and below Reports as per HPI Eyes Reports no additional complaints ENT Reports no additional complaints Card Reports no additional complaints Resp Reports no additional complaints GI Reports as per HPI and Reports no additional complaints Reports as per HPI Musc Reports no additional complaints Skin/Breast Reports as per HPI Neuro Reports no additional complaints Psych Reports no additional complaints Endo Reports no additional complaints Sg/Lymph Reports no additional complaints Aller/Immun Reports no additional complaints Physical Exam Vital Signs: BMI result Body Mass Index 26.4 Const General: cooperative, healthy appearing, no acute distress, well developed and alert Orientation/consciousness: patient oriented x3 HEENT Head: Yes normal to inspection Eyes General: appearance normal, both eyes and all related structures Neck Neck: Yes normal visual inspection Thyroid: Thyroid normal Chest Chest palpation & inspection: normal inspection of the chest and other (no puckering, dimpling, peau de orange, retraction, discharge, masses) Breast/axilla inspection: normal inspection of the breasts Breast/axilla palpation: normal palpation of the breasts Resp Effort & Inspection: normal respiratory effort GI Inspection: Yes normal to inspection Palpation (GI): Soft to palpation Rectal Exam - Female: deferred General: Yes bladder normal to palpation External Female Exam: normal external appearance and normal appearance of the urethra Speculum Exam - Vagina: normal appearance of the vagina, normal palpation, normal vaginal discharge and vagina atrophic (moderate atrophy, bled slightly with Pap) Speculum Exam - Cervix: normal appearance of the cervix, normal palpation and Other cervical findings present (posterior position) Bimanual exam- vagina & uterus: normal bimanual exam, normal palpation, uterine size normal, bladder normal to palpation, normal palpation and non-tender Bimanual Exam- Adnexa, other: no masses Skin General skin exam: no rashes or lesions noted Rashes: no rashes Neuro General: patient oriented x3 Cognition (Neuro): normal cognition Extrem General: Yes normal to inspection Psych Attitude: cooperative Thought process: Normal thought process present Assessment & Plan Assessment & Plan (1) Encounter for annual routine gynecological examination: Code(s): Z01.419 - Encounter for gynecological examination (general) (routine) without abnormal findings Category: Medical Plan Discussed: Current recommendations for pap smears per ASCCP guidelines. Pap smear obtained. Breast awareness, periodic self breast exams and yearly mammogram. Maintain a healthy lifestyle, well balanced diet including Calcium 1,200 mg and Vitamin D 600 IU daily, and routine exercise. Handout on osteoporosis prevention provided. Contact the office with any postmenopausal bleeding. Patient verbalizes understanding and agrees to the plan of care. She was given opportunity to ask questions and all questions were answered to the best of my ability. RTO in 1 year for annual insole cementer exam. This note is constructed using voice recognition software. While every effort has been made to ensure accuracy, greeter guest services errors may have been included. Coding Level of Care Code Est Pt Prev Care 40-64y(03533) Diagnoses Encounter for annual routine gynecological examination Z01.419
[2024-06-13 13:19] VITALS: BP 122/72; BMI 26.4
--- OUTSIDE RECORDS SUMMARY | 2024-06-13 15:44 | XMS_ITS | Clinical Summary ---
Author Organization [facility] Address [address] [place] [address] Care Team Providers Care Solutions Specialist Name Role Phone Unavailable Primary Care Provider Unavailabl e Source Comments PLEASE NOTE, if this patient is a minor, it may be UNLAWFUL to discuss sensitive information that is contained in these records (such as FAMILY PLANNING, MENTAL HEALTH or SUBSTANCE ABUSE) with the minor patient's parent or other person without the patient's specific authorization.[facility] Immunizations Immunization Administration Dates Next Due PFIZER COVID VACCINE, [...] Recombinant (2 of 2) 10/24/2021 08/30/19 22 [id number] ( season) 2023 12/09/2021, 02/23/2021, 08/01/2020, Additional history exists Imm-Influenza (#1) 2023 12/26/2020, 0 11/23/2019, 12/25/2018, Additional history exists Alcohol and Drug Screen 03/21/2024 Depression Annual Screen 03/21/2024 Cervical Ablation/Cold-Knife Conization Discontinued Cervical Cryotherapy Discontinued Colposcopy Discontinued Endometrial Biopsy Discontinued Excision/Leep Discontinued HPV Genotyping Discontinued Vaginal Pap Discontinued Vulvoscopy Discontinued Insurance [facility] [employer] PLAN Member Subscriber Plan / Payer (Ef fective 2020-Present) Name:Stephanie Cornejo Relation to Subscriber:Self Name:Stephanie Cornejo Payer ID:[id number] Group ID:[id number] Type:Medicaid Address: [facility] [address] [place] [address]
--- OUTSIDE RECORDS SUMMARY | 2024-06-13 15:44 | XMS_ITS | Clinical Summary ---
Author Organization [facility] Address [address] [place] [address] Phone Care Team Providers Care Strip Catcher Name Role Phone Unavailable Primary Care Provider [...]
== END 2024-06-13 13:56 | disposition home or self-care (01) ==
LOC: HO.HWS 13:15
PROVIDERS: PCP Internal Medicine; Visit Provider Advanced Practice Midwife
DX: Z01.419 Encounter for gynecological examination (general) (routine) without abnormal findings (principal)
CPT/HCPCS: 99396; 99459

== ENCOUNTER 2024-06-13 13:15 | Outpatient (REF) | payer OTHER, SELFPAY ==
[2024-06-20 12:31] LABS: HPV Genotype 16 Negative (Negative); HPV Genotype 18 Negative (Negative); HPV High Risk Negative (Negative)
== END 2024-06-13 13:16 | disposition home or self-care (01) ==
LOC: HO.LNP 13:15
PROVIDERS: PCP Internal Medicine; Visit Provider Advanced Practice Midwife
DX: Z01.419 Encounter for gynecological examination (general) (routine) without abnormal findings (principal); Z78.0 Asymptomatic menopausal state
CPT/HCPCS: 87626; 88175; 99396; 99459

== ENCOUNTER 2024-10-23 12:00 | Outpatient (AMB) | payer OTHER, SELFPAY ==
--- NOTE | 2024-10-23 12:16 | MHC.OFFVIS ---
Vital Signs 10/23/24 12:17 Height 5 ft 1 in Intake Visit Reasons: 3 month follow up Allergies cat dander Allergy (Mild, Verified 10/23/24 12:23) unknown dog dander Allergy (Mild, Verified 10/23/24 12:23) unknown house dust mite Allergy (Mild, Verified 10/23/24 12:23) unknown peach Allergy (Mild, Verified 10/23/24 12:23) unknown shrimp Allergy (Mild, Verified 10/23/24 12:23) lip tingling scallops Allergy (Mild, Uncoded 10/23/24 12:23) unknown Medication List - Last Reconciled 10/23/24 by Lucille Babcock, NOE albuterol sulfate 90 mcg/actuation (Ventolin HFA) 2 puffs PO Q4-6H PRN 30 days amitriptyline 150 mg (1.5 x 100 mg) PO BEDTIME 90 days atorvastatin 10 mg PO BEDTIME 90 days blood pressure monitor As directed cetirizine 10 mg PO DAILY cholecalciferol (vitamin D3) 25 mcg PO DAILY 90 days clonazepam 0.5 mg PO TID famotidine 40 mg PO BEDTIME folic acid 1 mg PO DAILY 90 days gabapentin 300 mg PO TID PRN omeprazole 40 mg PO DAILY sennosides (Natural Senna Laxative) 17.2 mg (2 x 8.6 mg) PO BEDTIME trazodone 150 mg PO BEDTIME 90 days HPI Comments Details: She was babysitting her granddaughter today. 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 Chronic stress related to family and relationships. Memory was about the same. FM pains stable with gabapentin. Sleep was okay. No falls. Had some spasms and involuntary movements in R hand along with some dizziness in 03/2024, taken by ambulance to [facility]. She was apparently found to have low blood pressure and low potassium which was replaced. Had small pseudoseizure on ambulance. No further episodes. Memory not great, forgetful at times. 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 Had enough credits to graduate from early and went to college for 1 year. Worked at [employer] from [id number], retired when she started having palpitations. More generalized FM pains with colder weather. Could not tolerate weaning off gabapentin, taking 300mg in AM and 600mg at bedtime. Taking clonazepam 0.5mg in AM and 1mg at bedtime. Had episode in 12/2023 at [employer] where she felt like she could not move for about 15 seconds. No major seizure-like episodes. Occasional muscle twitching brought on by stress. Had seizure-like episode in 04/2023 when under a lot of stress where her body became rigid and felt electrical sensation all over. No LOC, fully alert. Able to hear, see, and respond appropriately, lasted less than 60 seconds. Clonazepam helps. Has 2 daughters and 2 sons. Issues with short term memory, trouble word finding and will misplace objects. Headaches have been okay. Chronic LBP continues. Previously had MRI LS spine which showed a small right sided L5-S1 disc HNP with foraminal encroachment. Right sided intermittent sciatic pain. Stretching and core strengthening that has helped the back pain. She has chronic tension headaches, dizziness and fibromyalgia. Legs feel heavy. She has some back and body pains. She did some PT. [facility] Medical History (Updated 10/23/24 @ 12:20 by Lucille Babcock CNP) MCI (mild cognitive impairment) Moderate major depression Esophageal candidiasis Tubulovillous adenoma Tubular adenoma Diverticulosis Normocytic anemia Asthma Mild recurrent major depression Insomnia Pure hypercholesterolemia Hypovitaminosis D Osteoarthritis of right knee B12 deficiency Allergic rhinitis Right knee pain Lumbar pain Pelvic pain Overweight Microcytic anemia Depression with anxiety Fibromyalgia GERD (gastroesophageal reflux disease) Asthma Surgical History History of esophagogastroduodenoscopy (EGD) Hx of colonoscopy History of total right hip replacement Hx laparoscopic cholecystectomy Previous section Family History Mother Hypertension Breast cancer, Onset Age: 73 Father No problems noted. Family/Other Ovarian cancer Social History Household Members: Spouse and Children Housing: House Alcohol intake: never Patient Tobacco Use Status: Never used Tobacco Tobacco use type: Cigarette e-Cigarette/Vaping Use: Never Used Second Hand Smoke Exposure: No service: No Current occupational status: disabled Sexual orientation: Straight/Heterosexual Gender identity: Female Cognitive needs: No Hearing needs: No Vision needs: Yes (reading glasses) Female Reproductive History Menstrual Age of Menarche: 15 Review of Systems Const Denies chills, Denies daytime sleepiness, Denies difficulty sleeping, Denies fatigue, Denies fever(s), Denies frequent falls, Denies headache(s), Denies increased appetite, Denies poor appetite, Denies snoring, Denies weakness, Denies weight gain and Denies weight loss Eyes Denies loss of vision ENT Denies vertigo, Denies dizziness, Denies headache(s) and Reports neck pain Card Denies chest pain at rest, Denies chest pain with activity, Denies syncope, Denies leg edema, Denies palpitations, Denies dyspnea and Denies dyspnea on exertion Resp Denies cough, Denies dyspnea, Denies dyspnea on exertion and Denies snoring GI Denies abdominal pain, Denies constipation, Denies heartburn, Denies diarrhea and Denies nausea Denies urinary frequency, Denies urinary incontinence and Denies urinary urgency Musc Denies abnormal gait, Reports back pain, Reports myalgias, Reports arthralgias, Reports neck pain, Denies numbness and Denies tingling Neuro Denies abnormal gait, Denies vertigo, Denies dizziness, Denies syncope, Denies frequent falls, Denies headache(s), Denies lack of coordination, Denies loss of vision, Reports memory loss, Denies numbness, Denies Other visual disturbances, Denies restless legs, Denies seizure-like activity, Denies tingling, Denies paresthesias, Denies tremor(s) and Denies weakness Psych Reports anxiety, Denies depression, Denies auditory hallucinations, Reports memory loss and Denies visual hallucinations Endo Denies fatigue and Denies palpitations Physical Exam Const Other: General Appearance:? normal, in no acute distress. Heart:? S1, S2 normal, no murmurs. Lungs:? clear anteriorly and posteriorly. Musculoskeletal:? normal. Extremities:? no edema. Psych:? alert, oriented, cognitive function intact, cooperative with exam. Neuro Other: Abnormal Neurological Findings:?Strabismus, MMSE 26/30. Mental Status: alert and oriented X 3. Normal attention, orientation, memory, and affect. Cranial Nerves: Pupils are equal, round, and reactive to light. External ocular muscles are intact. Visual szymanski are full, no ptosis. Face is symmetrical, no facial weakness or droop. Facial sensations are normal. Tongue protrudes in midline. Palate elevates symmetrically. Shoulder shrugging is normal Motor Examination: Normal muscle tone, bulk and strength. No atrophy or fasciculations. No drift of the extended upper extremities. DTR 2+. Plantars are flexor. Sensory Exam: Normal light touch, temperature, pinprick, vibration, and joint-position sensations. Rhomberg sign is absent. Coordination: No ataxia. No titubation. Tsikhk-ww-hcgr, fbwt-[id number]-gamc test, and rapid alternating movements were normal. Gait Exam: Within normal limits. Cerebellar Signs: Pokimx-fi-oeew is okay. Extrapyramidal System: No tremor, rigidity with normal facial expressions. No bradykinesia. No bradyphrenia. Normal arm swing and posture. No propulsion or retropulsion. Speech: Normal. Results Reviewed Results Reviewed: EEG 02/10/24: WNL CT brain at [facility] 02/2024: Normal for age (reported) CT brain at [facility] 04/02/2024: No acute pathology (reported) CTA brain/neck at [facility] 04/02/2024: 1. No acute intracranial large vessel occlusion 2. Severe stenosis of proximal right PICA 3. No hemodynamically significant stenoses of extracranial internal carotid and vertebral arteries (reported) MRI brain/MRA at [facility] 04/03/2024: 1. No acute/subacute infarct, mass, hemorrhage, or other acute intracranial abnormality. 2. MRA of the head does not provide additional information regarding the right PICA stenosis seen on CTA, no new intracranial large vessel occlusion or high-grade stenosis (reported) CTA brain at [facility] 05/28/2024: Narrowing of the proximal right posterior inferior cerebellar artery on the prior CTA of head and neck 04/02/2024 has resolved (reported) Assessment & Plan Assessment & Plan (1) Psychogenic nonepileptic seizure: Code(s): F44.5 - Conversion disorder with seizures or convulsions Category: Medical Plan: Continue clonazepam 0.5mg 1 tablet in the morning and 2 tablets at bedtime. (2) Fibromyalgia: Code(s): M79.7 - Fibromyalgia Category: Medical Plan: Continue gabapentin 300mg 1 capsule in the morning and 2 capsules in the evening. (3) MCI (mild cognitive impairment): Code(s): G31.84 - Mild cognitive impairment of uncertain or unknown etiology Category: Medical Plan: Stay physically and socially active. Coding Level of Care Code Est Pt Level 4 (05401) Diagnoses Psychogenic nonepileptic seizure F44.5 Fibromyalgia M79.7 MCI (mild cognitive impairment) G31.84
--- OUTSIDE RECORDS SUMMARY | 2024-10-23 12:49 | XMS_ITS | Clinical Summary ---
Author Organization [facility] Address [address] [place] [address] Phone Care Team Providers Care Wool Washer Feeder Name Role Phone Unavailable Primary Care Provider [...] of 3 - 19+ 3-dose series) 1986 COVID-19 Vaccine ( - 2023-2 5 season) 2023 Influenza Vaccines (#1) 2024 HIB Vaccines Aged Out No longer eligi [...]
--- OUTSIDE RECORDS SUMMARY | 2024-10-23 12:49 | XMS_ITS | Clinical Summary ---
Author Organization [facility] Address [address] [place] [address] Care Team Providers Care Church Business Administrator Name Role Phone Unavailable Primary Care Provider [...] Health Maintenance Due Date Last Done Comments Anxiety Screening 1967 Diabetes Screening 1967 HPV Screening 1967 Hepatitis C Screening 1967 Lipid Screening 1967 Pap + HPV 1967 Tobacco Screening 1967 HIV Screening 1982 Hypertension Screening (#1) 1985 Imm-DTaP/Tdap/Td (1 - Tdap) 1986 Imm-Hepatitis B (1 of 3 - 19 + 3-dose series) 1986 Cervical Cancer Screening 01/07/1988 Pap Smear 01/07/1988 Breast Cancer Screening (Mammogram) 2007 CT Colonography 01/07/2012 Colonoscopy 01/07/2012 Colorectal Cancer Screening 01/07/2012 FIT/gFOBT 01/07/2012 Fecal DNA 01/07/2012 Flexible Sigmoidoscopy 01/07/2012 Imm-Pneumococcal 50+ (1 of 1 - PCV) 2017 Imm-Zoster, Recombinant (2 of 2) 10/24/2021 08/30/19 22 [id number] ( season) 2023 12/09/2021, 02/23/2021, 08/01/2020, Additional history exists Alcohol and Drug Screen 03/21/2024 Depression Annual Screen 03/21/2024 Imm-Influenza (#1) 2024 12/26/2020, 0 11/23/2019, 12/25/2018, Additional history exists Cervical Ablation/Cold-Knife Conization Discontinued Cervical Cryotherapy Discontinued Colposcopy Discontinued Endometrial Biopsy Discontinued Excision/Leep Discontinued HPV Genotyping Discontinued Vaginal Pap Discontinued Vulvoscopy Discontinued Insurance [facility] [employer] PLAN Member Subscriber Plan / Payer (Ef fective 2020-Present) Name:Stephanie Cornejo Relation to Subscriber:Self Name:Stephanie Cornejo Payer ID:[id number] Group ID:[id number] Type:Medicaid Address: [facility] [address] [place] [address]
== END 2024-10-23 12:34 | disposition home or self-care (01) ==
LOC: HO.HSM 12:01
PROVIDERS: PCP Internal Medicine; Visit Provider Registered Nurse
DX: F44.5 Conversion disorder with seizures or convulsions (principal); M79.7 Fibromyalgia; G31.84 Mild cognitive impairment of uncertain or unknown etiology
CPT/HCPCS: 99214

== ENCOUNTER → 2024-10-23 12:00 | Outpatient (BNVA) | payer OTHER, SELFPAY | PROVIDERS: PCP Internal Medicine; Visit Provider Registered Nurse | DX: F44.5 Conversion disorder with seizures or convulsions (principal); M79.7 Fibromyalgia; G31.84 Mild cognitive impairment of uncertain or unknown etiology | CPT/HCPCS: 99212 ==

== ENCOUNTER 2024-11-06 12:41 | Outpatient (AMB) | payer OTHER, SELFPAY ==
[2024-11-06 12:57] VITALS: BP 118/70; PULSE 88; O2SAT 96; BMI 26.7
--- NOTE | 2024-11-06 12:57 | A.OFFVIS_ITS ---
Vital Signs 11/06/24 12:57 Height 5 ft 1 in Weight 141 lb 1.533 oz BMI 26.7 BP 118/70 Blood Pressure Location Rt brachial Position Sitting Pulse 88 Pulse Source Pulse Oximeter Pulse Oximetry (%) 96 Oxygen Delivery Method Room Air Intake Visit Reasons: f/u Intake Note: Est pt for mgmt of diverticulosis, GERD. CC: Pt would like to discuss PPI and whether or not she needs to continue taking the medication. Pt denies any other concerns or changes since last visit. Endodontic Assistant Required: No Accompanied by: Grand Child Allergies cat dander Allergy (Mild, Verified 11/06/24 13:01) unknown dog dander Allergy (Mild, Verified 11/06/24 13:01) unknown house dust mite Allergy (Mild, Verified 11/06/24 13:01) unknown peach Allergy (Mild, Verified 11/06/24 13:01) unknown shrimp Allergy (Mild, Verified 11/06/24 13:01) lip tingling scallops Allergy (Mild, Uncoded 11/06/24 13:01) unknown HPI HPI f/u: Details: LAST VISIT Tubular adenoma Diverticulosis GERD (gastroesophageal reflux disease) Dysphagia Plan Patient will continue taking omeprazole 40 mg in the morning. Avoid dietary triggers in late night snacking. Staying upright for minimal 3 hours after meals discussed with patient. Patient will take famotidine at bedtime. Patient was encouraged to take senna on more regular basis so she does not get constipated this might be the reason why she has acid reflux and epigastric pain. Discussed with patient the importance of feeling like she empty completely when she has a bowel movement. Patient will follow-up in 6 months. She will call our office if she will have any GI concerning symptoms. Patient is agreeable to current plan of care and verbalizes understanding of instructions. She was given the opportunity to ask questions and all questions answered. ? TODAY'S VISIT Patient is here today for follow-up. Patient reports that he feels well. She has symptoms of acid reflux or suppressed with omeprazole, however patient reports that she has has been on omeprazole for so long and is wondering if she can, COVID. Patient reports that she is moving her bowels well. Uses senna as needed. Patient denies dyspepsia, dysphagia or odynophagia. Denies melena, hematochezia, unintentional weight loss or ribbon like stools. Patient had colonoscopy in November of 2023 and will be due for colorectal screening in 3 years. She [facility] Medical History (Updated 10/23/24 @ 12:20 by Lucille Babcock, NOE) MCI (mild cognitive impairment) Moderate major depression Esophageal candidiasis Tubulovillous adenoma Tubular adenoma Diverticulosis Normocytic anemia Asthma Mild recurrent major depression Insomnia Pure hypercholesterolemia Hypovitaminosis D Osteoarthritis of right knee B12 deficiency Allergic rhinitis Right knee pain Lumbar pain Pelvic pain Overweight Microcytic anemia Depression with anxiety Fibromyalgia GERD (gastroesophageal reflux disease) Asthma Surgical History History of esophagogastroduodenoscopy (EGD) Hx of colonoscopy History of total right hip replacement Hx laparoscopic cholecystectomy Previous section Family History Mother Hypertension Breast cancer, Onset Age: 73 Father No problems noted. Family/Other Ovarian cancer Social History Household Members: Spouse and Children Housing: House Alcohol intake: never Patient Tobacco Use Status: Never used Tobacco Tobacco use type: Cigarette e-Cigarette/Vaping Use: Never Used Second Hand Smoke Exposure: No service: No Current occupational status: disabled Sexual orientation: Straight/Heterosexual Gender identity: Female Cognitive needs: No Hearing needs: No Vision needs: Yes (reading glasses) Female Reproductive History Menstrual Age of Menarche: 15 Review of Systems Const Denies weight gain and Denies weight loss ENT Reports no additional complaints, Denies dysphagia and Denies odynophagia Card Reports no additional complaints Resp Reports no additional complaints GI Reports abdominal pain (epigastric), Denies belching, Denies melena, Denies bloating, Denies change in bowel habits, Reports constipation (occasional, uses senna as needed), Denies dysphagia, Denies excessive flatus, Denies dyspepsia, Reports heartburn, Denies diarrhea, Denies loose stools, Denies nausea, Denies odynophagia and Denies vomiting Musc Reports no additional complaints Neuro Reports no additional complaints Psych Reports no additional complaints Endo Reports no additional complaints Physical Exam Const General: healthy appearing, no acute distress and well developed Nutritional Appearance: well nourished Orientation/consciousness: patient oriented x3 Resp Effort & Inspection: normal respiratory effort, able to speak in complete sentences, no tracheal deviation and symmetric chest movement Auscultation: clear to auscultation bilaterally Cardio Rate: regular rate GI Inspection: Yes normal to inspection and No distended Palpation (GI): Soft to palpation, not firm, nontender and No hepatosplenomegaly present Auscultation: normal bowel sounds General: Yes no CVA tenderness Back/Spine/Pelvis Back: no CVA tenderness Skin General skin exam: elasticity normal, turgor normal and dry skin Neuro General: patient oriented x3 Psych Appearance: grossly normal Mental Status: mental status grossly normal Assessment & Plan Assessment & Plan (1) Diverticulosis: Code(s): K57.90 - Diverticulosis of intestine, part unspecified, without perforation or abscess without bleeding Category: Medical (2) GERD (gastroesophageal reflux disease): Code(s): K21.9 - Gastro-esophageal reflux disease without esophagitis Category: Medical Qualifiers: Esophagitis presence: esophagitis presence not specified Qualified Code(s): K21.9 - Gastro-esophageal reflux disease without esophagitis (3) Constipation: Code(s): K59.00 - Constipation, unspecified Qualifiers: Constipation type: slow transit constipation Qualified Code(s): K59.01 - Slow transit constipation Plan Patient will take omeprazole and try to wean herself off. Patient was encouraged to try to marked on a calendar so she does not miss to many days in a row and will have rebound reflux. Patient was encouraged to avoid dietary triggers in late and snacking. Staying upright for minimum 3 hours after meals discussed with patient. Patient was encouraged to increase fluid intake and activity to promote better bowel motility. Patient can continue senna as needed. She will return in 6 months. Patient was encouraged to call our office if she will have any GI concerning symptoms. He is agreeable to this plan and verbalizes understanding of instructions. She was given the opportunity to ask questions and all questions answered. Thank you for allowing me to participate in her care Medications: Refilled famotidine 40 mg PO BEDTIME 90 tabs 3RF K21.9 - Gastro-esophageal reflux disease without esophagitis omeprazole 40 mg PO DAILY 90 caps 1RF K21.9 - Gastro-esophageal reflux disease without esophagitis sennosides (Natural Senna Laxative) 17.2 mg (2 x 8.6 mg) PO BEDTIME 60 tabs 3RF constipation K59.00 - Constipation, unspecified Coding Level of Care Code Est Pt Level 3 (25401) Diagnoses Diverticulosis K57.90 Gastroesophageal reflux disease, unspecified whether esophagitis present K21.9 Esophagitis presence: esophagitis presence not specified Slow transit constipation K59.01 Constipation type: slow transit constipation Time Spent (min) 25 Comment 15 minutes spent with patient and additional 10 minutes spent reviewing her records
--- OUTSIDE RECORDS SUMMARY | 2024-11-06 13:53 | XMS_ITS | Clinical Summary ---
Author Organization [facility] Address [address] [place] [address] Phone Care Team Providers Care Poultry Farmworker Name Role Phone Unavailable Primary Care Provider [...]
--- OUTSIDE RECORDS SUMMARY | 2024-11-06 13:53 | XMS_ITS | Clinical Summary ---
Author Organization [facility] Address [address] [place] [address] Care Team Providers Care Director Pharmacovigilance Name Role Phone Unavailable Primary Care Provider [...] Recombinant (2 of 2) 10/24/2021 08/30/19 22 [id number] ( season) 2023 12/09/2021, 02/23/2021, 08/01/2020, Additional history exists Alcohol and Drug Screen 03/21/2024 Depression Annual Screen 03/21/2024 Imm-Influenza (#1) 2024 12/26/2020, 0 11/23/2019, 12/25/2018, Additional history exists Cervical Ablation/Cold-Knife Conization Discontinued Cervical Cryotherapy Discontinued Colposcopy Discontinued Endometrial Biopsy Discontinued Excision/Leep Discontinued HPV Genotyping Discontinued Vaginal Pap Discontinued Vulvoscopy Discontinued Insurance [facility] [employer] PL[employer] Member Subscriber Plan / Payer (Ef fective 2020-Present) Name:Stephanie Cornejo Relation to Subscriber:Self Name:Stephanie Cornejo Payer ID:[id number] Group ID:[id number] Type:Medicaid Address: [facility] [address] [place] [address]
== END 2024-11-06 13:10 | disposition home or self-care (01) ==
LOC: HO.HGI 12:42
PROVIDERS: PCP Internal Medicine; Visit Provider Nurse Practitioner Family
DX: K57.90 Diverticulosis of intestine, part unspecified, without perforation or abscess without bleeding (principal); K21.9 Gastro-esophageal reflux disease without esophagitis; K59.01 Slow transit constipation
CPT/HCPCS: 99213

== ENCOUNTER → 2024-11-06 12:41 | Outpatient (BNVA) | payer OTHER, SELFPAY | PROVIDERS: PCP Internal Medicine; Visit Provider Nurse Practitioner Family | DX: K21.9 Gastro-esophageal reflux disease without esophagitis (principal); K57.90 Diverticulosis of intestine, part unspecified, without perforation or abscess without bleeding; K59.01 Slow transit constipation | CPT/HCPCS: 99212 ==

== ENCOUNTER 2024-12-06 13:18 | Outpatient (AMB) | payer OTHER, SELFPAY ==
--- NOTE | 2024-12-06 13:21 | MHC.PC.OV ---
Vital Signs 12/06/24 13:25 Height 5 ft 1 in Weight 140 lb 8 oz BMI 26.5 BP 110/72 Blood Pressure Location Lt brachial Position Sitting Pulse 84 Pulse Source Pulse Oximeter Pulse Oximetry (%) 98 Oxygen Delivery Method Room Air Intake Visit Reasons: 6 month f/u Test Clerk Required: No Accompanied by: Self / Same As Patient Allergies cat dander Allergy (Mild, Verified 12/06/24 13:38) unknown dog dander Allergy (Mild, Verified 12/06/24 13:38) unknown house dust mite Allergy (Mild, Verified 12/06/24 13:38) unknown peach Allergy (Mild, Verified 12/06/24 13:38) unknown shrimp Allergy (Mild, Verified 12/06/24 13:38) lip tingling scallops Allergy (Mild, Uncoded 12/06/24 13:38) unknown Medication List - Last Reconciled 12/06/24 by Susannah Manzo MD albuterol sulfate 90 mcg/actuation (Ventolin HFA) 2 puffs PO Q4-6H PRN 30 days amitriptyline 150 mg (1.5 x 100 mg) PO BEDTIME 90 days atorvastatin 10 mg PO BEDTIME 90 days blood pressure monitor As directed cetirizine 10 mg PO DAILY cholecalciferol (vitamin D3) 25 mcg PO DAILY 90 days clonazepam 0.5 mg PO TID famotidine 40 mg PO BEDTIME folic acid 1 mg PO DAILY 90 days gabapentin 300 mg orally 1 capsule in the morning and 2 capsules in the evening; 90 days omeprazole 40 mg PO DAILY sennosides (Natural Senna Laxative) 17.2 mg (2 x 8.6 mg) PO BEDTIME trazodone 150 mg PO BEDTIME 90 days Tobacco use date assessed: 12/06/24 Dental Screening Dental Screen Date: 12/06/24 Did you have a dental visit in the last 12 months?: No Did you have a dental problem in the last 6 months where you did not have access to dental care?: No Was dental information given to patient?: Patient has dentist HPI HPI Comments History of Present Illness Details The patient is a 59-year-old female presenting with a follow-up visit to manage multiple chronic conditions and to review blood work results. Has mild depression with anxiety stable. The patient has a history of allergic rhinitis, for which she uses cetirizine and requires refills. She denies any allergies to cats and dogs but has a known allergy to scallops. Cognitive impairment is being monitored by neurology, attributed to side effects of sleeping medications. The patient reports frustration with cognitive changes as she approaches 60 years of age. Nerve pain is managed with gabapentin, which the patient reports needing refills for due to experiencing pain in her legs. The pain is described as peculiar and unlike anything she has experienced before. The patient experiences constipation, for which she uses Senna as needed. She reports no issues with smoking or alcohol use. Heartburn is managed with omeprazole, and the patient is also on famotidine. Hyperlipidemia is being managed with atorvastatin 10 mg, and the patient is due for blood work to check cholesterol levels. [facility] Medical History (Updated 12/06/24 @ 15:44 by Susannah Manzo MD) MCI (mild cognitive impairment) Moderate major depression Esophageal candidiasis Tubulovillous adenoma Tubular adenoma Diverticulosis Normocytic anemia Asthma Mild recurrent major depression Insomnia Pure hypercholesterolemia Hypovitaminosis D Osteoarthritis of right knee B12 deficiency Allergic rhinitis Right knee pain Lumbar pain Pelvic pain Overweight Microcytic anemia Depression with anxiety Fibromyalgia GERD (gastroesophageal reflux disease) Asthma Surgical History History of esophagogastroduodenoscopy (EGD) Hx of colonoscopy History of total right hip replacement Hx laparoscopic cholecystectomy Previous section Family History Mother Hypertension Breast cancer, Onset Age: 73 Father No problems noted. Family/Other Ovarian cancer Social History Household Members: Spouse and Children Housing: House Alcohol intake: never Patient Tobacco Use Status: Never used Tobacco Tobacco use type: Cigarette e-Cigarette/Vaping Use: Never Used Second Hand Smoke Exposure: No service: No Current occupational status: disabled Sexual orientation: Straight/Heterosexual Gender identity: Female Cognitive needs: No Hearing needs: No Vision needs: Yes (reading glasses) Female Reproductive History Menstrual Age of Menarche: 15 Questionnaire Thrive Questionnaire Date Thrive assessed: 05/30/24 I am a: Patient What is your living situation today?: I have a steady place to live Within the past 12 months, did the food you bought not last and you didn't have the money to get more?: Never true Within the past 12 months, did you worry whether your food would run out before you got money to buy more?: Never true Do you have trouble paying for medicines?: No Do you have trouble getting transportation to medical appointments?: No Do you have trouble paying your heating and electricity bill?: No Do you have trouble taking care of your child, family member or friend?: No Do you have trouble with day-to-day activities such as bathing, preparing meals, shopping, managing finances, etc.?: No Are you currently unemployed and looking for a job?: No Are you interested in more education?: No Please select the resources that you would like help with: Transportation Currently or been in a relationship where the following occur: No concerns reported THRIVE Score: 0 AUDIT C Alcohol Use Questionnaire (AUDIT-C) 1. How often do you have a drink containing alcohol?: Never 3. How often do you have six or more drinks on one occasion?: Never Total Score: 0 Score Reviewed/Action Taken: No JOSE-7 AMB Questionnaire JOSE-7 Date JOSE - 7 assessed: 06/05/24 Source: Developed by Drs. Abiodun Yates, Adri Schmitt, Ethan Medina and colleagues, with an educational javier from [employer]. Review of Systems Const All systems reviewed & are unremarkable except as noted in HPI and below Resp Denies cough Musc Reports arthralgias Physical exam (Primary Care) Vital Signs: Last Vital Signs Pulse 84 12/06/24 13:25 BP 110/72 12/06/24 13:25 Pulse Ox 98 12/06/24 13:25 Oxygen Delivery Method Room Air 12/06/24 13:25 BMI result Body Mass Index 26.5 Tobacco/Smoking Status: Tobacco use Status Tobacco use date assessed 12/06/24 12/06/24 13:30 Patient Tobacco Use Status Never used Tobacco 12/06/24 13:23 Tobacco use type Cigarette 12/06/24 13:23 e-Cigarette/Vaping Use Never Used 12/06/24 13:23 Thrive Assessment: Date of Thrive Assessment Date Thrive assessed 05/30/24 12/06/24 13:23 Currently or been in a relationship where the following occur: No concerns reported Resp Effort & Inspection: normal respiratory effort Auscultation: clear to auscultation bilaterally Cardio Jugular venous distension: no JVD Rate: regular rate Rhythm: regular rhythm Heart sounds: S1 normal heart sound present and S2 normal heart sound present Extrem General: Yes full ROM Coding Level of Care Code Est Pt Level 4 (00953) Complex EM visit Add On G2211 Diagnoses Mild recurrent major depression F33.0 JOSE (generalized anxiety disorder) F41.1 Pure hypercholesterolemia E78.00 Gastroesophageal reflux disease, unspecified whether esophagitis present K21.9 Esophagitis presence: esophagitis presence not specified MCI (mild cognitive impairment) G31.84 Chronic idiopathic constipation K59.04 Allergic rhinitis J30.9 Time Spent (min) 21 Assessment & Plan Assessment & Plan (1) Mild recurrent major depression: Code(s): F33.0 - Major depressive disorder, recurrent, mild Category: Medical (2) JOSE (generalized anxiety disorder): Code(s): F41.1 - Generalized anxiety disorder Category: Medical (3) Pure hypercholesterolemia: Code(s): E78.00 - Pure hypercholesterolemia, unspecified Category: Medical (4) GERD (gastroesophageal reflux disease): Code(s): K21.9 - Gastro-esophageal reflux disease without esophagitis Category: Medical Qualifiers: Esophagitis presence: esophagitis presence not specified Qualified Code(s): K21.9 - Gastro-esophageal reflux disease without esophagitis (5) MCI (mild cognitive impairment): Code(s): G31.84 - Mild cognitive impairment of uncertain or unknown etiology Category: Medical (6) Chronic idiopathic constipation: Code(s): K59.04 - Chronic idiopathic constipation Category: Medical (7) Allergic rhinitis: Code(s): J30.9 - Allergic rhinitis, unspecified Category: Medical Plan Plan Patient was informed and verbally consented to the use of an ambient scribe for clinic note documentation during this visit. 1. Allergic Rhinitis The patient requires refills for cetirizine to manage allergic rhinitis symptoms. 2. Cognitive Impairment Neurology is monitoring cognitive impairment, which is attributed to side effects of sleeping medications. 3. Nerve Pain Gabapentin is prescribed for nerve pain management, and the patient reports needing refills due to experiencing leg pain. 4. Constipation The patient uses Senna as needed to manage constipation. 5. Heartburn Heartburn is managed with omeprazole and famotidine. 6. Hyperlipidemia The patient is on atorvastatin 10 mg for hyperlipidemia, and blood work is planned to check cholesterol levels. Orders: Orders Vitamin D 25-OH Total Today E55.9 - Vitamin D deficiency, unspecified Vitamin B12 and Folate Today E53.8 - Deficiency of other specified B group vitamins IRON PROFILE Today D64.9 - Anemia, unspecified Comprehensive [place]. Panel Fast Today G31.84 - Mild cognitive impairment of uncertain or unknown etiology Lipid Panel Today E78.5 - Hyperlipidemia, unspecified Complete Blood Count Auto Diff Today D64.9 - Anemia, unspecified
[2024-12-06 13:25] VITALS: BP 110/72; PULSE 84; O2SAT 98; BMI 26.5
--- OUTSIDE RECORDS SUMMARY | 2024-12-06 15:20 | XMS_ITS | Clinical Summary ---
Author Organization [facility] Address [address] [place] [address] Phone Care Team Providers Care Stock Speculator Name Role Phone Unavailable Primary Care Provider [...] 19+ 3-dose series) 1986 Influenza Vaccines (#1) 2024 COVID-19 Vaccine (2023-2 5 season) 2024 HIB Vaccines Aged Out No longer [...]
--- OUTSIDE RECORDS SUMMARY | 2024-12-06 15:20 | XMS_ITS | Clinical Summary ---
Author Organization [facility] Address [address] [place] [address] Care Team Providers Care Electrical Journeyman Name Role Phone Unavailable Primary Care Provider [...] Recombinant (2 of 2) 10/24/2021 08/30/19 22 Alcohol and Drug Screen 03/21/2024 Depression Annual Screen 03/21/2024 [id number] ( season) 2024 12/09/2021, 02/23/2021, 08/01/2020, Additional history exists Imm-Influenza (#1) 2024 12/26/2020, 0 11/23/2019, 12/25/2018, Additional history exists Cervical Ablation/Cold-Knife Conization Discontinued Cervical Cryotherapy Discontinued Colposcopy Discontinued Endometrial Biopsy Discontinued Excision/Leep Discontinued HPV Genotyping Discontinued Vaginal Pap Discontinued Vulvoscopy Discontinued Insurance [facility] [employer] Member Subscriber Plan / Payer (Ef fective 2020-Present) Name:Stephanie Cornejo Relation to Subscriber:Self Name:Stephanie Cornejo Payer ID:[id number] Group ID:[id number] Type:Medicaid Address: [facility] [address] [place] [address]
== END 2024-12-06 13:56 | disposition home or self-care (01) ==
LOC: HO.HMCH 13:19
PROVIDERS: PCP Internal Medicine; Visit Provider Internal Medicine
DX: F33.0 Major depressive disorder, recurrent, mild (principal); F41.1 Generalized anxiety disorder; E78.00 Pure hypercholesterolemia, unspecified; K21.9 Gastro-esophageal reflux disease without esophagitis; G31.84 Mild cognitive impairment of uncertain or unknown etiology; K59.04 Chronic idiopathic constipation; J30.9 Allergic rhinitis, unspecified

== ENCOUNTER → 2024-12-06 13:18 | Outpatient (BNVA) | payer OTHER, SELFPAY | PROVIDERS: PCP Internal Medicine; Visit Provider Internal Medicine | DX: F33.0 Major depressive disorder, recurrent, mild (principal); F41.9 Anxiety disorder, unspecified; J30.9 Allergic rhinitis, unspecified; R51.9 Headache, unspecified; E78.5 Hyperlipidemia, unspecified; F41.1 Generalized anxiety disorder; E78.00 Pure hypercholesterolemia, unspecified; K21.9 Gastro-esophageal reflux disease without esophagitis; G31.84 Mild cognitive impairment of uncertain or unknown etiology; K59.04 Chronic idiopathic constipation | CPT/HCPCS: 99212 ==

== ENCOUNTER → 2024-12-14 13:00 | Outpatient (BNV) | payer OTHER, SELFPAY | PROVIDERS: PCP Internal Medicine; Visit Provider Internal Medicine | DX: Z12.31 Encounter for screening mammogram for malignant neoplasm of breast (principal) | CPT/HCPCS: 77063; 77067 ==

== ENCOUNTER 2024-12-14 13:05 | Outpatient (REF) | payer OTHER, SELFPAY ==
--- NOTE | ~2024-12-14 | MM_ITS ---
EXAMINATION: MM SCREENING DIGITAL BREAST TOMOSYNTHESIS, BILATERAL CLINICAL INFORMATION: Screening. Asymptomatic. COMPARISON: Mammography: Comparison is made with available priors TECHNIQUE: Digital breast mammography with tomosynthesis is performed in both the craniocaudal and mediolateral oblique views along with computer-aided detection (CAD). FINDINGS: There are scattered areas of fibroglandular density. There are no significant masses, abnormal calcifications, or other abnormalities. MM/MM tomosynthesis screening BI IMPRESSION: No mammographic evidence of malignancy. ASSESSMENT: BI-RADS Category 1: Negative RECOMMENDATION: Routine annual mammography screening. 1 year F/U This examination should not preclude the clinical evaluation of a suspicious palpable abnormality. This patient's information was entered into a reminder system with a target due date for their next mammogram. Electronically signed by: Lurdes Lau DO 12/18/2024 09:51 AM EDRambo
--- OUTSIDE RECORDS SUMMARY | 2024-12-14 14:25 | XMS_ITS | Clinical Summary ---
Author Organization [facility] Address [address] [place] [address] Care Team Providers Care Glove Operator Name Role Phone Unavailable Primary Care Provider [...] Drug Screen 03/21/2024 Depression Annual Screen 03/21/2024 [id number] ( season) 2024 12/09/2021, 02/23/2021, 08/01/2020, Additional history exists Imm-Influenza (#1) 2024 12/26/2020, 0 11/23/2019, 12/25/2018, Additional history exists Cervical Ablation/Cold-Knife Conization Discontinued Cervical Cryotherapy Discontinued Colposcopy Discontinued Endometrial Biopsy Discontinued Excision/Leep Discontinued HPV Genotyping Discontinued Vaginal Pap Discontinued Vulvoscopy Discontinued Insurance [facility] [employer] PLAN Member Subscriber Plan / Payer (Ef fective 2020-Present) Name:Stephanie Cornejo Relation to Subscriber:Self Name:Stephanie Cornejo Payer ID:[id number] Group ID:[id number] Type:Medicaid Address: [facility] [address] [place] [address]
--- OUTSIDE RECORDS SUMMARY | 2024-12-14 14:25 | XMS_ITS | Clinical Summary ---
Author Organization [facility] Address [address] [place] [address] Phone Care Team Providers Care Hot Box Checker Name Role Phone Unavailable Primary Care Provider [...]
== END 2024-12-14 13:06 | disposition home or self-care (01) ==
LOC: HO.MAMMO 13:05
PROVIDERS: PCP Internal Medicine; Visit Provider Internal Medicine
DX: Z12.31 Encounter for screening mammogram for malignant neoplasm of breast (principal)
CPT/HCPCS: 77063; 77067